=== PATIENT | male | born 1935 | race Caucasian/White ===

== ENCOUNTER → 2017-11-23 08:31 | Outpatient (CLI) | payer MEDICARE, SELFPAY ==
[2017-11-23 09:37] LABS: Add Manual Diff / Slide Review NO; Basophils Percent Auto 0.7 % (0-2); Eosinophils Percent Auto 4.6 % (2-4); Hematocrit 43.9 % (41-53); Hemoglobin 14.9 g/dL (13.5-17.5); Mean Corpuscular HGB Conc 33.9 % (30-36); Mean Corpuscular Hemoglobin 30.4 PG (26-34); Mean Corpuscular Volume 89.5 fL (80-100); Monocytes Percent Auto 10.2 % (3-14); Neutrophils Absolute Auto 4500 /uL (3000-5900); Neutrophils Percent Auto 66.5 % (50-75); Platelet Count 155 X10^3/uL (150-400); Red Blood Cell Count 4.91 X10^6/uL (4.5-5.9); White Blood Cell Count 6.7 X10^3/uL (4.5-11.0)
[2017-11-23 10:06] LABS: Alanine Aminotransferase 36 IU/L (21-72); Albumin 4.6 g/dL (3.5-5.0); Albumin Globulin Ratio 1.5 (1.0-2.8); Alkaline Phosphatase 76 U/L (38-126); Aspartate Aminotransferase 27 IU/L (17-59); BUN Creatinine Ratio 20.8 (6-22); Bilirubin Total 0.9 mg/dL (0.2-1.3); Blood Urea Nitrogen 27 mg/dL (9-20); Calcium 9.1 mg/dL (8.4-10.2); Carbon Dioxide 28 mmol/L (22-32); Chloride 104 mmol/L (98-107); Cholesterol 162 mg/dL (140-199); Estimated Glomerular Filt Rate 53.1 mL/min (>60); Globulin 3.1 g/dL (1.7-4.1); Glucose 102 mg/dL (80-110); HDL Cholesterol 53 mg/dL (40-60); HEMOLYSIS < 15 (0-50); LDL Cholesterol Calculated 84 mg/dL (<100); Potassium 4.1 mmol/L (3.4-5.1); Sodium 144 mmol/L (137-145); Total Protein 7.7 g/dL (6.3-8.2); Triglycerides 125 mg/dL (35-150)
[2017-11-23 10:47] LABS: Hemoglobin A1C% w Est Avg Glu 5.9 % (4.0-6.0)
== END ==
PROVIDERS: Visit Provider Internal Medicine
DX: I48.91 Unspecified atrial fibrillation (principal); E78.00 Pure hypercholesterolemia, unspecified; N18.9 Chronic kidney disease, unspecified; R73.01 Impaired fasting glucose
CPT/HCPCS: 36415; 80053; 80061; 83036; 83880; 85025

== ENCOUNTER → 2018-03-02 11:05 | Outpatient (CLI) | payer MEDICARE, SELFPAY ==
--- NOTE | 2018-03-02 | DI.CT.S_ITS ---
PROCEDURE: CT CHEST WO CON INDICATIONS: Chronic obstructive pulmonary disease, unspecified TECHNIQUE: Noncontrast 5 mm thick sections acquired from the pulmonary apices to the posterior costophrenic angles. 7 mm thick coronal and sagittal MIP reformats were then acquired. For radiation dose reduction, the following was used: automated exposure control, adjustment of mA and/or kV according to patient size. COMPARISON: [facility], CHEST 2 VIEW, 05/22/2016, 11:58. FINDINGS: Image quality: Excellent. Lungs and pleura: Linear scarring/atelectasis in anterior medial aspect of left upper lobe is seen. Scarring/atelectasis in the anteromedial aspect of right upper and middle lobes are also noted. Scarring/atelectasis in posterior medial aspect of bilateral lower lobes are seen. There is mild centrilobular emphysema. No pleural effusions or pneumothorax. Central and peripheral airways are patent and normal in caliber. Mediastinum: Heart size is enlarged. Trace amount of pericardial effusion is seen. No mediastinal adenopathy by size criteria. Thoracic aorta and central pulmonary arteries are normal in size. Atherosclerotic calcifications are noted throughout coronary vessels and thoracic aorta. Esophagus is normal in caliber. No hiatal hernia. Bones and chest wall: No suspicious bony lesions. No vertebral body compression fractures. No axillary or supraclavicular adenopathy by size criteria. Asymmetrically enlarged left thyroid lobe is seen containing a 3 x 2.9 cm hypodense nodule in mid to lower pole of left thyroid lobe. Abdomen: Visualized upper abdominal solid organs and bowel loops appear normal in the absence of contrast. 2.4 cm well-circumscribed hypodensity structure is seen in left hepatic dome and likely represent a small cyst. IMPRESSION: 1. Mild centrilobular emphysema. No focal infiltrate, pleural effusion or pneumothorax. Airways patent. 2. Scarring/atelectasis scattered in the periphery of bilateral lung parker. 3. No mediastinal or hilar adenopathy. Cardiomegaly and trace amount of pericardial effusion. 4. Suggestion of left hepatic cyst as above. Dictated by: Abimael Kelley M.D. on 03/02/2018 at 14:15 Approved by: Abimael Kelley M.D. on 03/02/2018 at 14:22
== END ==
PROVIDERS: Visit Provider Internal Medicine
DX: J43.2 Centrilobular emphysema (principal); J98.4 Other disorders of lung
CPT/HCPCS: 71250

== ENCOUNTER → 2018-08-09 11:20 | Outpatient (CLI) | payer MEDICARE, SELFPAY ==
[2018-08-09 12:12] LABS: Add Manual Diff / Slide Review NO; Basophils Absolute Auto 100 /uL (0-100); Basophils Percent Auto 0.7 % (0-2); Eosinophils Absolute Auto 100 /uL (0-450); Eosinophils Percent Auto 1.9 % (2-4); Hematocrit 42.8 % (41-53); Hemoglobin 14.4 g/dL (13.5-17.5); Lymphocytes Absolute Auto 1300 /uL (1100-4500); Lymphocytes Percent Auto 17.3 % (25-40); Mean Corpuscular HGB Conc 33.7 % (30-36); Mean Corpuscular Hemoglobin 31.2 PG (26-34); Mean Corpuscular Volume 92.5 fL (80-100); Monocytes Absolute Auto 600 /uL (0-900); Monocytes Percent Auto 8.9 % (3-14); Neutrophils Absolute Auto 5200 /uL (1500-7000); Neutrophils Percent Auto 71.2 % (50-75); Platelet Count 113 X10^3/uL (150-400); Red Blood Cell Count 4.63 X10^6/uL (4.5-5.9); Red Cell Distribution Width 14.3 % (11.6-14.8); White Blood Cell Count 7.3 X10^3/uL (4.5-11.0)
[2018-08-09 12:18] LABS: Hemoglobin A1C% w Est Avg Glu 5.8 % (4.0-6.0)
[2018-08-09 12:39] LABS: Alanine Aminotransferase 37 IU/L (21-72); Albumin Globulin Ratio 1.6 (1.0-2.8); Alkaline Phosphatase 74 U/L (38-126); Aspartate Aminotransferase 23 IU/L (17-59); BUN Creatinine Ratio 21.5 (6-22); Bilirubin Total 0.6 mg/dL (0.2-1.3); Blood Urea Nitrogen 28 mg/dL (9-20); Calcium 8.7 mg/dL (8.4-10.2); Carbon Dioxide 24 mmol/L (22-32); Chloride 104 mmol/L (98-107); Globulin 2.5 g/dL (1.7-4.1); Glucose 132 mg/dL (80-110); HEMOLYSIS < 15 (0-50); Potassium 3.7 mmol/L (3.4-5.1); Sodium 140 mmol/L (137-145); Total Protein 6.5 g/dL (6.3-8.2)
== END ==
PROVIDERS: PCP Internal Medicine; Visit Provider Internal Medicine
DX: I48.91 Unspecified atrial fibrillation (principal); N18.9 Chronic kidney disease, unspecified; R73.01 Impaired fasting glucose
CPT/HCPCS: 36415; 80053; 83036; 85025

== ENCOUNTER → 2018-12-07 13:15 | Outpatient (CLI) | payer MEDICARE, SELFPAY | PROVIDERS: PCP Internal Medicine; Visit Provider Physician Assistant | DX: R21 Rash and other nonspecific skin eruption (principal) | CPT/HCPCS: 87070; 87205; 87252 ==

== ENCOUNTER → 2019-03-11 11:42 | Outpatient (CLI) | payer MEDICARE, SELFPAY ==
[2019-03-11 13:18] LABS: Blood Urea Nitrogen 36 mg/dL (9-20); Calcium 9.3 mg/dL (8.4-10.2); Carbon Dioxide 30 mmol/L (22-32); Chloride 102 mmol/L (98-107); Estimated Glomerular Filt Rate 44.9 mL/min (>60); Glucose 131 mg/dL (80-110); HEMOLYSIS < 15 (0-50); Potassium 4.2 mmol/L (3.4-5.1); Sodium 143 mmol/L (137-145)
[2019-03-11 13:54] LABS: TSH w/ Reflex to FT4 1.01 uIU/mL (0.47-4.68)
== END ==
PROVIDERS: Family Provider Internal Medicine; PCP Internal Medicine; Visit Provider Physician Assistant
DX: I48.0 Paroxysmal atrial fibrillation (principal)
CPT/HCPCS: 36415; 80048; 84443

== ENCOUNTER → 2019-03-28 08:56 | Outpatient (CLI) | payer MEDICARE, SELFPAY ==
--- NOTE | 2019-03-28 | DI.ECHO.S_ITS ---
[place] [facility]---------+ [facility] +---------+ : : [address] : : : : [id number] : : : : Phone: [phone] Echocardiogram Report + + :Name: RYAN CANELA Study Date: 03/28/2019 Height: 71 in : :[facility] Weight: 238 lb : : Gender: Male BSA: 2.3 m2 : :: 1935 Age: 83 yrs BP: 142/76 mmHg: :Reason For Study: AFIB : : Performed By: [facility] Staff : :Referring: UNSPECIFIED : + + Interpretation Summary 1) Normal left ventricular size, wall motion, and systolic function (EF 60- 65%). 2) Mildly enlarged right ventricular size with mildly to moderately reduced function. 3) The left atrium is severely dilated. The right atrium is moderate to severely dilated. 4) There is moderate aortic stenosis (valve area 1.0cm2, mean gradient 21mmHG, severity ratio 0.32). 5) There is moderate tricuspid regurgitation. 6) Right ventricular systolic pressure is estimated to be 58 mmHg plus the clinically estimated CVP which cannot be estimated on this exam. 7) Compared to the Echo done , aortic stenosis has progressed from mild to moderate on this study and pulmonary hypertension is present on this study. Procedure: A two-dimensional transthoracic echocardiogram with color flow and Doppler was performed. The study quality was technically adequate. Prior echo performed on 01/24/16. The patient was in normal sinus rhythm during the exam. Left Ventricle: The left ventricle is normal in size. There is mild concentric left ventricular hypertrophy. Left ventricular systolic function is normal. The ejection fraction is estimated to be 60-65%. Left ventricular wall motion is normal. Right Ventricle: The right ventricle is mildly dilated. Right ventricular systolic function is mild to moderately reduced. Atria: The left atrium is severely dilated. The right atrium is moderate to severely dilated. The interatrial septum is intact with no evidence for an atrial septal defect. Mitral Valve: The mitral valve leaflets appear mildly thickened, but open well. There is mild mitral annular calcification. There is mild mitral regurgitation. Aortic Valve: The aortic valve is moderately calcified. There is moderate aortic stenosis. The aortic valve area is 1.9 centimeters squared by planimetry. The calculated aortic valve area is 1.0 cm2. The peak aortic velocity is 3.0 m/sec. The aortic valve mean gradient is 21 mmHg. No aortic regurgitation is present. Tricuspid Valve: The tricuspid valve leaflets are thin and pliable. There is moderate tricuspid regurgitation. Right ventricular systolic pressure is estimated to be 58 mmHg plus the clinically estimated CVP which cannot be estimated on this exam. Pulmonic Valve: The pulmonic valve is not well visualized. There is trace pulmonic regurgitation. Great Vessels: The aortic root is normal size. The dimensions of the ascending aorta are normal. The pulmonary artery is normal size. The inferior vena cava was not visualized. Pericardium/ Pleura There is no pericardial effusion. There is no pleural effusion. MMode/2D Measurements & Calculations LVIDd: 5.1 cm LVOT diam: 2.0 cm LVIDs: 3.4 cm Ao root diam: 3.5 cm FS: 33.2 % Aortic Jxn: 2.7 cm EPSS: 0.66 cm asc Aorta Diam: 3.5 cm IVSd: 1.3 cm LVPWd: 1.3 cm LV mallory. diameter/BSA (cm/m^2): 2.3 LV sys. diameter/BSA (cm/m^2): 1.5 LA A2 area: 37.0 cm2 RA long axis: 5.9 cm LA A4 area: 32.4 cm2 RA area: 25.3 cm2 LA length (vol): 7.0 cm RA vol: 92.3 ml LA vol: 145.3 ml RA : 40.6 ml/m2 LA vol index: 64.0 ml/m2 TAPSE: 1.6 cm BLANQUITA (plan): 1.9 cm2 Doppler Measurements & Calculations Ao V2 max: 300.6 cm/sec LVOT Max Laurent: 96.3 cm/sec Ao V2 mean: 211.2 cm/sec LV V1 max P.7 mmHg Ao max P.1 mmHg LV V1 VTI: 22.8 cm Ao mean P.9 mmHg BLANQUITA(I,D): 1.0 cm2 Ao V2 VTI: 70.8 cm BLANQUITA(V,D): 1.0 cm2 sev ratio: 0.32 BLANQUITA indexed to BSA (cm^2/m^2): 0.45 MV E max laurent: 82.4 cm/sec TR max laurent: 376.6 cm/sec Med Peak E' Laurent: 6.8 cm/sec TR max P.7 mmHg E/E' med: 12.1 PA V2 max: 84.4 cm/sec Lat Peak E' Laurent: 9.2 cm/sec PA V2 mean: 59.7 cm/sec E/E' lat: 9.0 PA mean P.6 mmHg E/e' average: 10.5 PA Accel Time: 0.08 sec SV(LVOT): 72.4 ml Reading Physician:10:57 AM
== END ==
PROVIDERS: Family Provider Internal Medicine; PCP Internal Medicine; Visit Provider Physician Assistant
DX: I08.3 Combined rheumatic disorders of mitral, aortic and tricuspid valves (principal); I48.0 Paroxysmal atrial fibrillation; I27.20 Pulmonary hypertension, unspecified
CPT/HCPCS: 93306

== ENCOUNTER → 2019-04-14 08:58 | Outpatient (CLI) | payer MEDICARE, SELFPAY ==
[2019-04-14 10:23] LABS: Add Manual Diff / Slide Review NO; Basophils Absolute Auto 0 /uL (0-100); Basophils Percent Auto 0.6 % (0-2); Eosinophils Absolute Auto 100 /uL (0-450); Eosinophils Percent Auto 1.7 % (2-4); Hematocrit 43.3 % (41-53); Hemoglobin 14.8 g/dL (13.5-17.5); Lymphocytes Absolute Auto 1200 /uL (1100-4500); Lymphocytes Percent Auto 17.2 % (25-40); Mean Corpuscular HGB Conc 34.2 % (30-36); Mean Corpuscular Hemoglobin 30.9 PG (26-34); Mean Corpuscular Volume 90.1 fL (80-100); Monocytes Absolute Auto 600 /uL (0-900); Monocytes Percent Auto 8.2 % (3-14); Neutrophils Absolute Auto 5000 /uL (1500-7000); Neutrophils Percent Auto 72.3 % (50-75); Platelet Count 111 X10^3/uL (150-400); Red Blood Cell Count 4.81 X10^6/uL (4.5-5.9); Red Cell Distribution Width 14.4 % (11.6-14.8); White Blood Cell Count 6.9 X10^3/uL (4.5-11.0)
[2019-04-14 10:58] LABS: Blood Urea Nitrogen 28 mg/dL (9-20); Calcium 8.6 mg/dL (8.4-10.2); Carbon Dioxide 27 mmol/L (22-32); Chloride 104 mmol/L (98-107); Estimated Glomerular Filt Rate 48.6 mL/min (>60); Glucose 133 mg/dL (80-110); Potassium 3.6 mmol/L (3.4-5.1); Sodium 141 mmol/L (137-145)
[2019-04-14 10:59] LABS: HEMOLYSIS 54 (0-50)
== END ==
PROVIDERS: PCP Internal Medicine; Visit Provider Internal Medicine
DX: N18.9 Chronic kidney disease, unspecified (principal); I10 Essential (primary) hypertension; J44.9 Chronic obstructive pulmonary disease, unspecified
CPT/HCPCS: 36415; 80048; 85025

== ENCOUNTER → 2019-07-15 09:04 | Outpatient (CLI) | payer MEDICARE, SELFPAY ==
[2019-07-15 10:19] LABS: Alanine Aminotransferase 30 IU/L (<50); Albumin Globulin Ratio 1.2 (1.0-2.8); Alkaline Phosphatase 100 U/L (38-126); Aspartate Aminotransferase 28 IU/L (17-59); BUN Creatinine Ratio 19.7 (6-22); Bilirubin Total 0.7 mg/dL (0.2-1.3); Blood Urea Nitrogen 25 mg/dL (9-20); Carbon Dioxide 25 mmol/L (22-32); Chloride 107 mmol/L (98-107); Cholesterol 118 mg/dL (140-199); Estimated Glomerular Filt Rate 54.3 mL/min (>60); Globulin 3.4 g/dL (1.7-4.1); Glucose 150 mg/dL (80-110); HDL Cholesterol 29 mg/dL (40-60); HEMOLYSIS < 15 (0-50); LDL Cholesterol Calculated 58 mg/dL (<100); Potassium 3.6 mmol/L (3.4-5.1); Sodium 141 mmol/L (137-145); Total Protein 7.4 g/dL (6.3-8.2); Triglycerides 156 mg/dL (35-150)
== END ==
PROVIDERS: PCP Internal Medicine; Referring Provider Internal Medicine Cardiovascular Disease; Visit Provider Internal Medicine Cardiovascular Disease
DX: E78.5 Hyperlipidemia, unspecified (principal)
CPT/HCPCS: 36415; 80053; 80061

== ENCOUNTER → 2019-10-20 09:33 | Outpatient (CLI) | payer MEDICARE, SELFPAY ==
[2019-10-20 10:36] LABS: Add Manual Diff / Slide Review NO; Basophils Absolute Auto 100 /uL (0-100); Basophils Percent Auto 0.8 % (0-2); Eosinophils Absolute Auto 100 /uL (0-450); Eosinophils Percent Auto 1.9 % (2-4); Hematocrit 40.4 % (41-53); Hemoglobin 14.1 g/dL (13.5-17.5); Lymphocytes Absolute Auto 1000 /uL (1100-4500); Lymphocytes Percent Auto 13.8 % (25-40); Mean Corpuscular Hemoglobin 31.9 PG (26-34); Monocytes Absolute Auto 700 /uL (0-900); Monocytes Percent Auto 9.1 % (3-14); Neutrophils Absolute Auto 5300 /uL (1500-7000); Neutrophils Percent Auto 74.4 % (50-75); Platelet Count 100 X10^3/uL (150-400); Red Blood Cell Count 4.44 X10^6/uL (4.5-5.9); Red Cell Distribution Width 14.9 % (11.6-14.8); White Blood Cell Count 7.2 X10^3/uL (4.5-11.0)
[2019-10-20 10:51] LABS: Alanine Aminotransferase 24 IU/L (<50); Albumin 4.1 g/dL (3.5-5.0); Albumin Globulin Ratio 1.4 (1.0-2.8); Alkaline Phosphatase 77 U/L (38-126); Aspartate Aminotransferase 24 IU/L (17-59); BUN Creatinine Ratio 23.7 (6-22); Blood Urea Nitrogen 33 mg/dL (9-20); Calcium 9.2 mg/dL (8.4-10.2); Carbon Dioxide 27 mmol/L (22-32); Chloride 104 mmol/L (98-107); Cholesterol 163 mg/dL (140-199); Estimated Glomerular Filt Rate 48.9 mL/min (>60); Glucose 150 mg/dL (80-110); HDL Cholesterol 41 mg/dL (40-60); HEMOLYSIS < 15 (0-50); LDL Cholesterol Calculated 77 mg/dL (<100); Sodium 139 mmol/L (137-145); Total Protein 7.1 g/dL (6.3-8.2); Triglycerides 224 mg/dL (35-150)
[2019-10-20 15:02] LABS: Hemoglobin A1C% w Est Avg Glu 6.4 % (4.0-6.0)
== END ==
PROVIDERS: PCP Internal Medicine; Referring Provider Internal Medicine; Visit Provider Internal Medicine
DX: D69.6 Thrombocytopenia, unspecified (principal); E78.00 Pure hypercholesterolemia, unspecified; R73.01 Impaired fasting glucose
CPT/HCPCS: 36415; 80053; 80061; 83036; 85025

== ENCOUNTER → 2019-12-05 09:44 | Outpatient (CLI) | payer MEDICARE, SELFPAY ==
[2019-12-05 10:46] LABS: BUN Creatinine Ratio 22.6 (6-22); Blood Urea Nitrogen 30 mg/dL (9-20); Calcium 8.9 mg/dL (8.4-10.2); Carbon Dioxide 26 mmol/L (22-32); Chloride 104 mmol/L (98-107); Estimated Glomerular Filt Rate 51.5 mL/min (>60); Glucose 134 mg/dL (80-110); HEMOLYSIS < 15 (0-50); Potassium 4.1 mmol/L (3.4-5.1); Sodium 138 mmol/L (137-145)
== END ==
PROVIDERS: PCP Internal Medicine; Referring Provider Physician Assistant; Visit Provider Physician Assistant
DX: I10 Essential (primary) hypertension (principal)
CPT/HCPCS: 36415; 80048

== ENCOUNTER → 2020-04-10 17:04 | Outpatient (ROUT) | payer MEDICARE, SELFPAY ==
[2020-04-10 17:12] LABS: Add Manual Diff / Slide Review NO; Basophils Absolute Auto 0 /uL (0-100); Basophils Percent Auto 0.6 % (0-2); Eosinophils Absolute Auto 200 /uL (0-450); Eosinophils Percent Auto 2.9 % (2-4); Hemoglobin 13.1 g/dL (13.5-17.5); Lymphocytes Absolute Auto 1000 /uL (1100-4500); Lymphocytes Percent Auto 13.5 % (25-40); Mean Corpuscular HGB Conc 33.6 % (30-36); Mean Corpuscular Hemoglobin 30.8 PG (26-34); Mean Corpuscular Volume 91.7 fL (80-100); Monocytes Absolute Auto 600 /uL (0-900); Monocytes Percent Auto 8.3 % (3-14); Neutrophils Absolute Auto 5300 /uL (1500-7000); Neutrophils Percent Auto 74.7 % (50-75); Platelet Count 118 X10^3/uL (150-400); Red Blood Cell Count 4.25 X10^6/uL (4.5-5.9); Red Cell Distribution Width 15.1 % (11.6-14.8); White Blood Cell Count 7.1 X10^3/uL (4.5-11.0)
[2020-04-10 17:16] LABS: BUN Creatinine Ratio 20.1 (6-22); Blood Urea Nitrogen 27 mg/dL (9-20); Calcium 8.9 mg/dL (8.4-10.2); Carbon Dioxide 27 mmol/L (22-32); Chloride 103 mmol/L (98-107); Glucose 151 mg/dL (80-110); HEMOLYSIS < 15 (0-50); Potassium 4.1 mmol/L (3.4-5.1); Sodium 138 mmol/L (137-145)
== END ==
PROVIDERS: PCP Internal Medicine; Visit Provider Internal Medicine
DX: E11.9 Type 2 diabetes mellitus without complications (principal); N18.9 Chronic kidney disease, unspecified; D69.6 Thrombocytopenia, unspecified
CPT/HCPCS: 80048; 85025

== ENCOUNTER 2022-02-25 07:47 | Emergency (ER) | payer MEDICARE, SELFPAY ==
[2022-02-25 07:53] VITALS: BP 180/83; PULSE 81; PULSE 88; RESP 20; TEMP 36.6; O2SAT 97
--- NOTE | 2022-02-25 08:01 | ED_ITS ---
HPI - Male Genitourinary General Chief complaint: Urogenital-Male Stated complaint: peeing blood Time Seen by Provider: 02/25/22 08:01 Source: patient Mode of arrival: Ambulatory Limitations: no limitations History of Present Illness HPI Narrative: This is an 86-year-old male with history of atrial fibrillation on warfarin, flecainide and COPD with history of prior kidney stones. Patient states this morning he started having dysuria, hematuria little bit of abdominal pain. Patient states feels similar to when he is had prior kidney stones. Patient denies fevers or chills. Patient denies any nausea or vomiting. No new chest pain or shortness of breath. No abdominal or flank pain currently but states he took a Percocet earlier. Patient denies constipation. Some diarrhea earlier this week but has since stopped. No black or bloody stools. Patient describes dysuria, no urgency frequency feels there may be sense of incomplete emptying but he does not feel like he is retaining or has a lot of urine in his bladder. Patient has had a prostatectomy for prostate cancer in the past, denies any prior cardiac surgeries. Denies any allergies to medications. Quit smoking in 2013. Drinks 1-2 alcoholic drinks daily but has not had any for the past week. Primary care is Dr. Nino. He is accompanied by his of 40 years today. Related Data Home Medications Medication Instructions Recorded Confirmed carvedilol phosphate 20 mg 20 mg PO DAILY 12/07/18 12/07/18 capsule,[id number] multiphase flecainide 50 mg tablet 50 mg PO Q12H 12/07/18 12/07/18 fluticasone propion-salmeterol inhalation 12/07/18 12/07/18 [Advair Diskus] furosemide 40 mg tablet 40 mg PO DAILY 12/07/18 12/07/18 losartan 50 mg tablet 50 mg PO DAILY 12/07/18 12/07/18 multivitamin-ferrous 1 tab PO DAILY 12/07/18 12/07/18 fumarate-folic acid 18 mg-400 mcg tablet (Centrum) simvastatin 20 mg tablet 20 mg PO BEDTIME 12/07/18 12/07/18 tiotropium bromide [Spiriva inhalation 12/07/18 12/07/18 Respimat] warfarin 2.5 mg tablet 2.5 mg PO DAILY 12/07/18 12/07/18 Previous Rx's Medication Instructions Recorded triamcinolone acetonide 0.1 % 1 applic topical TID #80 grams 03/14/20 topical cream nitrofurantoin 100 mg PO Q12H 7 days #14 caps 02/25/22 monohydrate/macrocrystals 100 mg capsule (Macrobid) nitrofurantoin 100 mg PO Q12H 7 days #14 caps 02/25/22 monohydrate/macrocrystals 100 mg capsule (Macrobid) Allergies Allergy/AdvReac Type Severity Reaction Status Date / Time No Known Drug Allergies Allergy Verified 12/07/18 13:05 Review of Systems Review of Systems ROS Unobtainable: All systems reviewed & are unremarkable except as noted in HPI and below Patient History Medical History Shingles Social History Smoking Status: Former smoker Smoking Status: Former smoker Exam Narrative Exam Narrative: GENERAL: Alert and oriented x three, male in mild distress HEENT: Head normocephalic, atraumatic, EOMI, pupils reactive, face symmetric, moist mucous membranes NECK: Supple, full range of motion CARDIOVASCULAR: Regular rate and rhythm without murmurs, rubs or gallops. RESPIRATORY: Breath sounds equal bilaterally, no wheezes rales or rhonchi. ABDOMEN: Soft, nontender. Normoactive bowel sounds all 4 quadrants. No guarding or rebound, rigidity, no mass : No CVA tenderness EXTREMITIES: Normal range of motion, no clubbing or edema. Neurovascularly intact NEUROLOGICAL: Cranial nerves II through XII grossly intact. Moving all extremities SKIN: Warm, dry, no petechiae, no rashes or lesions. Initial Vital Signs Initial Vital Signs: Vital Signs Temperature 97.9 F 02/25/22 07:53 Pulse Rate 88 02/25/22 07:53 Respiratory Rate 20 02/25/22 07:53 Blood Pressure 180/83 H 02/25/22 07:53 Pulse Oximetry 97 02/25/22 07:53 Oxygen Delivery Method 02/25/22 07:53 Course Orders Ordered: Discontinued Medications Ketorolac Tromethamine (Ketorolac 30 Mg/Ml Vial) 15 mg IV NOW ONE Stop: 02/25/22 08:02 Last Admin: 02/25/22 08:09 Dose: Not Given Documented By: RLS Vital Signs Vital signs: Vital Signs - 8 hr 02/25/22 07:53 02/25/22 07:53 02/25/22 07:53 Temperature 97.9 F Pulse Rate 88 81 Respiratory Rate 20 Blood Pressure 180/83 H 180/83 H Pulse Oximetry 97 97 Oxygen Delivery Method Room Air 02/25/22 08:21 02/25/22 08:23 02/25/22 08:23 Temperature Pulse Rate 73 81 Respiratory Rate Blood Pressure 166/88 H Pulse Oximetry 98 96 Oxygen Delivery Method 02/25/22 08:32 Temperature Pulse Rate 77 Respiratory Rate Blood Pressure Pulse Oximetry 100 Oxygen Delivery Method MDM - Male Genitourinary Lab Data Result diagrams: 02/25/22 08:15 02/25/22 08:15 Labs: Lab Results 02/25/22 02/25/22 02/25/22 Range/Units 08:15 08:15 08:15 WBC 10.2 (4.5-11.0) X10^3/uL RBC 4.40 L (4.5-5.9) X10^6/uL Hgb 12.8 L (13.5-17.5) g/dL Hct 37.8 L (41-53) % MCV 85.8 (80-100) fL MCH 29.0 (26-34) PG MCHC 33.8 (30-36) % RDW 14.9 H (11.6-14.8) % Plt Count 154 (150-400) X10^3/uL Neut % (Auto) 79.7 H (50-75) % Lymph % (Auto) 7.7 L (25-40) % [place] % (Auto) 7.9 (3-14) % Eos % (Auto) 3.6 (2-4) % Baso % (Auto) 1.1 (0-2) % Neut # (Auto) 8100 H (1436-1185) /uL Lymph # (Auto) 800 L (6749-9028) /uL [place] # (Auto) 800 (0-900) /uL Eos # (Auto) 400 (0-450) /uL Baso # (Auto) 100 (0-100) /uL PT 27.7 H (10.1-12.7) SECONDS INR 2.4 H (0.9-1.3) Sodium 141 (137-145) mmol/L Potassium 3.9 (3.4-5.1) mmol/L Chloride 102 (98-107) mmol/L Carbon Dioxide 25 (22-32) mmol/L BUN 32 H (9-20) mg/dL Creatinine 1.58 H (0.66-1.25) mg/dL Estimated GFR 43 L (>60) mL/min BUN/Creatinine Ratio 20.3 (6-22) Glucose 192 H (80-110) mg/dL Calcium 8.8 (8.4-10.2) mg/dL Total Bilirubin 1.0 (0.2-1.3) mg/dL AST 28 (17-59) IU/L ALT 43 (<50) IU/L Alkaline Phosphatase 114 (38-126) U/L Total Protein 7.6 (6.3-8.2) g/dL Albumin 4.0 (3.5-5.0) g/dL Globulin 3.6 (1.7-4.1) g/dL Albumin/Globulin Ratio 1.1 (1.0-2.8) Lipase 485 H (23-300) U/L Urine Color Urine Appearance Urine pH (4.5-8.0) Ur Specific [place] (1.000-1.035) Urine Protein (Negative) Urine Glucose (UA) (Negative) g/dL Urine Ketones (NEGATIVE) Urine Occult Blood (Negative) Urine Nitrate (Negative) Urine Bilirubin (NEGATIVE) Ur Bilirubin Confirm (Negative) Urine Urobilinogen (0.2) E.U./dL Ur Leukocyte Esterase (NEGATIVE) Urine RBC (0-5/HPF) Urine WBC (0-5/HPF) Ur Squamous Epith Cells (0-5/HPF) Urine Bacteria (None) Ur Culture Indicated? 02/25/22 Range/Units 08:30 WBC (4.5-11.0) X10^3/uL RBC (4.5-5.9) X10^6/uL Hgb (13.5-17.5) g/dL Hct (41-53) % MCV (80-100) fL MCH (26-34) PG MCHC (30-36) % RDW (11.6-14.8) % Plt Count (150-400) X10^3/uL Neut % (Auto) (50-75) % Lymph % (Auto) (25-40) % [place] % (Auto) (3-14) % Eos % (Auto) (2-4) % Baso % (Auto) (0-2) % Neut # (Auto) (6111-1500) /uL Lymph # (Auto) (0588-3440) /uL [place] # (Auto) (0-900) /uL Eos # (Auto) (0-450) /uL Baso # (Auto) (0-100) /uL PT (10.1-12.7) SECONDS INR (0.9-1.3) Sodium (137-145) mmol/L Potassium (3.4-5.1) mmol/L Chloride (98-107) mmol/L Carbon Dioxide (22-32) mmol/L BUN (9-20) mg/dL Creatinine (0.66-1.25) mg/dL Estimated GFR (>60) mL/min BUN/Creatinine Ratio (6-22) Glucose (80-110) mg/dL Calcium (8.4-10.2) mg/dL Total Bilirubin (0.2-1.3) mg/dL AST (17-59) IU/L ALT (<50) IU/L Alkaline Phosphatase (38-126) U/L Total Protein (6.3-8.2) g/dL Albumin (3.5-5.0) g/dL Globulin (1.7-4.1) g/dL Albumin/Globulin Ratio (1.0-2.8) Lipase (23-300) U/L Urine Color Brown Urine Appearance Turbid Urine pH 5.0 (4.5-8.0) Ur Specific [place] 1.010 (1.000-1.035) Urine Protein 3+ H (Negative) Urine Glucose (UA) Negative (Negative) g/dL Urine Ketones Trace H (NEGATIVE) Urine Occult Blood 3+ H (Negative) Urine Nitrate Negative (Negative) Urine Bilirubin 1+ H (NEGATIVE) Ur Bilirubin Confirm Negative (Negative) Urine Urobilinogen 0.2 (0.2) E.U./dL Ur Leukocyte Esterase 3+ H (NEGATIVE) Urine RBC >100/hpf H (0-5/HPF) Urine WBC >100/hpf H (0-5/HPF) Ur Squamous Epith Cells 1-5 /hpf (0-5/HPF) Urine Bacteria None seen (None) Ur Culture Indicated? Specimen cultured Imaging Data CT scan - abdomen/pelvis: Radiologist's Impression: Close Abdomen/Pelvis CT (Signed) Loulou Solo - 02/25/22 Launch?[address] [address] [address] Scan Report Signed Patient: Kodi Paredes MR#: [id number] : 1935 Acct:[id number] Age/Sex: 86 / M Date of Service: 02/25/22 Loc: ED Accession Number: [id number] ?? Procedure: CT kidney ureter bladder (KUB) Ordering Provider: Mercedes Chavez D.O. PROCEDURE:? CT KIDNEY URETER BLADDER (KUB) ? INDICATIONS:? hematuria, pain ? TECHNIQUE:? Axial sections were acquired from the lung bases to the pubic symphysis.? Coronal and sagittal reformats were performed.? For radiation dose reduction, the following was used: ?automated exposure control, adjustment of mA and/or kV according to patient size.? ? COMPARISON:? [facility], CT, KUB - CT (PNL), 04/05/2014, 8:41. ? FINDINGS:? Image quality:? Excellent.? ? Lung bases:? Mild basilar septal thickening.? Small rounded atelectatic change in the lingula. Heart:? Moderate cardiomegaly.? Dense coronary artery calcification and aortic valvular calcification.? Trace pericardial effusion or thickening. ? URINARY: Right Kidney:? Several cysts arise from the kidney, the largest measuring 5.9 cm.? 1.9 cm mildly hyperdense nodule arises from the lateral kidney.? Punctate nonobstructing intrarenal calculus in the lower pole.? No hydronephrosis.? Right Ureter:? No hydroureter or ureteral calcification.? ? Left Kidney:? Renal cortical thinning.? Numerous cortical cysts present.? Nonobstructing intrarenal calculi, largest measuring up to 8 mm.? Hounsfield units of 302. Chronic appearing severe lower pole hydronephrosis and dilatation of the renal pelvis.? Severe stricture without stone at the ureteropelvic junction..? Left Ureter:? No hydroureter or ureteral calcification. ? Bladder:? Urinary bladder is diffusely decompressed.? No stones. ? ABDOMEN: Liver:? Interval enlargement the left hepatic lobe cyst, now measuring about 4 cm. Gallbladder:? Absent gallbladder with a peripherally calcified stone measuring 1.1 cm in the residual cystic duct. Biliary ducts:? Nondilated. Pancreas:? Normal. Spleen:? Normal size. Adrenal Glands:? Low-density 2.4 cm mass arising from the body of the right adrenal gland.? New compared to the prior study.? No left adrenal mass. ? Stomach and Bowel:? Stomach, small bowel loops, and colon are unremarkable.? The appendix was not seen.? There are several surgical clips in the right lower quadrant, potentially from appendectomy. Peritoneum:? No abnormal intraperitoneal fluid.? No free air.? ? Ventral Wall: ? No hernia.? Abdominal Nodes:? No enlarged retroperitoneal or mesenteric lymph nodes.? Vessels:? Aorta and inferior vena cava are normal in size.? 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 Heavy abdominal aortic atherosclerotic calcification. ? PELVIS: Pelvic Organs:? The prostate gland is surgically absent and there are surgical clips in the prostate bed. Pelvic Nodes: Unremarkable. Miscellaneous: No inguinal hernias are seen. ? ? ? Bones:? Demineralization.? Disc height loss L5-S1.? No suspicious bone lesions. ? IMPRESSION: ? 1. Chronic nonobstructing intrarenal calculi in the left kidney. ? 2. 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 No significant change since 2014. ? 3. Slight interval enlargement in mildly complex or hyperdense cyst arising from the lateral right kidney, potentially proteinaceous.? Solid mass is not excluded without IV contrast. ? 4. Decompressed urinary bladder without stone. ? 5. Development 2.4 cm right adrenal adenoma.? Dictated by: Loulou Solo M.D. on 02/25/2022 at 8:11 ? ? Approved by: Loulou Solo M.D. on 02/25/2022 at 8:31? MDM Narrative Medical decision making narrative: This is an 86-year-old male with hematuria with complaint of dysuria labs show a slight bump in creatinine of 1.58 looks like his baseline is 1.3 range. No electrolyte abnormalities INR is 2.4, patient has anemia but appears stable. Patient's urine shows white cells, no nitrates would treat for UTI he has having some clinical symptoms. CT does show no acute calculi in the ureter but has left chronic UPJ stricture with chronic severe hydro unchanged since 2013 in a slight interval enlargement in the complex or hyperdense cyst in the right lateral kidney, patient was unaware of these does not think he is seen Urology but his and he would be happy to see Dr. Brunner at [facility]. Will give disc, would cover with antibiotics and have patient have his renal function rechecked in the next week and follow-up with urology for workup. Discharge Plan Departure Patient Disposition: Home Clinical Impression: Stricture of left ureter, Cyst of right kidney, Renal cell adenoma of right kidney, Acute UTI Instructions: DI for Urinary Tract Infection (UTI) Activity Restrictions/Additional Instructions: Follow-up with urology for recheck. You have a stricture of the left ureter blocking some of the flow of your urine, you also have a complex cyst on the right kidney which needs to be worked up and fully evaluated with urology There is also a new mass in your right adrenal gland. Your INR today is 2.4 and your creatinine is 1.5. Your creatinine is typically 1.3 and should be rechecked in the next week with your physician or Urology. Take antibiotics until completely gone Prescription sent to [facility] in [place] Please return for rapidly worsening pain, persistent vomiting, persisting bloody urination, large clots or inability to urinate, new back or flank pain, passing out or other new or concerning changes. Prescriptions: New nitrofurantoin monohyd/m-cryst [Macrobid] 100 mg capsule 100 mg PO Q12H 7 Days Qty: 14 0RF Rx Instructions: must administer with a meal/food nitrofurantoin monohyd/m-cryst [Macrobid] 100 mg capsule 100 mg PO Q12H 7 Days Qty: 14 0RF Rx Instructions: must administer with a meal/food No Action losartan 50 mg tablet 50 mg PO DAILY furosemide 40 mg tablet 40 mg PO DAILY warfarin 2.5 mg tablet 2.5 mg PO DAILY simvastatin 20 mg tablet 20 mg PO BEDTIME flecainide 50 mg tablet 50 mg PO Q12H carvedilol phosphate 20 mg capsule, ER multiphase 24 hr 20 mg PO DAILY Centrum 18-400 mg-mcg tablet 1 tab PO DAILY fluticasone propion-salmeterol INHALATION tiotropium bromide INHALATION triamcinolone acetonide 0.1 % cream 1 applic TOP TID Qty: 80 0RF Referrals: Hunter Nino MD [Primary Care Provider] - Kayce Brunner MD [Non-Staff] - Visit Report Forms: Patient Portal/API
[2022-02-25 08:21] VITALS: PULSE 73; O2SAT 98
[2022-02-25 08:23] VITALS: BP 166/88; PULSE 81; O2SAT 96
[2022-02-25 08:32] VITALS: PULSE 77; O2SAT 100
[2022-02-25 08:32] LABS: Add Manual Diff / Slide Review NO; Basophils Absolute Auto 100 /uL (0-100); Basophils Percent Auto 1.1 % (0-2); Eosinophils Absolute Auto 400 /uL (0-450); Eosinophils Percent Auto 3.6 % (2-4); Hematocrit 37.8 % (41-53); Hemoglobin 12.8 g/dL (13.5-17.5); Lymphocytes Absolute Auto 800 /uL (1100-4500); Lymphocytes Percent Auto 7.7 % (25-40); Mean Corpuscular HGB Conc 33.8 % (30-36); Mean Corpuscular Volume 85.8 fL (80-100); Monocytes Absolute Auto 800 /uL (0-900); Monocytes Percent Auto 7.9 % (3-14); Neutrophils Absolute Auto 8100 /uL (1500-7000); Neutrophils Percent Auto 79.7 % (50-75); Platelet Count 154 X10^3/uL (150-400); Red Cell Distribution Width 14.9 % (11.6-14.8); White Blood Cell Count 10.2 X10^3/uL (4.5-11.0)
[2022-02-25 08:35] LABS: Alanine Aminotransferase 43 IU/L (<50); Albumin Globulin Ratio 1.1 (1.0-2.8); Alkaline Phosphatase 114 U/L (38-126); Aspartate Aminotransferase 28 IU/L (17-59); BUN Creatinine Ratio 20.3 (6-22); Blood Urea Nitrogen 32 mg/dL (9-20); Calcium 8.8 mg/dL (8.4-10.2); Carbon Dioxide 25 mmol/L (22-32); Chloride 102 mmol/L (98-107); Estimated Glomerular Filt Rate 43 mL/min (>60); Globulin 3.6 g/dL (1.7-4.1); Glucose 192 mg/dL (80-110); HEMOLYSIS < 15 (0-50); Lipase 485 U/L (23-300); Potassium 3.9 mmol/L (3.4-5.1); Sodium 141 mmol/L (137-145); Total Protein 7.6 g/dL (6.3-8.2)
[2022-02-25 08:36] LABS: INR 2.4 (0.9-1.3); Prothrombin Time 27.7 SECONDS (10.1-12.7)
--- NOTE | 2022-02-25 08:39 | DI.CT.S_ITS ---
PROCEDURE: CT KIDNEY URETER BLADDER (KUB) INDICATIONS: hematuria, pain TECHNIQUE: Axial sections were acquired from the lung bases to the pubic symphysis. Coronal and sagittal reformats were performed. For radiation dose reduction, the following was used: automated exposure control, adjustment of mA and/or kV according to patient size. COMPARISON: [facility], CT, KUB - CT (PNL), 04/05/2014, 8:41. FINDINGS: Image quality: Excellent. Lung bases: Mild basilar septal thickening. Small rounded atelectatic change in the lingula. Heart: Moderate cardiomegaly. Dense coronary artery calcification and aortic valvular calcification. Trace pericardial effusion or thickening. URINARY: Right Kidney: Several cysts arise from the kidney, the largest measuring 5.9 cm. 1.9 cm mildly hyperdense nodule arises from the lateral kidney. Punctate nonobstructing intrarenal calculus in the lower pole. No hydronephrosis. Right Ureter: No hydroureter or ureteral calcification. Left Kidney: Renal cortical thinning. Numerous cortical cysts present. Nonobstructing intrarenal calculi, largest measuring up to 8 mm. Hounsfield units of 302. Chronic appearing severe lower pole hydronephrosis and dilatation of the renal pelvis. Severe stricture without stone at the ureteropelvic junction.. Left Ureter: No hydroureter or ureteral calcification. Bladder: Urinary bladder is diffusely decompressed. No stones. ABDOMEN: Liver: Interval enlargement the left hepatic lobe cyst, now measuring about 4 cm. Gallbladder: Absent gallbladder with a peripherally calcified stone measuring 1.1 cm in the residual cystic duct. Biliary ducts: Nondilated. Pancreas: Normal. Spleen: Normal size. Adrenal Glands: Low-density 2.4 cm mass arising from the body of the right adrenal gland. New compared to the prior study. No left adrenal mass. Stomach and Bowel: Stomach, small bowel loops, and colon are unremarkable. The appendix was not seen. There are several surgical clips in the right lower quadrant, potentially from appendectomy. Peritoneum: No abnormal intraperitoneal fluid. No free air. Ventral Wall: No hernia. Abdominal Nodes: No enlarged retroperitoneal or mesenteric lymph nodes. Vessels: Aorta and inferior vena cava are normal in size. 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 Heavy abdominal aortic atherosclerotic calcification. PELVIS: Pelvic Organs: The prostate gland is surgically absent and there are surgical clips in the prostate bed. Pelvic Nodes: Unremarkable. Miscellaneous: No inguinal hernias are seen. Bones: Demineralization. Disc height loss L5-S1. No suspicious bone lesions. IMPRESSION: 1. Chronic nonobstructing intrarenal calculi in the left kidney. 2. 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 No significant change since 2013. 3. Slight interval enlargement in mildly complex or hyperdense cyst arising from the lateral right kidney, potentially proteinaceous. Solid mass is not excluded without IV contrast. 4. Decompressed urinary bladder without stone. 5. Development 2.4 cm right adrenal adenoma. Dictated by: Loulou Solo M.D. on 02/25/2022 at 8:11 Approved by: Loulou Solo M.D. on 02/25/2022 at 8:31
[2022-02-25 08:53] LABS: Appearance Urine UA TURBID; Bilirubin Urine UA 1+ (NEGATIVE); Color Urine UA BROWN; Glucose Urine UA NEGATIVE (Negative); Ketones Urine UA TRACE (NEGATIVE); Leukocyte Esterase Urine UA 3+ (NEGATIVE); Nitrite Urine UA NEGATIVE (Negative); Occult Blood Urine UA 3+ (Negative); Protein Urine UA 3+ (Negative); Urobilinogen Urine UA 0.2 E.U./dL (0.2)
[2022-02-25 08:56] LABS: Ictotest Urine Negative (Negative)
[2022-02-25 08:57] LABS: RBC Urine >100/HPF (0-5/HPF); Squamous Epithelial Cell Urine 1-5 /HPF (0-5/HPF); WBC Urine >100/HPF (0-5/HPF)
[2022-02-25 08:58] LABS: Bacteria Urine None Seen; Culture Indicated Urine Specimen Cultured
[2022-02-25 10:41] VITALS: BP 178/68; RESP 20; O2SAT 97
== END 2022-02-25 10:41 | disposition home or self-care (01) ==
PROVIDERS: Emergency Provider Emergency Medicine; PCP Internal Medicine
DX: N13.5 Crossing vessel and stricture of ureter without hydronephrosis (principal); N28.1 Cyst of kidney, acquired; D30.01 Benign neoplasm of right kidney; N39.0 Urinary tract infection, site not specified
CPT/HCPCS: 36415; 74176; 80053; 81001; 83690; 85025; 85610; 87077; 87086; 87186; 99283; 99284

== ENCOUNTER → 2022-03-21 11:02 | Outpatient (CLI) | payer MEDICARE, SELFPAY ==
--- NOTE | 2022-03-21 | DI.RAD.S_ITS ---
PROCEDURE: XR ABDOMEN 1V INDICATIONS: urinary symptom or sign TECHNIQUE: One view of the abdomen acquired. COMPARISON: [facility], CT, CT KIDNEY URETER BLADDER (KUB), 02/25/2022, 8:59. FINDINGS: Surgical changes and devices: Right flank and lower pelvic surgical clips. Bowel: Nonspecific bowel gas pattern. There is mild gaseous distention of multiple bowel loops throughout the abdomen and short air-fluid level seen on the upright examination. No pneumatosis or bowel wall thickening. No new mature tinea. Soft tissues: No suspicious abdominal calcifications. Visualized solid organ contours appear normal in size. Bones: No suspicious bony lesions. IMPRESSION: Nonspecific bowel gas pattern. If patient's symptoms persist, recommend repeat imaging or CT. Dictated by: Jay BORRERO Interpreted: Tejal Govea MD on 03/21/2022 at 13:37 Approved by: Tejal Govea M.D. on 03/21/2022 at 15:38
== END ==
PROVIDERS: PCP Internal Medicine; Referring Provider Internal Medicine; Visit Provider Internal Medicine
DX: R39.9 Unspecified symptoms and signs involving the genitourinary system (principal)
CPT/HCPCS: 74018

== ENCOUNTER → 2022-03-24 10:29 | Outpatient (CLI) | payer MEDICARE, SELFPAY ==
--- NOTE | 2022-03-24 | DI.NM.S_ITS ---
PROCEDURE: NM RENAL FUNCTION W LASIX RADIOPHARMACEUTICAL: 10.2 mCi Tc-99m MAG3 IV and 40 mg furosemide IV. INDICATIONS: URINARY SYMPTOMS TECHNIQUE: The patient was hydrated orally before the examination was begun. After intravenous administration of Tc-99m MAG3, posterior abdominal radionuclide angiogram and sequential (1 minute each frame) renal images were obtained. A time-activity curve for each kidney was generated and analyzed. To evaluate for obstruction, the patient was given 40 mg furosemide via slow intravenous injection after the start of the examination. Sequential images were obtained for up to an additional 20 minutes. COMPARISON: [facility], CT, KUB - CT (PNL), 04/05/2014, 8:41. [facility], CT, CT KIDNEY URETER BLADDER (KUB), 02/25/2022, 8:59. FINDINGS: Perfusion: There is normal vascular flow to both kidneys. Morphology: Both kidneys are normal in size. There is decreased cortical uptake in the superior pole of the right kidney, correlating with a cyst seen on the comparison CT. No dilated collecting systems are seen. The ureters and bladder fill with tracer, and appear normal. Function: Both kidneys demonstrate borderline delayed cortical tracer uptake, with pxjx-[id number]-uwee activity at 5-6 minutes. The right kidney contributes 52.1% of total renal function. The left kidney contributes 47.9% of total renal function. Lasix stimulation: After diuretic administration, there is prompt clearance of tracer activity from the renal collecting systems in both kidneys. The half-time of emptying of tracer activity from the right pelvicaliceal system is 12 minutes. The half-time of emptying from the left pelvicaliceal system is 13 minutes. Normal emptying half-times are less than 10 minutes; borderline ranges are from 10 to 20 minutes. IMPRESSION: 1. Borderline decreased renal functions bilaterally with slightly delayed [id number]-[id number] activity. 2. Right kidney contributes 52.1% of total renal function. Left kidney contributes 47.9% of total renal function. 3. No evidence for high-grade urinary obstruction. 4. Reduced cortical activity in the superior pole of the right kidney correlates with a prominent cyst. Dictated by: Isis Miner M.D. on 03/25/2022 at 19:45 Approved by: Isis Miner M.D. on 03/26/2022 at 10:51
== END ==
PROVIDERS: PCP Internal Medicine; Referring Provider Internal Medicine; Visit Provider Internal Medicine
DX: R39.9 Unspecified symptoms and signs involving the genitourinary system (principal)
CPT/HCPCS: 78708; A9562

== ENCOUNTER 2022-05-29 09:57 | Emergency (ER) | payer MEDICARE, SELFPAY ==
[2022-05-29] VITALS (56 sets, daily range): BP systolic 176–239; BP diastolic 81–149; PULSE 62–119; RESP 13–29; TEMP 36; O2SAT 99; BMI 31.5
--- NOTE | 2022-05-29 10:13 | DI.RAD.S_ITS ---
PROCEDURE: XR CHEST 1V INDICATIONS: chest pain TECHNIQUE: One view of the chest was acquired. COMPARISON: [facility], , CHEST 2 VIEW, 05/22/2016, 11:58. FINDINGS: Surgical changes and devices: None. Lungs and pleura: Diffuse chronic interstitial prominence. Question minimal superimposed interstitial pulmonary edema. No pleural effusions or pneumothorax. Mediastinum: Mediastinal contours appear normal. Moderate to severe cardiomegaly, increased. Bones and chest wall: No suspicious bony lesions. Overlying soft tissues appear unremarkable. IMPRESSION: 1. Increased cardiomegaly, moderate to severe. 2. Chronic diffuse interstitial prominence. Question minimal superimposed interstitial pulmonary edema. Dictated by: Juanpablo George M.D. on 05/29/2022 at 10:41 Approved by: Juanpablo George M.D. on 05/29/2022 at 10:42
[2022-05-29 10:32] LABS: Add Manual Diff / Slide Review NO; Basophils Absolute Auto 100 /uL (0-100); Basophils Percent Auto 1.3 % (0-2); Eosinophils Absolute Auto 200 /uL (0-450); Hematocrit 42.4 % (41-53); Hemoglobin 13.9 g/dL (13.5-17.5); INR 2.1 (0.9-1.3); Lymphocytes Absolute Auto 1100 /uL (1100-4500); Lymphocytes Percent Auto 17.9 % (25-40); Mean Corpuscular HGB Conc 32.8 % (30-36); Mean Corpuscular Hemoglobin 29.4 PG (26-34); Mean Corpuscular Volume 89.7 fL (80-100); Monocytes Absolute Auto 500 /uL (0-900); Monocytes Percent Auto 8.4 % (3-14); Neutrophils Absolute Auto 4100 /uL (1500-7000); Neutrophils Percent Auto 69.4 % (50-75); Platelet Count 122 X10^3/uL (150-400); Prothrombin Time 24.6 SECONDS (10.1-12.7); Red Blood Cell Count 4.73 X10^6/uL (4.5-5.9); Red Cell Distribution Width 15.1 % (11.6-14.8); White Blood Cell Count 5.9 X10^3/uL (4.5-11.0)
[2022-05-29 10:35] LABS: PTT Partial Thromboplastin Tim 42 SECONDS (26-36)
[2022-05-29 10:39] LABS: Alanine Aminotransferase 36 IU/L (<50); Albumin 3.9 g/dL (3.5-5.0); Albumin Globulin Ratio 1.1 (1.0-2.8); Alkaline Phosphatase 89 U/L (38-126); Aspartate Aminotransferase 27 IU/L (17-59); BUN Creatinine Ratio 24.3 (6-22); Bilirubin Total 0.8 mg/dL (0.2-1.3); Blood Urea Nitrogen 36 mg/dL (9-20); Calcium 8.6 mg/dL (8.4-10.2); Carbon Dioxide 29 mmol/L (22-32); Chloride 104 mmol/L (98-107); Creatine Kinase 33 U/L (55-170); Estimated Glomerular Filt Rate 46 mL/min (>60); Globulin 3.4 g/dL (1.7-4.1); Glucose 105 mg/dL (80-110); HEMOLYSIS < 15 (0-50); Lipase 413 U/L (23-300); Potassium 3.9 mmol/L (3.4-5.1); Sodium 140 mmol/L (137-145); Total Protein 7.3 g/dL (6.3-8.2)
[2022-05-29 10:50] LABS: Troponin I 0.018 ng/mL (0.01-0.034)
--- NOTE | 2022-05-29 12:19 | ED.GENADULT ---
HPI - General Adult General Chief complaint: Hypertension Stated complaint: high BP 212 over something Time Seen by Provider: 05/29/22 12:13 Source: patient Mode of arrival: Ambulatory Limitations: no limitations History of Present Illness HPI narrative: This is an 86-year-old male with history of atrial fibrillation on flecainide, CHF, hypertension, dyslipidemia, asthma anticoagulated on warfarin. Patient presents today with elevated blood pressure. He states yesterday he was at the office for routine visit was found have a systolic in the 170 range he states his typical is about 130 systolic. Patient states that he rechecked his blood pressure today 1 was 200 range so he presents. States he does not have any current symptoms he denies headache, no vision changes, no numbness tingling or weakness, no speech changes, no chest pain or shortness of breath. No nausea or vomiting. He is had some mild constipation but stooling regularly. No black or bloody stools. No urinary symptoms. No abdominal back or flank pain. Not had any recent medication changes. He appears to be taking carvedilol, flecainide, fluticasone/Advair, losartan, simvastatin, allopurinol, Spiriva, torsemide 40 mg daily and warfarin. Patient states had no prior cardiac surgeries, no stents no pacemakers or interventions, cholecystectomy and appendectomy. Patient states he fells with Dr. Short the [facility] [place]. He does not currently follow with cardiology. Quit tobacco 2014, occasional alcohol, no illicit. He does note that he had to put his dog for 14 years down 2 days ago and is admittedly stressed about this. Related Data Home Medications Medication Instructions Recorded Confirmed flecainide 50 mg tablet 50 mg PO Q12H 12/07/18 04/16/22 fluticasone propion-salmeterol inhalation 12/07/18 04/16/22 [Advair Diskus] multivitamin-ferrous 1 tab PO DAILY 12/07/18 04/16/22 fumarate-folic acid 18 mg-400 mcg tablet (Centrum) simvastatin 20 mg tablet 20 mg PO BEDTIME 12/07/18 04/16/22 tiotropium bromide [Spiriva inhalation 12/07/18 04/16/22 Respimat] warfarin 2.5 mg tablet 2.5 mg PO DAILY 12/07/18 04/16/22 allopurinol 100 mg tablet 100 mg PO DAILY 04/16/22 04/16/22 carvedilol phosphate 20 mg 25 mg PO BID 04/16/22 04/16/22 capsule,[id number] multiphase losartan 50 mg tablet 50 mg PO BID 04/16/22 04/16/22 torsemide 40 mg tablet 40 mg PO DAILY 04/16/22 04/16/22 Previous Rx's Medication Instructions Recorded triamcinolone acetonide 0.1 % 1 applic topical TID #80 grams 03/14/20 topical cream carvedilol 12.5 mg tablet (Coreg) 12.5 mg PO BID #60 tabs 05/29/22 nifedipine 60 mg tablet,extended 60 mg PO DAILY #20 tabs 05/29/22 release 24 hr Allergies Allergy/AdvReac Type Severity Reaction Status Date / Time No Known Drug Allergies Allergy Verified 05/29/22 10:04 Review of Systems Review of Systems ROS Unobtainable: All systems reviewed & are unremarkable except as noted in HPI and below Patient History Medical History Hematuria History of high blood pressure History of kidney stones History of malignant neoplasm of prostate History of UTI Hx of congestive heart failure Hx of gout Hydronephrosis, left Left nephrolithiasis Shingles Urinary incontinence with continuous leakage Surgical History History of prostate surgery Hx of appendectomy Hx of cholecystectomy Social History marital status: number of children: 0 Smoking Status: Former smoker alcohol intake: current caffeine: Yes Smoking Status: Former smoker alcohol intake frequency: holidays/special occasions only Substance Use Type: does not use Exam Narrative Exam Narrative: GENERAL: Alert and oriented x three, male in mild distress. HEENT: Head normocephalic, atraumatic, EOMI, pupils reactive, face symmetric, moist mucous membranes NECK: Supple, full range of motion CARDIOVASCULAR: Regular rate and rhythm without murmurs, rubs or gallops. No JVD. RESPIRATORY: Breath sounds equal bilaterally, no wheezes rales or rhonchi. No tachypnea, no accessory muscle use. Patient is able to lay flat without issue. ABDOMEN: Soft, nontender. Normoactive bowel sounds all 4 quadrants. No guarding or rebound, rigidity, no mass, no pulsatile mass or abdominal bruit. : No CVA tenderness EXTREMITIES: Normal range of motion, no clubbing, bilateral pedal edema, 1+ pretibial edema bilaterally. Neurovascularly intact NEUROLOGICAL: Cranial nerves II through XII grossly intact. Moving all extremities SKIN: Warm, dry, no petechiae, no rashes or lesions. Initial Vital Signs Initial Vital Signs: Vital Signs Temperature 96.8 F L 05/29/22 10:04 Pulse Rate 62 05/29/22 10:04 Respiratory Rate 15 05/29/22 10:04 Blood Pressure 200/96 H 05/29/22 10:04 Pulse Oximetry 99 05/29/22 10:04 Oxygen Delivery Method 05/29/22 10:04 Course Orders Ordered: ED Orders 05/29/22 10:05 BNP [NT-proBNP (BNP-Adult 18+)] Stat 05/29/22 10:13 XR chest 1V Stat 05/29/22 10:15 Complete Blood Count AUTO DIFF Stat Comprehensive Metabolic Panel Stat Lipase Stat Magnesium Stat Partial Thromboplastin Time Stat Prothrombin Time INR Stat Troponin & CK Cardiac Panel Stat EKG-12 Lead Stat 05/29/22 13:45 Trop I [Troponin I] Stat Discontinued Medications Furosemide (Furosemide 40 Mg/4 Ml Vial) 40 mg IV NOW ONE Stop: 05/29/22 13:29 Last Admin: 05/29/22 13:55 Dose: 40 mg Documented By: RB Hydralazine HCl (Hydralazine 10 Mg Tablet) 10 mg PO NOW ONE Stop: 05/29/22 16:32 Last Admin: 05/29/22 17:00 Dose: 10 mg Documented By: RB Nifedipine (Nifedipine 30 Mg Tab Er) 60 mg PO DAILY ONE Stop: 05/29/22 15:25 Last Admin: 05/29/22 15:44 Dose: 60 mg Documented By: RB Vital Signs Vital signs: Vital Signs - 8 hr 05/29/22 12:55 05/29/22 12:56 05/29/22 12:56 Pulse Rate 66 66 Respiratory Rate 19 16 Blood Pressure 222/106 H 05/29/22 13:00 05/29/22 13:00 05/29/22 13:30 Pulse Rate 64 Respiratory Rate 13 Blood Pressure 201/98 H 204/149 H 05/29/22 13:30 05/29/22 14:00 05/29/22 14:01 Pulse Rate 63 65 Respiratory Rate 19 19 Blood Pressure 227/100 H 05/29/22 14:01 05/29/22 14:15 05/29/22 14:20 Pulse Rate 66 67 Respiratory Rate 17 23 Blood Pressure 216/101 H 05/29/22 14:20 05/29/22 14:30 05/29/22 14:30 Pulse Rate 66 68 Respiratory Rate 15 Blood Pressure 204/97 H 05/29/22 14:40 05/29/22 14:40 05/29/22 14:53 Pulse Rate 73 Respiratory Rate 23 21 Blood Pressure 222/130 H 05/29/22 14:54 05/29/22 14:54 05/29/22 15:00 Pulse Rate 75 Respiratory Rate 21 Blood Pressure 205/106 H 204/102 H 05/29/22 15:00 05/29/22 15:05 05/29/22 15:10 Pulse Rate 67 67 Respiratory Rate 16 23 Blood Pressure 227/98 H 05/29/22 15:10 05/29/22 15:15 05/29/22 15:20 Pulse Rate 68 69 70 Respiratory Rate 17 22 Blood Pressure 05/29/22 15:21 05/29/22 15:21 05/29/22 15:25 Pulse Rate 71 69 Respiratory Rate 23 18 Blood Pressure 227/97 H 05/29/22 15:30 05/29/22 15:30 05/29/22 15:35 Pulse Rate 69 Respiratory Rate 25 H 29 H Blood Pressure 225/96 H 05/29/22 15:40 05/29/22 15:40 05/29/22 15:45 Pulse Rate 72 69 Respiratory Rate 24 20 Blood Pressure 239/109 H 05/29/22 15:46 05/29/22 15:46 05/29/22 15:50 Pulse Rate 69 Respiratory Rate 17 Blood Pressure 221/95 H 209/98 H 05/29/22 15:50 05/29/22 15:54 05/29/22 15:55 Pulse Rate 67 69 Respiratory Rate 17 23 Blood Pressure 216/98 H 05/29/22 15:55 05/29/22 16:00 05/29/22 16:01 Pulse Rate 67 68 Respiratory Rate 18 15 Blood Pressure 206/95 H 05/29/22 16:01 05/29/22 16:05 05/29/22 16:06 Pulse Rate 69 77 Respiratory Rate 19 21 Blood Pressure 191/81 H 05/29/22 16:06 05/29/22 16:10 05/29/22 16:10 Pulse Rate 68 70 Respiratory Rate 19 18 Blood Pressure 191/81 H 05/29/22 16:15 05/29/22 16:15 05/29/22 16:20 Pulse Rate 69 Respiratory Rate 19 Blood Pressure 209/94 H 221/90 H 05/29/22 16:20 05/29/22 16:25 05/29/22 16:26 Pulse Rate 71 68 Respiratory Rate 16 18 Blood Pressure 224/98 H 05/29/22 16:26 05/29/22 16:30 05/29/22 16:31 Pulse Rate 70 63 67 Respiratory Rate 18 22 21 Blood Pressure 05/29/22 16:31 05/29/22 17:00 05/29/22 16:35 Pulse Rate 78 66 Respiratory Rate 20 Blood Pressure 213/96 H 198/87 H 05/29/22 16:36 05/29/22 16:36 05/29/22 16:40 Pulse Rate 69 68 Respiratory Rate 21 21 Blood Pressure 223/90 H 05/29/22 16:41 05/29/22 16:41 05/29/22 16:45 Pulse Rate 67 Respiratory Rate 20 Blood Pressure 208/91 H 191/83 H 05/29/22 16:45 05/29/22 16:50 05/29/22 16:50 Pulse Rate 68 69 Respiratory Rate 20 23 Blood Pressure 205/88 H 05/29/22 16:55 05/29/22 16:56 05/29/22 16:56 Pulse Rate 66 64 Respiratory Rate 21 20 Blood Pressure 197/87 H 05/29/22 17:01 05/29/22 17:01 05/29/22 17:05 Pulse Rate 72 67 Respiratory Rate 22 Blood Pressure 176/149 H 05/29/22 17:06 05/29/22 17:06 05/29/22 17:10 Pulse Rate 68 119 H Respiratory Rate 20 Blood Pressure 219/98 H 05/29/22 17:15 05/29/22 17:17 05/29/22 17:17 Pulse Rate 71 70 Respiratory Rate 22 23 Blood Pressure 208/108 H 05/29/22 17:20 05/29/22 17:20 05/29/22 17:25 Pulse Rate 66 Respiratory Rate 17 Blood Pressure 198/104 H 184/98 H 05/29/22 17:25 Pulse Rate 68 Respiratory Rate Blood Pressure Medical Decision Making Lab Data 05/29/22 10:15 05/29/22 10:15 Labs: Lab Results 05/29/22 05/29/22 05/29/22 Range/Units 10:05 10:15 10:15 WBC 5.9 (4.5-11.0) X10^3/uL RBC 4.73 (4.5-5.9) X10^6/uL Hgb 13.9 (13.5-17.5) g/dL Hct 42.4 (41-53) % MCV 89.7 (80-100) fL MCH 29.4 (26-34) PG MCHC 32.8 (30-36) % RDW 15.1 H (11.6-14.8) % Plt Count 122 L (150-400) X10^3/uL Neut % (Auto) 69.4 (50-75) % Lymph % (Auto) 17.9 L (25-40) % Tillman % (Auto) 8.4 (3-14) % Eos % (Auto) 3.0 (2-4) % Baso % (Auto) 1.3 (0-2) % Neut # (Auto) 4100 (1837-0707) /uL Lymph # (Auto) 1100 (8004-3338) /uL Tillman # (Auto) 500 (0-900) /uL Eos # (Auto) 200 (0-450) /uL Baso # (Auto) 100 (0-100) /uL PT 24.6 H (10.1-12.7) SECONDS INR 2.1 H (0.9-1.3) APTT 42 H (26-36) SECONDS Sodium (137-145) mmol/L Potassium (3.4-5.1) mmol/L Chloride (98-107) mmol/L Carbon Dioxide (22-32) mmol/L BUN (9-20) mg/dL Creatinine (0.66-1.25) mg/dL Estimated GFR (>60) mL/min BUN/Creatinine Ratio (6-22) Glucose (80-110) mg/dL Calcium (8.4-10.2) mg/dL Magnesium (1.6-2.3) mg/dL Total Bilirubin (0.2-1.3) mg/dL AST (17-59) IU/L ALT (<50) IU/L Alkaline Phosphatase (38-126) U/L Total Creatine Kinase (55-170) U/L CK-MB (CK-2) CK-MB (CK-2) Rel Index Troponin I (0.01-0.034) ng/mL NT-Pro-B Natriuret Pep 3160 H (<450) pg/mL Total Protein (6.3-8.2) g/dL Albumin (3.5-5.0) g/dL Globulin (1.7-4.1) g/dL Albumin/Globulin Ratio (1.0-2.8) Lipase (23-300) U/L 05/29/22 05/29/22 Range/Units 10:15 13:45 WBC (4.5-11.0) X10^3/uL RBC (4.5-5.9) X10^6/uL Hgb (13.5-17.5) g/dL Hct (41-53) % MCV (80-100) fL MCH (26-34) PG MCHC (30-36) % RDW (11.6-14.8) % Plt Count (150-400) X10^3/uL Neut % (Auto) (50-75) % Lymph % (Auto) (25-40) % Tillman % (Auto) (3-14) % Eos % (Auto) (2-4) % Baso % (Auto) (0-2) % Neut # (Auto) (3257-9349) /uL Lymph # (Auto) (4628-5049) /uL Tillman # (Auto) (0-900) /uL Eos # (Auto) (0-450) /uL Baso # (Auto) (0-100) /uL PT (10.1-12.7) SECONDS INR (0.9-1.3) APTT (26-36) SECONDS Sodium 140 (137-145) mmol/L Potassium 3.9 (3.4-5.1) mmol/L Chloride 104 (98-107) mmol/L Carbon Dioxide 29 (22-32) mmol/L BUN 36 H (9-20) mg/dL Creatinine 1.48 H (0.66-1.25) mg/dL Estimated GFR 46 L (>60) mL/min BUN/Creatinine Ratio 24.3 H (6-22) Glucose 105 (80-110) mg/dL Calcium 8.6 (8.4-10.2) mg/dL Magnesium 2.0 (1.6-2.3) mg/dL Total Bilirubin 0.8 (0.2-1.3) mg/dL AST 27 (17-59) IU/L ALT 36 (<50) IU/L Alkaline Phosphatase 89 (38-126) U/L Total Creatine Kinase 33 L (55-170) U/L CK-MB (CK-2) TNP CK-MB (CK-2) Rel Index TNP Troponin I 0.018 0.013 (0.01-0.034) ng/mL NT-Pro-B Natriuret Pep (<450) pg/mL Total Protein 7.3 (6.3-8.2) g/dL Albumin 3.9 (3.5-5.0) g/dL Globulin 3.4 (1.7-4.1) g/dL Albumin/Globulin Ratio 1.1 (1.0-2.8) Lipase 413 H (23-300) U/L Imaging Data Chest x-ray: Radiologist's Impression: Close Chest X-Ray (Signed) ArielLogan - 05/29/22 Renal Scan Nuclear Medicine (Signed) Isis Miner - 03/24/22 Abdomen X-Ray (Signed) Tejal Govea - 03/21/22 Abdomen/Pelvis CT (Signed) Loulou Solo - 02/25/22 Echocardiogram Ultrasound (Signed) Mike Barlow - 03/28/[address] (Signed) Abimael Kelley - 03/02/[address] [address] XRay Report Signed Patient: Kodi Paredes MR#: [id number] : 1935 Acct:[id number] Age/Sex: 86 / M Date of Service: 05/29/22 Loc: ED Accession Number: [id number] ?? Procedure: XR chest 1V Ordering Provider: Mercedes Chavez D.O. PROCEDURE:? XR CHEST 1V ? INDICATIONS:? chest pain ? TECHNIQUE:? One view of the chest was acquired.? ? COMPARISON:? [facility], , CHEST 2 VIEW, 05/22/2016, 11:58. ? FINDINGS:? ? Surgical changes and devices:? None.? ? Lungs and pleura:? Diffuse chronic interstitial prominence.? Question minimal superimposed interstitial pulmonary edema.? No pleural effusions or pneumothorax.? ? Mediastinum:? Mediastinal contours appear normal.? Moderate to severe cardiomegaly, increased. ? Bones and chest wall:? No suspicious bony lesions.? Overlying soft tissues appear unremarkable.? ? IMPRESSION:? ? 1. Increased cardiomegaly, moderate to severe. ? 2. Chronic diffuse interstitial prominence.? Question minimal superimposed interstitial pulmonary edema. ? ? Dictated by: Juanpablo George M.D. on 05/29/2022 at 10:41 ? ? Approved by: Juanpablo George M.D. on 05/29/2022 at 10:42?? ECG Data Attestation: I personally reviewed and interpreted this ECG as follows: Prior ECG tracings: not available for review Interpretation: AFib with slow response, rate of 54, QRS of 144 QTC of 440. No acute ST elevation patient has right bundle. No priors for comparison. [facility] Narrative Medical decision making narrative: This is an 86-year-old male with hypertension which is currently asymptomatic, patient does not have prior EKGs for comparison but appears to have right bundle-branch block T-wave abnormalities but no priors for comparison he is currently from the 200 range during his stay diastolic has been 96-106, patient appears to have been elevated to 170s 180s in February of 2022. Patient does have some stressors he recently put his dog down 48 hours ago, his renal function appears at baseline with a creatinine 1.4, platelets are 122 but otherwise normal CBC INR is 2.1 and he is on warfarin. Troponin was 0.018 lipase is 4.13 but asymptomatic chest x-ray shows [id number] cardiomegaly with little bit of pulmonary edema. Patient has known CHF and is not having increased symptoms, has not had any recent medication changes. Discussed with patient will give some Lasix, re-evaluate additional blood pressure medication. If patient continues to be asymptomatic will likely adjust his medications have him follow up for outpatient echo. Patient is noted to have renal nuclear med scan with borderline decreased renal functions bilaterally slightly delayed this was on 03/24/2022. Patient also had echo in March of 2019 which showed normal EF of 60-65% mildly enlarged right ventricular size with moderately reduced function left atrium was severely dilated and right atrium was moderate to severely dilated with moderate aortic stenosis, moderate tricuspid regurg and showed in comparison 2016 aortic stenosis had progressed from nzuv-sk-rhunlfaw with pulmonary hypertension present unsteady in 2019. Spoke with Dr. Plasencia, cardiology she recommends continuing his Coreg but decreasing the amount to 12.5 mg b.i.d. to allow his heart rate to improve, losartan 50 mg b.i.d. to be continued and adding nifedipine 60 mg once daily. She does agree that patient needs echo repeated. Patient is felt stable at this time for discharge home and outpatient follow-up but with return precautions. Patient had improvement with nifedipine, was given 1 additional dose of oral antihypertensive and is coming down to the 180 range. Discussed with patient to adjust his medications. Return precautions all questions answered. Patient expresses understanding, discussed return precautions. Discharge Plan Departure Patient Disposition: Home Clinical Impression: CHF (congestive heart failure), Hypertension Instructions: DI for High Blood Pressure Activity Restrictions/Additional Instructions: Please follow-up with Cardiology, referral is included below. You do need to follow-up for repeat echo, this can be ordered by your primary care physician to evaluate your aortic stenosis. It is recommended that you decrease your carvedilol to 12.5 mg twice daily so your heart rate is not as slow. Double check with your pharmacist to verify that you are currently taking 25 mg twice daily before you adjust her medication Continue your losartan at 50 mg twice daily. Start nifedipine 60 mg once daily. Prescription [facility]. Please return for severe headaches, new chest pain, shortness of breath, lightheadedness or passing out, new swelling of extremities, nausea vomiting or other new or concerning changes. Prescriptions: New nifedipine 60 mg tablet extended release 24hr 60 mg PO DAILY Qty: 20 0RF carvedilol [Coreg] 12.5 mg tablet 12.5 mg PO BID Qty: 60 0RF Rx Instructions: must administer with a meal/food No Action warfarin 2.5 mg tablet 2.5 mg PO DAILY simvastatin 20 mg tablet 20 mg PO BEDTIME flecainide 50 mg tablet 50 mg PO Q12H Centrum 18-400 mg-mcg tablet 1 tab PO DAILY fluticasone propion-salmeterol INHALATION tiotropium bromide INHALATION losartan 50 mg tablet 50 mg PO BID carvedilol phosphate 20 mg capsule, ER multiphase 24 hr 25 mg PO BID triamcinolone acetonide 0.1 % cream 1 applic TOP TID Qty: 80 0RF allopurinol 100 mg tablet 100 mg PO DAILY torsemide 40 mg tablet 40 mg PO DAILY Referrals: Hunter Nino MD [Primary Care Provider] - Jessica Pond DO [Physician] - Stand Alone Forms: Patient Portal/API
[2022-05-29 12:49] LABS: NT-proBNP (BNP-Adult 18+) 3160 pg/mL (<450)
[2022-05-29] MEDS: FUROSEMIDE 40 MG/4 ML VIAL IV (13:55)
[2022-05-29 14:25] LABS: Troponin I 0.013 ng/mL (0.01-0.034)
[2022-05-29] MEDS: NIFEdipine 30 MG TAB ER 60 MG PO (15:44)
[2022-05-29] MEDS: HYDRALAZINE 10 MG TABLET PO (17:00)
== END 2022-05-29 17:33 | disposition home or self-care (01) ==
PROVIDERS: Emergency Provider Emergency Medicine; PCP Internal Medicine
DX: I50.9 Heart failure, unspecified (principal); I10 Essential (primary) hypertension; R07.9 Chest pain, unspecified; Z79.01 Long term (current) use of anticoagulants
CPT/HCPCS: 36415; 71045; 80053; 82550; 83690; 83735; 83880; 84484; 85025; 85610; 85730; 93005; 96374; 99284; J1940

== ENCOUNTER → 2022-06-16 10:28 | Outpatient (CLI) | payer MEDICARE, SELFPAY | PROVIDERS: PCP Internal Medicine; Referring Provider Internal Medicine Cardiovascular Disease; Visit Provider Internal Medicine Cardiovascular Disease | DX: I10 Essential (primary) hypertension (principal); D35.01 Benign neoplasm of right adrenal gland | CPT/HCPCS: 36415; 82088; 84443 ==

== ENCOUNTER → 2022-07-14 10:21 | Outpatient (CLI) | payer MEDICARE, SELFPAY ==
--- NOTE | 2022-07-14 | DI.ECHO.S_ITS ---
[facility] +---------+ : : [address] : [place] [address] : : : : [id number] : : : : Phone: [phone]---------+ Echocardiogram Report + + :Name: RYAN CANELA Study Date: 07/14/2022 Height: 70 in : :[facility] ReadingLocation: Weight: 220 lb : : Gender: Male BSA: 2.2 m2 : :: 1935 Age: 87 yrs BP: 141/74 mmHg: :Reason For Study: AORTIC STENOSIS : :Ordering Physician: SIRISHA, : :HUE Performed By: SERGE BARAJAS : :Referring: HUE GRIMM : + + Interpretation Summary The patient was in atrial fibrillation with controlled ventricular rate during the exam. Previously sinus. The patient had a bundle branch block rhythm during the exam. The left ventricle is normal in size. There is mild concentric left ventricular hypertrophy. The ejection fraction is estimated to be 60-65%. The interventricular septum is flattened, consistent with a right ventricular pressure/volume condition. The right ventricle is mildly dilated. Right ventricular systolic function is moderately reduced. No significant change in RV function. The aortic valve is heavily calcified. The aortic valve is trileaflet. There is severely reduced leaflet mobility. The peak aortic velocity is 4 m/sec. The aortic valve mean gradient is 37 mmHg. The peak aortic velocity on the previous exam was 3 m/sec. The calculated aortic valve area is 0.70 cm2. There is severe aortic stenosis. Compared to the prior echo study, there has been an increase in the severity of aortic stenosis. There is moderate tricuspid regurgitation. The right ventricular systolic pressure is estimated to be at least 63 mmHg based on an estimated right atrial pressure of 8 mm Hg. Compared to the prior echo exam, there has been no change in TR severity. Compared to the prior echo exam, there has been no change in the severity of pulmonary hypertension. Procedure: A two-dimensional transthoracic echocardiogram with color flow and Doppler was performed. The study quality was technically adequate. Comparison is made with the echocardiogram of 03/28/2019. The heart rate ranged between 50-74 bpm during the study. The patient was in atrial fibrillation with controlled ventricular rate during the exam. The patient had a bundle branch block rhythm during the exam. Left Ventricle: The left ventricle is normal in size. Left ventricular wall thickness is mildly increased. There is mild concentric left ventricular hypertrophy. There is no thrombus. Left ventricular systolic function is normal. The ejection fraction is estimated to be 60-65%. The interventricular septum is flattened, consistent with a right ventricular pressure/volume condition. Diastolic function could not be accurately assessed due to atrial fibrillation. Right Ventricle: The right ventricle is mildly dilated. There has been no significant change since the previous study. Right ventricular systolic function is moderately reduced. There has been no significant change since the previous study. Atria: The left atrium is severely dilated. There has been no significant change since the previous study. The right atrium is severely dilated. There has been no significant change since the previous study. There is no Doppler evidence for an interatrial shunt. Mitral Valve: The mitral valve leaflets appear mildly thickened, but open well. There is mild mitral annular calcification. There is mild mitral regurgitation. Aortic Valve: The aortic valve is heavily calcified. The aortic valve is trileaflet. There is severely reduced leaflet mobility. There is severe aortic stenosis. The aortic valve area indexed to the BSA is 0.32 . The peak aortic velocity is 4 m/sec. The peak aortic velocity on the previous exam was 3 m/sec. The aortic valve mean gradient is 37 mmHg. Dimensionless index is 0.24. The calculated aortic valve area is 0.70 cm2. Compared to the prior echo study, there has been an increase in the severity of aortic stenosis. No aortic regurgitation is present. Tricuspid Valve: The tricuspid valve is normal. There is moderate tricuspid regurgitation. The right ventricular systolic pressure is estimated to be at least 63 mmHg based on an estimated right atrial pressure of 8 mm Hg. Compared to the prior echo exam, there has been no change in TR severity. Compared to the prior echo exam, there has been no change in the severity of pulmonary hypertension. Pulmonic Valve: The pulmonic valve is not well seen, but is grossly normal. There is mild pulmonic regurgitation. Great Vessels: The aortic root is normal size. The ascending aorta is normal in size. The IVC is dilated (diameter is greater than 2.1 cm) yet it collapses greater than 50% with a sniff. This suggests a right atrial pressure of 8 mm Hg. Pericardium/ Pleura There is no pericardial effusion. There is no pleural effusion. MMode/2D Measurements & Calculations LVIDd: 5.3 cm LVOT diam: 1.9 cm LVIDs: 2.9 cm Ao root diam: 3.0 cm FS: 45.3 % asc Aorta Diam: 3.6 cm IVSd: 1.3 cm LVPWd: 1.2 cm LV mallory. diameter/BSA (cm/m^2): 2.4 LV sys. diameter/BSA (cm/m^2): 1.3 LA A2 area: 30.5 cm2 RA long axis: 7.1 cm LA A4 area: 31.2 cm2 LA length (vol): 7.1 cm LA vol: 113.6 ml LA vol index: 52.3 ml/m2 LVLs ap4: 6.4 cm LVLd ap2: 7.8 cm LVLs ap2: 6.0 cm TAPSE_phl: 1.1 cm Doppler Measurements & Calculations Ao V2 max: 402.0 cm/sec LVOT Max Laurent: 104.0 cm/sec Ao V2 mean: 293.0 cm/sec LV V1 max P.3 mmHg Ao max P.6 mmHg LV V1 VTI: 25.5 cm Ao mean P.0 mmHg BLANQUITA(I,D): 0.70 cm2 Ao V2 VTI: 103.0 cm BLANQUITA(V,D): 0.73 cm2 sev ratio: 0.25 BLANQUITA indexed to BSA (cm^2/m^2): 0.32 MV E max laurent: 150.0 cm/sec TR max laurent: 370.0 cm/sec Med Peak E' Laurent: 6.4 cm/sec TR max P.8 mmHg E/E' med: 23.5 PA V2 max: 129.0 cm/sec Lat Peak E' Laurent: 13.1 cm/sec PA V2 mean: 75.8 cm/sec E/E' lat: 11.5 PA mean P.0 mmHg E/e' average: 17.5 PA pr(Accel): 42.5 mmHg MV dec time: 0.19 sec MV P1/2t: 51.1 msec MVA(VTI): 2.2 cm2 MV V2 mean: 63.6 cm/sec MV P1/2t max laurent: 139.0 cm/sec MV mean P.0 mmHg MVA(P1/2t): 4.3 cm2 MV V2 VTI: 33.5 cm SV(LVOT): 72.3 ml AV VR_phl: 0.26 BLANQUITA(VTI)/BSA_phl: 0.34 MV P1/2t-pr_phl: 70.0 msec Reading Physician:05:09 PM
== END ==
PROVIDERS: PCP Internal Medicine; Referring Provider Internal Medicine Cardiovascular Disease; Visit Provider Internal Medicine Cardiovascular Disease
DX: I08.3 Combined rheumatic disorders of mitral, aortic and tricuspid valves (principal); I27.81 Cor pulmonale (chronic)
CPT/HCPCS: 93306

== ENCOUNTER → 2022-10-13 11:12 | Outpatient (CLI) | payer MEDICARE, SELFPAY ==
[2022-10-13 13:03] LABS: Add Manual Diff / Slide Review NO; Basophils Absolute Auto 100 /uL (0-100); Basophils Percent Auto 1.1 % (0-2); Eosinophils Absolute Auto 200 /uL (0-450); Eosinophils Percent Auto 3.4 % (2-4); Hematocrit 36.4 % (41-53); Hemoglobin 12.2 g/dL (13.5-17.5); Lymphocytes Absolute Auto 900 /uL (1100-4500); Lymphocytes Percent Auto 13.8 % (25-40); Mean Corpuscular HGB Conc 33.5 % (30-36); Mean Corpuscular Hemoglobin 30.1 PG (26-34); Mean Corpuscular Volume 89.8 fL (80-100); Monocytes Absolute Auto 500 /uL (0-900); Monocytes Percent Auto 8.8 % (3-14); Neutrophils Absolute Auto 4500 /uL (1500-7000); Neutrophils Percent Auto 72.9 % (50-75); Platelet Count 103 X10^3/uL (150-400); Red Blood Cell Count 4.06 X10^6/uL (4.5-5.9); Red Cell Distribution Width 14.6 % (11.6-14.8); White Blood Cell Count 6.2 X10^3/uL (4.5-11.0)
[2022-10-13 13:15] LABS: INR 1.5 (0.9-1.3); Prothrombin Time 17.8 SECONDS (10.1-12.7)
[2022-10-13 13:25] LABS: Blood Urea Nitrogen 27 mg/dL (9-20); Calcium 8.3 mg/dL (8.4-10.2); Carbon Dioxide 24 mmol/L (22-32); Chloride 106 mmol/L (98-107); Estimated Glomerular Filt Rate 39 mL/min (>60); Glucose 145 mg/dL (80-110); HEMOLYSIS 41 (0-50); Potassium 4.1 mmol/L (3.4-5.1); Sodium 138 mmol/L (137-145)
== END ==
PROVIDERS: PCP Internal Medicine; Referring Provider Internal Medicine Interventional Cardiology; Visit Provider Internal Medicine Interventional Cardiology
DX: I35.0 Nonrheumatic aortic (valve) stenosis (principal)
CPT/HCPCS: 36415; 80048; 85025; 85610

== ENCOUNTER → 2022-11-13 06:16 | Outpatient (CLI) | payer MEDICARE, SELFPAY ==
--- NOTE | 2022-11-13 06:19 | DI.ECHO.S_ITS ---
[facility] +---------+ : : [address] : [place] : : : : [phone] : : : : Phone: [phone] +---------+ Echocardiogram Report + + :Name: RYAN CANELA Study Date: 11/13/2022 Height: 70 in : :[facility] ReadingLocation: Weight: 220 lb : : Gender: Male BSA: 2.2 m2 : :: 1935 Age: 87 yrs BP: 147/67 mmHg: :Reason For Study: Aortic Valve Replacement : :Ordering Physician: MARCUS, : :MICHAEL Performed By: Debbie Zuñiga : :Referring: MICHAEL VELAZQUEZ : + + Interpretation Summary The ejection fraction is estimated to be 50-55%. Septal motion is consistent with conduction abnormality. The right ventricle is mild to moderately dilated. There is a pacemaker lead in the right ventricle. 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 Possible trivial perivalvular leak There is mild to moderate mitral regurgitation. There is moderate tricuspid regurgitation. Procedure: A two-dimensional transthoracic echocardiogram with color flow and Doppler was performed. The study quality was technically adequate. Comparison is made with the echocardiogram of 07/14/2022. The patient has a paced rhythm. Left Ventricle: The left ventricle is normal in size. The ejection fraction is estimated to be 50-55%. Septal motion is consistent with conduction abnormality. Diastolic function could not be accurately assessed due to paced rhythm. Right Ventricle: The right ventricle is mild to moderately dilated. There is a pacemaker lead in the right ventricle. Right ventricular systolic function is moderate to severely reduced. Atria: The left atrium is severely dilated. The right atrium is severely dilated. There is no Doppler evidence for an interatrial shunt. Mitral Valve: The mitral valve leaflets are mildly calcified. There is mild mitral annular calcification. There is no mitral valve stenosis. There is mild to moderate mitral regurgitation. 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 The peak aortic velocity is 1.79 m/sec. The aortic valve mean gradient is 7 mmHg. Possible trivial perivalvular leak. Tricuspid Valve: The tricuspid valve is normal. There is no tricuspid stenosis. There is moderate tricuspid regurgitation. Pulmonic Valve: The pulmonic valve leaflets are thin and pliable; valve motion is normal. There is no pulmonic valvular stenosis. There is trace pulmonic regurgitation. Great Vessels: The ascending aorta is normal in size. The pulmonary artery is normal size. The IVC is of normal diameter and collapses greater than 50% with a sniff. This suggests a low right atrial pressure of 3 mm Hg. Pericardium/ Pleura There is a small pericardial effusion noted. There is a small left-sided pleural effusion. MMode/2D Measurements & Calculations LVIDd: 5.5 cm LVOT diam: 2.0 cm LVIDs: 3.2 cm asc Aorta Diam: 3.5 cm FS: 41.8 % EPSS: 1.6 cm IVSd: 1.5 cm LVPWd: 2.1 cm LV mallory. diameter/BSA (cm/m^2): 2.5 LV sys. diameter/BSA (cm/m^2): 1.5 LA A2 area: 28.0 cm2 RA long axis: 7.7 cm LA A4 area: 29.6 cm2 RA area: 33.3 cm2 LA length (vol): 6.7 cm RA vol: 122.2 ml LA vol: 105.8 ml RA : 56.2 ml/m2 LA vol index: 48.7 ml/m2 RVD1 (basal): 4.9 cm LVLs ap4: 6.0 cm LVLd ap2: 7.5 cm TAPSE_phl: 0.97 cm LVLs ap2: 6.3 cm Doppler Measurements & Calculations Ao V2 max: 179.0 cm/sec LVOT Max Laurent: 78.3 cm/sec Ao V2 mean: 123.0 cm/sec LV V1 max P.5 mmHg Ao max P.0 mmHg LV V1 VTI: 18.1 cm Ao mean P.0 mmHg BLANQUITA(I,D): 1.4 cm2 Ao V2 VTI: 42.2 cm BLANQUITA(V,D): 1.4 cm2 sev ratio: 0.43 BLANQUITA indexed to BSA (cm^2/m^2): 0.65 MV E max laurent: 138.0 cm/sec TR max laurent: 431.5 cm/sec MV A max laurent: 41.6 cm/sec TR max P.5 mmHg MV E/A: 3.3 PA V2 max: 107.0 cm/sec Lat Peak E' Laurent: 10.6 cm/sec PA V2 mean: 66.3 cm/sec E/E' lat: 13.0 PA mean P.0 mmHg MV dec time: 0.16 sec PA pr(Accel): 36.3 mmHg MVA(VTI): 1.6 cm2 MV V2 mean: 64.6 cm/sec SV(LVOT): 59.7 ml MV mean P.2 mmHg MV V2 VTI: 37.2 cm AV VR_phl: 0.44 MV P1/2t-pr_phl: 45.5 msec BLANQUITA(VTI)/BSA_phl: 0.68 Reading Physician:11:59 AM
== END ==
PROVIDERS: PCP Internal Medicine; Referring Provider Internal Medicine; Visit Provider Internal Medicine
DX: J90 Pleural effusion, not elsewhere classified (principal); I08.1 Rheumatic disorders of both mitral and tricuspid valves; I31.39 Other pericardial effusion (noninflammatory); Z95.0 Presence of cardiac pacemaker; Z95.2 Presence of prosthetic heart valve
CPT/HCPCS: 93306

== ENCOUNTER → 2022-11-17 10:42 | Outpatient (CLI) | payer MEDICARE, SELFPAY ==
[2022-11-17 11:39] LABS: Add Manual Diff / Slide Review NO; Basophils Absolute Auto 100 /uL (0-100); Basophils Percent Auto 0.8 % (0-2); Eosinophils Absolute Auto 200 /uL (0-450); Eosinophils Percent Auto 3.5 % (2-4); Hematocrit 33.5 % (41-53); Hemoglobin 11.3 g/dL (13.5-17.5); Lymphocytes Absolute Auto 800 /uL (1100-4500); Lymphocytes Percent Auto 12.4 % (25-40); Mean Corpuscular HGB Conc 33.7 % (30-36); Mean Corpuscular Volume 89.2 fL (80-100); Monocytes Absolute Auto 500 /uL (0-900); Monocytes Percent Auto 7.2 % (3-14); Neutrophils Absolute Auto 5000 /uL (1500-7000); Neutrophils Percent Auto 76.1 % (50-75); Platelet Count 115 X10^3/uL (150-400); Red Blood Cell Count 3.75 X10^6/uL (4.5-5.9); Red Cell Distribution Width 14.2 % (11.6-14.8); White Blood Cell Count 6.6 X10^3/uL (4.5-11.0)
[2022-11-17 11:57] LABS: BUN Creatinine Ratio 20.8 (6-22); Blood Urea Nitrogen 36 mg/dL (9-20); Calcium 8.6 mg/dL (8.4-10.2); Carbon Dioxide 22 mmol/L (22-32); Chloride 106 mmol/L (98-107); Estimated Glomerular Filt Rate 38 mL/min (>60); Glucose 181 mg/dL (80-110); HEMOLYSIS < 15 (0-50); Potassium 4.2 mmol/L (3.4-5.1); Sodium 140 mmol/L (137-145)
== END ==
PROVIDERS: PCP Physician Assistant; Referring Provider Internal Medicine; Visit Provider Internal Medicine
DX: I35.0 Nonrheumatic aortic (valve) stenosis (principal)
CPT/HCPCS: 36415; 80048; 85025

== ENCOUNTER → 2022-11-27 13:23 | Outpatient (CLI) | payer MEDICARE, SELFPAY ==
[2022-11-27 15:46] LABS: Add Manual Diff / Slide Review NO; Basophils Absolute Auto 100 /uL (0-100); Basophils Percent Auto 0.7 % (0-2); Eosinophils Absolute Auto 200 /uL (0-450); Eosinophils Percent Auto 2.2 % (2-4); Hematocrit 34.4 % (41-53); Hemoglobin 11.5 g/dL (13.5-17.5); Lymphocytes Absolute Auto 1000 /uL (1100-4500); Lymphocytes Percent Auto 12.1 % (25-40); Mean Corpuscular HGB Conc 33.5 % (30-36); Mean Corpuscular Hemoglobin 29.8 PG (26-34); Mean Corpuscular Volume 88.9 fL (80-100); Monocytes Absolute Auto 600 /uL (0-900); Monocytes Percent Auto 7.9 % (3-14); Neutrophils Absolute Auto 6100 /uL (1500-7000); Neutrophils Percent Auto 77.1 % (50-75); Platelet Count 143 X10^3/uL (150-400); Red Blood Cell Count 3.87 X10^6/uL (4.5-5.9); Red Cell Distribution Width 14.5 % (11.6-14.8)
== END ==
PROVIDERS: PCP Physician Assistant; Referring Provider Internal Medicine Cardiovascular Disease; Visit Provider Internal Medicine Cardiovascular Disease
DX: Z95.2 Presence of prosthetic heart valve (principal); I27.81 Cor pulmonale (chronic); I48.20 Chronic atrial fibrillation, unspecified; I25.10 Atherosclerotic heart disease of native coronary artery without angina pectoris
CPT/HCPCS: 36415; 85025

== ENCOUNTER → 2023-03-03 14:22 | Outpatient (CLI) | payer MEDICARE, SELFPAY | PROVIDERS: PCP Physician Assistant; Referring Provider Internal Medicine Critical Care Medicine; Visit Provider Internal Medicine Critical Care Medicine | DX: J44.9 Chronic obstructive pulmonary disease, unspecified (principal); Z87.891 Personal history of nicotine dependence | CPT/HCPCS: 94060; 94726; 94729 ==

== ENCOUNTER 2023-07-15 14:54 | Emergency (ER) | payer MEDICARE, SELFPAY ==
[2023-07-15] VITALS (9 sets, daily range): BP systolic 133–159; BP diastolic 61–101; PULSE 68–79; RESP 18–28; TEMP 36.5; O2SAT 92–94
--- NOTE | 2023-07-15 15:10 | DI.CT.S_ITS ---
PROCEDURE: CT HEAD/BRAIN WO CON INDICATIONS: weakness, INR 8 TECHNIQUE: Noncontrast 4.5 mm thick angled axial sections acquired from the foramen magnum to the vertex, with coronal and sagittal reformats. For radiation dose reduction, the following was used: automated exposure control, adjustment of mA and/or kV according to patient size. COMPARISON: None. FINDINGS: Image quality: Diagnostic. CSF spaces: Basal cisterns are patent. No extra-axial fluid collections. The ventricles are symmetric in size and shape. Brain: No intracranial bleeds or masses. There is cerebral volume loss for age, with resultant ventricular and sulcal prominence. There are periventricular and deep white matter chronic small vessel ischemic changes. There is intracranial internal carotid artery atherosclerosis. Skull and face: Calvarium and visualized facial bones appear intact, without suspicious lesions. Sinuses: Visualized sinuses and mastoids are clear. IMPRESSION: No acute intracranial pathology. Dictated by: Robb Andre M.D. on 07/15/2023 at 16:45 Approved by: Robb Andre M.D. on 07/15/2023 at 16:46
--- NOTE | 2023-07-15 15:10 | DI.RAD.S_ITS ---
PROCEDURE: XR CHEST 1V INDICATIONS: elevated inr, weakness TECHNIQUE: One view of the chest was acquired. COMPARISON: [facility], , XR CHEST 1V, 05/29/2022, 10:15. [facility], , CHEST 2 VIEW, 05/22/2016, 11:58. FINDINGS: Surgical changes and devices: Left chest wall generator with cardiac leads. Prosthetic valve. Lungs and pleura: Lungs are clear. No pleural effusions or pneumothorax. Mediastinum: Mediastinal contours appear normal. Heart size is enlarged. Bones and chest wall: No suspicious bony lesions. Overlying soft tissues appear unremarkable. IMPRESSION: No acute cardiopulmonary abnormality is seen. Dictated by: Robb Andre M.D. on 07/15/2023 at 16:44 Approved by: Robb Andre M.D. on 07/15/2023 at 16:45
--- NOTE | 2023-07-15 15:13 | ED_ITS ---
HPI - Recheck/Abnormal Lab/Rx General Chief Complaint: Recheck/Abnormal Lab/Rx Stated Complaint: weakness t-2 weeks Time Seen by Provider: 07/15/23 15:03 Source: patient and EMS Mode of arrival: EMS Limitations: no limitations History of Present Illness HPI narrative: This is an 88-year-old male with history of atrial fibrillation on flecainide, CHF, hypertension, dyslipidemia, asthma with pacemaker and mechanical valve replacement 6 months ago on warfarin. Patient presents today with elevated INR and complaint of weakness. He was at the office and was found to have an INR of 8. Patient states he is felt generally weak although he has been able to take his to her ophthalmology appointment this morning. Patient states no headaches, no recent trauma, denies any chest pain or new shortness of breath. Denies any nausea or vomiting. No diaphoresis. No abdominal back or flank pain. States he has been stooling regularly. No black or bloody stools. No urinary symptoms. Patient states he has not had any atypical bruising or inappropriate bleeding. Patient states does have chronic swelling in his legs but not significantly worse than typical. He follows at the [facility], also follows with cardiology Dr. Macdonald. Quit tobacco in 2013, for alcohol, no recreational drugs. Related Data Home Medications Medication Instructions Recorded Confirmed multivitamin-ferrous 1 tab PO DAILY 12/07/18 04/02/23 fumarate-folic acid 18 mg-400 mcg tablet (Centrum) simvastatin 20 mg tablet 20 mg PO BEDTIME 12/07/18 04/02/23 tiotropium bromide [Spiriva inhalation 12/07/18 04/02/23 Respimat] warfarin 2.5 mg tablet 2.5 mg PO DAILY 12/07/18 04/02/23 allopurinol 100 mg tablet 100 mg PO DAILY 04/16/22 04/02/23 losartan 50 mg tablet 50 mg PO BID 04/16/22 04/02/23 torsemide 40 mg tablet 40 mg PO DAILY 04/16/22 04/02/23 atorvastatin 40 mg tablet 40 mg PO DAILY 02/19/23 04/02/23 colchicine 0.6 mg capsule 1.2 mg PO DAILY PRN 02/19/23 04/02/23 fluticasone propion-salmeterol 1 puff inhalation BID 02/19/23 04/02/23 [Advair Diskus] Previous Rx's Medication Instructions Recorded triamcinolone acetonide 0.1 % 1 applic topical TID #80 grams 03/14/20 topical cream carvedilol 12.5 mg tablet (Coreg) 12.5 mg PO BID #60 tabs 05/29/22 nifedipine 60 mg tablet,extended 60 mg PO DAILY #20 tabs 05/29/22 release 24 hr albuterol sulfate 90 mcg/actuation 2 inh PO Q6H PRN for wheezing #8.5 04/10/23 aerosol inhaler grams Allergies Allergy/AdvReac Type Severity Reaction Status Date / Time No Known Drug Allergies Allergy Verified 04/02/23 13:28 Review of Systems Review of Systems ROS Unobtainable: All systems reviewed & are unremarkable except as noted in HPI and below Patient History Medical History Urinary incontinence with continuous leakage Hematuria History of UTI History of malignant neoplasm of prostate Hydronephrosis, left Left nephrolithiasis History of kidney stones History of high blood pressure Hx of gout Hx of congestive heart failure Shingles Surgical History History of prostate surgery Hx of cholecystectomy Hx of appendectomy Social History marital status: number of children: 0 Smoking Status: Former smoker alcohol intake: current caffeine: Yes Smoking Status: Former smoker alcohol intake frequency: holidays/special occasions only Substance Use Type: does not use Exam Narrative Exam Narrative: GEN: well nourished, well appearing elderly male, alert and oriented x 3, patient appears to be in mild distress. HEENT: Atraumatic, pupils are equal round reactive to light, extraocular movements are intact, nares are clear. Throat is clear without any exudates, erythema, tonsillar enlargement or uvular deviation HEART: Regular rate and rhythm without murmur, clicks, rubs. No carotid bruits, pulses are equal in upper and lower extremities LUNGS:Lungs clear to auscultation, no wheezes, rales, crackles, chest moves symmetrically ABD:bowel sounds normal, soft, non-tender, no guarding, rebound, rigidity, no masses noted, no hepatosplenomegaly :No CVA tenderness MSCL: Non-tender, no muscle atrophy, muscles strength 5/5 upper and lower extremities, full range of motion, normal gait NEURO:CN 2-12 intact, sensation normal. SKIN: Initial Vital Signs Initial Vital Signs: Vital Signs Temperature 97.7 F 07/15/23 14:54 Pulse Rate 68 07/15/23 14:54 Respiratory Rate 20 07/15/23 14:54 Blood Pressure 133/61 07/15/23 14:54 Pulse Oximetry 94 07/15/23 14:54 Oxygen Delivery Method Room Air 07/15/23 14:54 Course Orders Ordered: ED Orders 07/15/23 14:50 Complete Blood Count AUTO DIFF Stat Comprehensive Metabolic Panel Stat Lipase Stat NT-proBNP (BNP-Adult 18+) Stat PTT Partial Thromboplastin Vic Stat Prothrombin Time INR Stat Troponin & CK Cardiac Panel Stat 07/15/23 15:10 CT head/brain wo con Stat XR chest 1V Stat EKG-12 Lead Stat Discontinued Medications Phytonadione 10 mg/ Sodium (Chloride) 101 mls @ 202 mls/hr IV NOW ONE Stop: 07/15/23 15:38 Last Infusion: 07/15/23 16:55 Dose: Infused Documented By: Admin: 07/15/23 16:21 Dose: 202 mls/hr Documented By: ZIA Vital Signs Vital signs: Vital Signs - 8 hr 07/15/23 14:54 07/15/23 14:58 07/15/23 14:58 Temperature 97.7 F Pulse Rate 68 68 Respiratory Rate 20 18 Blood Pressure 133/61 138/63 Pulse Oximetry 94 93 Oxygen Delivery Method Room Air Room Air 07/15/23 15:30 07/15/23 15:30 07/15/23 15:48 Temperature Pulse Rate 70 Respiratory Rate 18 Blood Pressure 142/63 H 136/101 H Pulse Oximetry 93 Oxygen Delivery Method 07/15/23 15:48 07/15/23 16:00 07/15/23 16:01 Temperature Pulse Rate 79 76 Respiratory Rate 28 H 25 H Blood Pressure 142/65 H Pulse Oximetry 94 94 Oxygen Delivery Method 07/15/23 16:01 07/15/23 16:30 07/15/23 16:30 Temperature Pulse Rate 78 73 Respiratory Rate 22 26 H Blood Pressure 156/67 H Pulse Oximetry 94 94 Oxygen Delivery Method Room Air 07/15/23 17:00 07/15/23 17:00 07/15/23 17:30 Temperature Pulse Rate 69 Respiratory Rate 28 H Blood Pressure 145/67 H 159/72 H Pulse Oximetry 92 Oxygen Delivery Method 07/15/23 17:30 Temperature Pulse Rate 75 Respiratory Rate 20 Blood Pressure Pulse Oximetry 92 Oxygen Delivery Method Room Air MDM - Recheck/Abnormal Lab/Rx Lab Data 07/15/23 14:50 07/15/23 14:50 Labs: Lab Results 07/15/23 Range/Units 14:50 WBC 10.5 (4.5-11.0) X10^3/uL RBC 3.48 L (4.5-5.9) X10^6/uL Hgb 9.5 L (13.5-17.5) g/dL Hct 28.4 L (41-53) % MCV 81.5 (80-100) fL MCH 27.1 (26-34) PG MCHC 33.3 (30-36) % RDW 17.0 H (11.6-14.8) % Plt Count 237 (150-400) X10^3/uL Neut % (Auto) 77.1 H (50-75) % Lymph % (Auto) 6.6 L (25-40) % [place] % (Auto) 9.6 (3-14) % Eos % (Auto) 5.5 H (2-4) % Baso % (Auto) 1.2 (0-2) % Neut # (Auto) 8100 H (9873-9718) /uL Lymph # (Auto) 700 L (8218-0745) /uL [place] # (Auto) 1000 H (0-900) /uL Eos # (Auto) 600 H (0-450) /uL Baso # (Auto) 100 (0-100) /uL PT 78.1 H (9.4-12.5) SECONDS INR 6.7 H* (0.9-1.3) APTT 72 H (25.1-36.5) SECONDS Sodium 140 (137-145) mmol/L Potassium 3.5 (3.4-5.1) mmol/L Chloride 108 H (98-107) mmol/L Carbon Dioxide 28 (22-32) mmol/L BUN 46 H (9-20) mg/dL Creatinine 1.90 H (0.66-1.25) mg/dL Estimated GFR 34 L (>60) mL/min BUN/Creatinine Ratio 24.2 H (6-22) Glucose 156 H (80-110) mg/dL Calcium 9.0 (8.4-10.2) mg/dL Total Bilirubin 0.9 (0.2-1.3) mg/dL AST 27 (17-59) IU/L ALT 31 (<50) IU/L Alkaline Phosphatase 114 (38-126) U/L Total Creatine Kinase 26 L (55-170) U/L Troponin I < 0.012 (0.01-0.034) ng/mL NT-Pro-B Natriuret Pep 7970 H (<450) pg/mL Total Protein 7.3 (6.3-8.2) g/dL Albumin 3.5 (3.5-5.0) g/dL Globulin 3.8 (1.7-4.1) g/dL Albumin/Globulin Ratio 0.9 L (1.0-2.8) Lipase 452 H (23-300) U/L Imaging Data CT scan - head: Radiologist's Impression: Close Head CT (Signed) Robb Andre - 07/15/23 Chest X-Ray (Signed) Robb Andre - 07/15/23 PFT Result 03/03/23 Echocardiogram Ultrasound (Signed) Maxx Trevino - 11/13/22 Echocardiogram Ultrasound (Signed) Marti Macdonald - 07/14/22 Chest X-Ray (Signed) Juanpablo George - 05/29/22 Renal Scan Nuclear Medicine (Signed) Isis Miner - 03/24/22 Abdomen X-Ray (Signed) Tejal Govea - 03/21/22 Abdomen/Pelvis CT (Signed) Loulou Solo - 02/25/22 Echocardiogram Ultrasound (Signed) Mike Barlow - 03/28/[address] (Signed) Abimael Kelley - 03/02/[address] [address] [address] Scan Report Signed Patient: Kodi Paredes MR#: [id number] : 1935 Acct:[id number] Age/Sex: 88 / M Date of Service: 07/15/23 Loc: ED Accession Number: [id number] Procedure: CT head/brain wo con Ordering Provider: Mercedes Chavez D.O. PROCEDURE: CT HEAD/BRAIN WO CON INDICATIONS: weakness, INR 8 TECHNIQUE: Noncontrast 4.5 mm thick angled axial sections acquired from the foramen magnum to the vertex, with coronal and sagittal reformats. For radiation dose reduction, the following was used: automated exposure control, adjustment of mA and/or kV according to patient size. COMPARISON: None. FINDINGS: Image quality: Diagnostic. CSF spaces: Basal cisterns are patent. No extra-axial fluid collections. The ventricles are symmetric in size and shape. Brain: No intracranial bleeds or masses. There is cerebral volume loss for age, with resultant ventricular and sulcal prominence. There are periventricular and deep white matter chronic small vessel ischemic changes. There is intracranial internal carotid artery atherosclerosis. Skull and face: Calvarium and visualized facial bones appear intact, without suspicious lesions. Sinuses: Visualized sinuses and mastoids are clear. IMPRESSION: No acute intracranial pathology. Dictated by: Robb Andre M.D. on 07/15/2023 at 16:45 Approved by: Robb Andre M.D. on 07/15/2023 at 16:46 Chest x-ray: Radiologist's Impression: Kodi Paredes??88??M??1935 ? Allergy/Adv: No Known Drug Allergies Close Head CT (Signed) Robb Andre - 07/15/23 Chest X-Ray (Signed) Robb Andre - 07/15/23 PFT Result 03/03/23 Echocardiogram Ultrasound (Signed) Maxx Trevino - 11/13/22 Echocardiogram Ultrasound (Signed) Marti Macdonald - 07/14/22 Chest X-Ray (Signed) Juanpablo George - 05/29/22 Renal Scan Nuclear Medicine (Signed) Isis Miner - 03/24/22 Abdomen X-Ray (Signed) Tejal Govea - 03/21/22 Abdomen/Pelvis CT (Signed) Loulou Solo - 02/25/22 Echocardiogram Ultrasound (Signed) Mike Barlow - 03/28/[address] (Signed) Abimael Kelley - 03/02/18 [address] [address] XRay Report Signed Patient: Kodi Paredes MR#: [id number] : 1935 Acct:[id number] Age/Sex: 88 / M Date of Service: 07/15/23 Loc: ED Accession Number: [id number] Procedure: XR chest 1V Ordering Provider: Mercedes Chavez D.O. PROCEDURE: XR CHEST 1V INDICATIONS: elevated inr, weakness TECHNIQUE: One view of the chest was acquired. COMPARISON: [facility], CR, XR CHEST 1V, 05/29/2022, 10:15. [facility], CR, CHEST 2 VIEW, 05/22/2016, 11:58. FINDINGS: Surgical changes and devices: Left chest wall generator with cardiac leads. Prosthetic valve. Lungs and pleura: Lungs are clear. No pleural effusions or pneumothorax. Mediastinum: Mediastinal contours appear normal. Heart size is enlarged. Bones and chest wall: No suspicious bony lesions. Overlying soft tissues appear unremarkable. IMPRESSION: No acute cardiopulmonary abnormality is seen. Dictated by: Robb Andre M.D. on 07/15/2023 at 16:44 Approved by: Robb Andre M.D. on 07/15/2023 at 16:45 ECG Data Attestation: I personally reviewed and interpreted this ECG as follows: Interpretation: AFib with a occasional ventricularly paced complexes. Rate of 65 QRS of 150 QTC 447. Left axis deviation. Right bundle-branch block. MDM Narrative Medical decision making narrative: This is a 88-year-old male sent to the emergency department for elevated INR was [address] [facility]. Patient was transported via EMS as he was reported to feel weak. Patient states he has not been having any other symptoms no inappropriate bleeding. Denies any headache, states his last check was several weeks ago he was supposed to have it checked 2 or 3 weeks ago but had to cancel it secondary to medical issues with his . He has not had it checked since. He states no medication changes, no dosage changes. He states he has had some changes to his diet. Patient's had head CT based on a reported INR of 8 in his 6.7 on repeat, this is negative. Labs show hemoglobin of 9.5, was 11 5 back in November of 2022, white count of 10.5 platelets of 237. INR today is 6.7. Electrolytes sodium is 140, potassium 3 5 chloride of 108 CO2 of 28 with a BUN 46 creatinine 1.9 slightly higher than his typical, glucose is 156, LFTs are negative. Troponins less than 0.012, BNP is 7970. Lipase is 452. EKG shows AFib with occasional pacing. Chest x-ray shows no acute change Patient had ambulation trial department did very well with no issues is felt appropriate for discharge home. Did discuss with patient need to return and return precautions. Discussed findings with patient, he would like to return home we will have him hold his warfarin and recheck on Thursday. Patient is to return if he hit his head or has any inappropriate bleeding or new changes. BNP is noted to be elevated from his priors, patient states he has not had increasing shortness of breath has not had increasing swelling, he has not hypoxic does not have any changes on chest x-ray we will not adjust his medications at this time but asked patient to follow-up. Discharge Plan Departure Patient Disposition: Home Clinical Impression: Supratherapeutic INR Activity Restrictions/Additional Instructions: Follow up with the office for recheck of your INR. Your INR is 6.7 here at [facility]. Do not take anymore warfarin for the next 2 days and have your INR rechecked on Thursday. You may continue your other home medications as prescribed. Please return if you have any headaches, falls or injuries, new chest pain, shortness of breath, increasing swelling of extremities, any signs of inappropriate bleeding or other new or concerning changes. Prescriptions: No Action warfarin 2.5 mg tablet 2.5 mg PO DAILY simvastatin 20 mg tablet 20 mg PO BEDTIME Centrum 18-400 mg-mcg tablet 1 tab PO DAILY tiotropium bromide INHALATION losartan 50 mg tablet 50 mg PO BID fluticasone propion-salmeterol 1 puff INHALATION BID triamcinolone acetonide 0.1 % cream 1 applic TOP TID Qty: 80 0RF albuterol sulfate 90 mcg/actuation HFA aerosol inhaler 2 inh PO Q6H PRN (Reason: for wheezing) Qty: 8.5 12RF nifedipine 60 mg tablet extended release 24hr 60 mg PO DAILY Qty: 20 0RF carvedilol [Coreg] 12.5 mg tablet 12.5 mg PO BID Qty: 60 0RF Rx Instructions: must administer with a meal/food atorvastatin 40 mg tablet 40 mg PO DAILY colchicine 0.6 mg capsule 1.2 mg PO DAILY PRN allopurinol 100 mg tablet 100 mg PO DAILY torsemide 40 mg tablet 40 mg PO DAILY Referrals: Salima Caputo PA-C [Primary Care Provider] - Stand Alone Forms: Patient Portal/API
[2023-07-15 15:21] LABS: Add Manual Diff / Slide Review NO; Basophils Absolute Auto 100 /uL (0-100); Basophils Percent Auto 1.2 % (0-2); Eosinophils Absolute Auto 600 /uL (0-450); Eosinophils Percent Auto 5.5 % (2-4); Hematocrit 28.4 % (41-53); Hemoglobin 9.5 g/dL (13.5-17.5); Lymphocytes Absolute Auto 700 /uL (1100-4500); Lymphocytes Percent Auto 6.6 % (25-40); Mean Corpuscular HGB Conc 33.3 % (30-36); Mean Corpuscular Hemoglobin 27.1 PG (26-34); Mean Corpuscular Volume 81.5 fL (80-100); Monocytes Absolute Auto 1000 /uL (0-900); Monocytes Percent Auto 9.6 % (3-14); Neutrophils Absolute Auto 8100 /uL (1500-7000); Neutrophils Percent Auto 77.1 % (50-75); Platelet Count 237 X10^3/uL (150-400); Red Blood Cell Count 3.48 X10^6/uL (4.5-5.9); White Blood Cell Count 10.5 X10^3/uL (4.5-11.0)
[2023-07-15 15:27] LABS: Alanine Aminotransferase 31 IU/L (<50); Albumin 3.5 g/dL (3.5-5.0); Albumin Globulin Ratio 0.9 (1.0-2.8); Alkaline Phosphatase 114 U/L (38-126); Aspartate Aminotransferase 27 IU/L (17-59); BUN Creatinine Ratio 24.2 (6-22); Bilirubin Total 0.9 mg/dL (0.2-1.3); Blood Urea Nitrogen 46 mg/dL (9-20); Carbon Dioxide 28 mmol/L (22-32); Chloride 108 mmol/L (98-107); Creatine Kinase 26 U/L (55-170); Estimated Glomerular Filt Rate 34 mL/min (>60); Globulin 3.8 g/dL (1.7-4.1); Glucose 156 mg/dL (80-110); HEMOLYSIS < 15 (0-50); Lipase 452 U/L (23-300); Potassium 3.5 mmol/L (3.4-5.1); Sodium 140 mmol/L (137-145); Total Protein 7.3 g/dL (6.3-8.2)
[2023-07-15 15:30] LABS: Prothrombin Time 78.1 SECONDS (9.4-12.5)
[2023-07-15 15:35] LABS: PTT Partial Thromboplastin Tim 72 SECONDS (25.1-36.5)
[2023-07-15 15:36] LABS: NT-proBNP (BNP-Adult 18+) 7970 pg/mL (<450)
[2023-07-15 15:37] LABS: INR 6.7 (0.9-1.3)
[2023-07-15 15:39] LABS: Troponin I < 0.012 ng/mL (0.01-0.034)
[2023-07-15] MEDS: PHYTONADIONE (VIT K1) 10 MG in SODIUM CHLORIDE 0.9% 100 ML 202 MG IV (16:21)
== END 2023-07-15 18:17 | disposition home or self-care (01) ==
PROVIDERS: Emergency Provider Emergency Medicine; PCP Physician Assistant
DX: R79.1 Abnormal coagulation profile (principal); R53.1 Weakness; Z79.01 Long term (current) use of anticoagulants
CPT/HCPCS: 36415; 70450; 71045; 80053; 82550; 83690; 83880; 84484; 85025; 85610; 85730; 93005; 93010; 96365; 99284; J3430

== ENCOUNTER 2023-09-05 16:10 | Inpatient (IN) | payer MEDICARE, SELFPAY ==
[2023-09-05] VITALS (16 sets, daily range): BP systolic 118–191; BP diastolic 48–83; PULSE 67–144; RESP 16–41; TEMP 36.4–39.2; O2SAT 91–97; BMI 31.7; BMI 30.8
--- NOTE | 2023-09-05 16:18 | DI.RAD.S_ITS ---
PROCEDURE: XR CHEST 1V INDICATIONS: suspected sepsis TECHNIQUE: One view of the chest was acquired. COMPARISON: [facility], CR, XR CHEST 1V, 05/29/2022, 10:15. [facility], CR, XR CHEST 1V, 07/15/2023, 15:13. FINDINGS: Surgical changes and devices: A pacer device is seen. A percutaneously placed aortic valve replacement can be seen. Lungs and pleura: On this semiupright portable chest examination, no large pneumothorax or large pleural effusions are seen. No focal infiltrates are seen. Generalized interstitial prominence can be seen. Mediastinum: There is moderate cardiomegaly. Atherosclerotic calcification of the aortic arch is noted. Bones and chest wall: No suspicious bony lesions. Age-appropriate bony degenerative changes are seen. Overlying soft tissues appear unremarkable. IMPRESSION: Cardiomegaly with interstitial prominence. CHF is suspected. Postoperative and degenerative changes are seen. Dictated by: Marciano Charles M.D. on 09/05/2023 at 15:50 Approved by: Marciano Charles M.D. on 09/05/2023 at 15:51
[2023-09-05] MEDS: ACETAMINOPHEN IV 1,000 MG/100 ML VIAL 400 MG IV (16:30)
[2023-09-05 16:44] LABS: Add Manual Diff / Slide Review NO; Basophils Absolute Auto 100 /uL (0-100); Basophils Percent Auto 0.7 % (0-2); Eosinophils Absolute Auto 200 /uL (0-450); Eosinophils Percent Auto 1.2 % (2-4); Hemoglobin 12.9 g/dL (13.5-17.5); INR 1.5 (0.9-1.3); Lymphocytes Absolute Auto 400 /uL (1100-4500); Lymphocytes Percent Auto 2.2 % (25-40); Mean Corpuscular Hemoglobin 28.1 PG (26-34); Monocytes Absolute Auto 1000 /uL (0-900); Neutrophils Absolute Auto 14700 /uL (1500-7000); Neutrophils Percent Auto 89.9 % (50-75); Platelet Count 161 X10^3/uL (150-400); Prothrombin Time 16.9 SECONDS (9.4-12.5); Red Blood Cell Count 4.59 X10^6/uL (4.5-5.9); Red Cell Distribution Width 17.1 % (11.6-14.8); White Blood Cell Count 16.3 X10^3/uL (4.5-11.0)
[2023-09-05 16:47] LABS: PTT Partial Thromboplastin Tim 36 SECONDS (25.1-36.5)
[2023-09-05 16:48] LABS: Alanine Aminotransferase 28 IU/L (<50); Albumin 4.9 g/dL (3.5-5.0); Albumin Globulin Ratio 1.4 (1.0-2.8); Alkaline Phosphatase 105 U/L (38-126); Aspartate Aminotransferase 28 IU/L (17-59); BUN Creatinine Ratio 22.4 (6-22); Blood Urea Nitrogen 37 mg/dL (9-20); Calcium 9.7 mg/dL (8.4-10.2); Carbon Dioxide 24 mmol/L (22-32); Chloride 107 mmol/L (98-107); Creatine Kinase 40 U/L (55-170); Estimated Glomerular Filt Rate 40 mL/min (>60); Globulin 3.6 g/dL (1.7-4.1); Glucose 99 mg/dL (80-110); HEMOLYSIS 29 (0-50); Lipase 377 U/L (23-300); Potassium 4.4 mmol/L (3.4-5.1); Sodium 140 mmol/L (137-145); Total Protein 8.5 g/dL (6.3-8.2)
[2023-09-05 16:49] LABS: Lactate (Lactic Acid) 2.2 mmol/L (0.7-2.1)
[2023-09-05] MEDS: SODIUM CHLORIDE 0.9% 1,000 ML 250 ML IV (16:50)
[2023-09-05 17:01] LABS: NT-proBNP (BNP-Adult 18+) 5360 pg/mL (<450); Troponin I 0.014 ng/mL (0.01-0.034)
[2023-09-05 17:05] LABS: Procalcitonin 0.08 ng/mL (<0.5)
[2023-09-05 17:22] LABS: Adenovirus Not Detected (Not Detect); B. parapertussis Not Detected (Not Detecte); Bordetella pertussis Not Detected (Not Detect); Chlamydophila pneumoniae Not Detected (Not Detect); Coronavirus 229E Not Detected (Not Detect); Coronavirus HKU1 Not Detected (Not Detect); Coronavirus NL 63 Not Detected (Not Detect); Coronavirus OC43 Not Detected (Not Detect); Human Metapneumovirus Not Detected (Not Detect); Human Rhinovirus/Enterovirus Not Detected (Not Detect); Influenza A Not Detected (Not Detect); Influenza B Not Detected (Not Detect); Mycoplasma pneumoniae Not Detected (Not Detect); Parainfluenza Virus 1 Not Detected (Not Detect); Parainfluenza Virus 2 Not Detected (Not Detect); Parainfluenza Virus 3 Not Detected (Not Detect); Parainfluenza Virus 4 Not Detected (Not Detect); Respiratory Syncytial Virus Not Detected (Not Detect); SARS- CoV-2 Not Detected (Not Detecte)
[2023-09-05 18:06] LABS: Reflexed Lactate in 2 Hours Y
[2023-09-05] MEDS: PIPERACILLIN/TAZO 4.5 GM in SODIUM CHLORIDE 0.9% 100 ML IV (18:06)
--- NOTE | 2023-09-05 18:21 | ED_ITS ---
HPI - General Adult General Chief complaint: Fever Stated complaint: Fever Time Seen by Provider: 09/05/23 17:26 Source: patient and EMS Mode of arrival: EMS History of Present Illness HPI narrative: 88-year-old male. Has a history of atrial fibrillation. Is on warfarin. History of high blood pressure. Is here for evaluation because he states that this morning after waking up he had a sudden onset of shaking chills. Since that time he has not felt well. Has had shaking throughout the day. Denies chest pain, shortness of breath, cough, sinus congestion, sore throat, urinary symptoms, change in bowel habits, headaches, neck pain, abdominal pain or skin rashes. Related Data Home Medications Medication Instructions Recorded Confirmed multivitamin-ferrous 1 tab PO DAILY 12/07/18 09/05/23 fumarate-folic acid 18 mg-400 mcg tablet (Centrum) simvastatin 20 mg tablet 20 mg PO BEDTIME 12/07/18 09/05/23 tiotropium bromide [Spiriva 1 puff inhalation DAILY 12/07/18 09/05/23 Respimat] warfarin 2.5 mg tablet 2.5 mg PO DAILY 12/07/18 09/05/23 allopurinol 100 mg tablet 100 mg PO DAILY 04/16/22 09/05/23 losartan 50 mg tablet 50 mg PO BID 04/16/22 09/05/23 torsemide 40 mg tablet 40 mg PO DAILY 04/16/22 09/05/23 atorvastatin 40 mg tablet 40 mg PO DAILY 02/19/23 09/05/23 fluticasone propion-salmeterol 1 puff inhalation BID 02/19/23 09/05/23 [Advair Diskus] Previous Rx's Medication Instructions Recorded triamcinolone acetonide 0.1 % 1 applic topical TID #80 grams 03/14/20 topical cream carvedilol 12.5 mg tablet (Coreg) 12.5 mg PO BID #60 tabs 05/29/22 nifedipine 60 mg tablet,extended 60 mg PO DAILY #20 tabs 05/29/22 release 24 hr albuterol sulfate 90 mcg/actuation 2 inh PO Q6H PRN for wheezing #8.5 04/10/23 aerosol inhaler grams Allergies Allergy/AdvReac Type Severity Reaction Status Date / Time No Known Drug Allergies Allergy Verified 08/11/23 11:23 Review of Systems Review of Systems ROS Unobtainable: All systems reviewed & are unremarkable except as noted in HPI and below Patient History Medical History Urinary incontinence with continuous leakage Hematuria History of UTI History of malignant neoplasm of prostate Hydronephrosis, left Left nephrolithiasis History of kidney stones History of high blood pressure Hx of gout Hx of congestive heart failure Shingles Surgical History History of prostate surgery Hx of cholecystectomy Hx of appendectomy Social History marital status: number of children: 0 household members: spouse Smoking Status: Former smoker alcohol intake: current caffeine: Yes Smoking Status: Former smoker alcohol intake frequency: holidays/special occasions only Substance Use Type: does not use Exam Initial Vital Signs Initial Vital Signs: Vital Signs Temperature 102.5 F H 09/05/23 16:14 Pulse Rate 95 H 09/05/23 16:14 Respiratory Rate 22 09/05/23 16:14 Blood Pressure 191/83 H 09/05/23 16:14 Pulse Oximetry 96 09/05/23 16:14 Oxygen Delivery Method Nasal Cannula 09/05/23 16:14 Oxygen Flow Rate 2 09/05/23 16:14 Const General: cooperative, comfortable and No ill appearing HENMT Head: normal to inspection and normocephalic Resp Effort & Inspection: normal respiratory effort Auscultation: clear to auscultation bilaterally Cardio Rate: regular rate Rhythm: abnormal rhythm GI Inspection: normal to inspection and non-distended Skin General: no rashes or lesions noted Neuro General: patient alert, patient oriented x3 and moves all extremities Extrem General: normal to inspection and capillary refill normal Course Orders Ordered: ED Orders 09/05/23 16:18 XR chest 1V Stat EKG-12 Lead Stat RT Consult Eval and Treat NOW 09/05/23 16:24 Complete Blood Count AUTO DIFF Stat Comprehensive Metabolic Panel Stat Lactate (Lactic Acid) Stat Lipase Stat NT-proBNP (BNP-Adult 18+) Stat PTT Partial Thromboplastin Vic Stat Procalcitonin Stat Prothrombin Time INR Stat Respiratory Panel (Film Array) Stat Troponin & CK Cardiac Panel Stat 09/05/23 17:36 Blood Culture Stat 09/05/23 18:02 Urinalysis and Microscopic Stat Urine Culture Stat 09/05/23 19:58 Education, smoking cessation ONGOING 09/06/23 05:00 Complete Blood Count AUTO DIFF DAILY Comprehensive Metabolic Panel DAILY Lipase DAILY Prothrombin Time INR DAILY Acetaminophen (Acetaminophen 325 Mg Tablet) 650 mg PO Q6H PRN PRN Reason: Fever/Mild Pain (1-3) Albuterol (Albuterol 2.5 Mg/3 Ml Neb (Adult)) 2.5 mg INH Q4HRWA [facility] Last Admin: 09/05/23 22:08 Dose: 2.5 mg Documented By: ROBERT Albuterol (Albuterol 2.5 Mg/3 Ml Neb (Adult)) 2.5 mg INH Q2HR PRN PRN Reason: Shortness Of Breath Allopurinol (Allopurinol 100 Mg Tablet) 100 mg PO DAILY [facility] Atorvastatin Calcium (Atorvastatin 20 Mg Tablet) 40 mg PO DAILY [facility] Budesonide (Budesonide 0.5 Mg/2 Ml Neb) 0.5 mg INH RTBID [facility] Carvedilol (Carvedilol 12.5 Mg Tablet) 12.5 mg PO BID [facility] Last Admin: 09/05/23 21:45 Dose: 12.5 mg Documented By: MIRTHA Piperacillin Sod/Tazobactam (Sod 3.375 gm/ Sodium Chloride) 100 mls @ 25 mls/hr IV Q8H [facility] Last Admin: 09/05/23 23:16 Dose: 25 mls/hr Documented By: MIRTHA Losartan Potassium (Losartan 50 Mg Tablet) 50 mg PO BID [facility] Last Admin: 09/05/23 21:45 Dose: 50 mg Documented By: MIRTHA Morphine Sulfate (Morphine 4 Mg/Ml Inj) 3 mg IV Q2HR PRN PRN Reason: Pain, Severe (7-10) Naloxone HCl (Naloxone 0.4 Mg/Ml Vial) 0.2 mg IV Q2MIN PRN PRN Reason: Opiate Reversal Nifedipine (Nifedipine 30 Mg Tab Er) 60 mg PO DAILY [facility] Ondansetron HCl (Ondansetron 4 Mg/2 Ml Inj) 4 mg IV NOW PRN PRN Reason: Nausea And Vomiting Ondansetron HCl (Ondansetron 4 Mg/2 Ml Inj) 4 mg IV Q8HR PRN PRN Reason: Nausea And Vomiting Ondansetron HCl (Ondansetron 4 Mg Odt) 4 mg PO Q8HR PRN PRN Reason: Nausea And Vomiting Warfarin Sodium (Warfarin 2.5 Mg Tablet) 2.5 mg PO 1700 JULIETTE Discontinued Medications Albuterol (Albuterol Hfa Mdi 60 Puff/8 Gm Inhaler) 2 puff INH Q6H PRN PRN Reason: for wheezing Albuterol (Albuterol 2.5 Mg/3 Ml Neb (Adult)) 2.5 mg INH Q6H PRN PRN Reason: Wheezing Acetaminophen (Ofirmev) 1,000 mg in 100 mls @ 400 mls/hr IV NOW ONE Stop: 09/05/23 16:36 Last Infusion: 09/05/23 17:55 Dose: Infused Documented By: Admin: 09/05/23 16:30 Dose: 400 mls/hr Documented By: TAI Sodium Chloride (Normal Saline 0.9%) 1,000 mls @ 250 mls/hr IV BOLUS ONE Stop: 09/05/23 20:26 Last Admin: 09/05/23 16:50 Dose: 250 mls/hr Documented By: TAI Piperacillin Sod/Tazobactam (Sod 4.5 gm/ Sodium Chloride) 100 mls @ 200 mls/hr IV NOW ONE Stop: 09/05/23 17:27 Last Infusion: 09/05/23 19:10 Dose: Infused Documented By: Admin: 09/05/23 18:06 Dose: 200 mls/hr Documented By: TAI Azithromycin 500 mg/ Dextrose 250 mls @ 250 mls/hr IV NOW ONE Stop: 09/05/23 19:53 Last Infusion: 09/05/23 21:21 Dose: Infused Documented By: Admin: 09/05/23 20:08 Dose: 250 mls/hr Documented By: PING Piperacillin Sod/Tazobactam (Sod 4.5 gm/ Sodium Chloride) 100 mls @ 200 mls/hr IV Q6HR JULIETTE Morphine Sulfate (Morphine 4 Mg/Ml Inj) 3 mg IV Q2HR [facility] Non-Formulary Medication (Fluticasone Propion-Salmeterol) 1 puff INHALATION BID [facility] Vital Signs Vital signs: Vital Signs - 8 hr 09/05/23 17:00 09/05/23 17:01 09/05/23 17:01 Temperature Pulse Rate 79 82 Respiratory Rate 28 H 26 H Blood Pressure 164/71 H Pulse Oximetry 91 92 09/05/23 17:30 09/05/23 17:30 09/05/23 18:00 Temperature 100.5 F H Pulse Rate 97 H Respiratory Rate 31 H Blood Pressure 163/72 H 145/63 H Pulse Oximetry 92 09/05/23 18:00 09/05/23 18:30 09/05/23 18:30 Temperature Pulse Rate 90 77 Respiratory Rate 41 H 33 H Blood Pressure 139/65 Pulse Oximetry 93 93 09/05/23 19:00 09/05/23 19:00 09/05/23 19:30 Temperature Pulse Rate 75 Respiratory Rate 30 H Blood Pressure 139/62 134/63 Pulse Oximetry 92 09/05/23 19:30 09/05/23 20:00 09/05/23 20:00 Temperature Pulse Rate 77 82 Respiratory Rate 24 24 Blood Pressure 136/63 Pulse Oximetry 94 96 Medical Decision Making Medical Records Medical records reviewed: Yes I reviewed the patient's medical records. Lab Data Lab results reviewed: Yes I reviewed the patient's lab results. 09/05/23 16:24 09/05/23 16:24 Labs: Lab Results 09/05/23 09/05/23 09/05/23 Range/Units 16:24 18:02 18:48 WBC 16.3 H (4.5-11.0) X10^3/uL RBC 4.59 (4.5-5.9) X10^6/uL Hgb 12.9 L (13.5-17.5) g/dL Hct 39.0 L (41-53) % MCV 85.0 (80-100) fL MCH 28.1 (26-34) PG MCHC 33.0 (30-36) % RDW 17.1 H (11.6-14.8) % Plt Count 161 (150-400) X10^3/uL Neut % (Auto) 89.9 H (50-75) % Lymph % (Auto) 2.2 L (25-40) % [place] % (Auto) 6.0 (3-14) % Eos % (Auto) 1.2 L (2-4) % Baso % (Auto) 0.7 (0-2) % Neut # (Auto) 76338 H (3929-7062) /uL Lymph # (Auto) 400 L (2145-0247) /uL [place] # (Auto) 1000 H (0-900) /uL Eos # (Auto) 200 (0-450) /uL Baso # (Auto) 100 (0-100) /uL PT 16.9 H (9.4-12.5) SECONDS INR 1.5 H (0.9-1.3) APTT 36 (25.1-36.5) SECONDS Sodium 140 (137-145) mmol/L Potassium 4.4 (3.4-5.1) mmol/L Chloride 107 (98-107) mmol/L Carbon Dioxide 24 (22-32) mmol/L BUN 37 H (9-20) mg/dL Creatinine 1.65 H (0.66-1.25) mg/dL Estimated GFR 40 L (>60) mL/min BUN/Creatinine Ratio 22.4 H (6-22) Glucose 99 (80-110) mg/dL Lactate 2.2 H 1.1 (0.7-2.1) mmol/L Calcium 9.7 (8.4-10.2) mg/dL Total Bilirubin 1.0 (0.2-1.3) mg/dL AST 28 (17-59) IU/L ALT 28 (<50) IU/L Alkaline Phosphatase 105 (38-126) U/L Total Creatine Kinase 40 L (55-170) U/L Troponin I 0.014 (0.01-0.034) ng/mL NT-Pro-B Natriuret Pep 5360 H (<450) pg/mL Total Protein 8.5 H (6.3-8.2) g/dL Albumin 4.9 (3.5-5.0) g/dL Globulin 3.6 (1.7-4.1) g/dL Albumin/Globulin Ratio 1.4 (1.0-2.8) Lipase 377 H (23-300) U/L Procalcitonin 0.08 (<0.5) ng/mL Urine Color Yellow Urine Appearance Clear Urine pH 5.0 (4.5-8.0) Ur Specific [place] 1.015 (1.000-1.035) Urine Protein 2+ H (Negative) Urine Glucose (UA) Negative (Negative) g/dL Urine Ketones Negative (NEGATIVE) Urine Occult Blood 1+ H (Negative) Urine Nitrate Negative (Negative) Urine Bilirubin Negative (NEGATIVE) Urine Urobilinogen 0.2 (0.2) E.U./dL Ur Leukocyte Esterase Negative (NEGATIVE) Urine RBC 1-5/hpf D (0-5/HPF) Urine WBC 0-1/hpf (0-5/HPF) Ur Squamous Epith Cells None seen (0-5/HPF) Amorphous Sediment 1+ Urine Bacteria None seen (None) Vol Urine Centrifuged 10ml (spun) Chlamy pneumoniae PCR Not detected (Not Detect) Adenovirus (PCR) Not detected (Not Detect) B.parapertussis DNA PCR Not detected (Not Detecte) Coronavirus OC43 (PCR) Not detected (Not Detect) Coronavirus HKU1 (PCR) Not detected (Not Detect) Coronavirus 229E (PCR) Not detected (Not Detect) SARS-CoV-2 (PCR) Not detected (Not Detecte) Coronavirus NL63 (PCR) Not detected (Not Detect) Human Metapneumovir PCR Not detected (Not Detect) Influenza Type A (PCR) Not detected (Not Detect) Influenza Type B (PCR) Not detected (Not Detect) M. pneumoniae (PCR) Not detected (Not Detect) Parainfluenza 1 (PCR) Not detected (Not Detect) Parainfluenza 2 (PCR) Not detected (Not Detect) Parainfluenza 3 (PCR) Not detected (Not Detect) Parainfluenza 4 (PCR) Not detected (Not Detect) RSV (PCR) Not detected (Not Detect) Entero/Rhino (PCR) Not detected (Not Detect) Imaging Data Chest x-ray: Radiologist's Impression: PROCEDURE: XR CHEST 1V INDICATIONS: suspected sepsis TECHNIQUE: One view of the chest was acquired. COMPARISON: [facility], , XR CHEST 1V, 05/29/2022, 10:15. [facility], , XR CHEST 1V, 07/15/2023, 15:13. FINDINGS: Surgical changes and devices: A pacer device is seen. A percutaneously placed aortic valve replacement can be seen. Lungs and pleura: On this semiupright portable chest examination, no large pneumothorax or large pleural effusions are seen. No focal infiltrates are seen. Generalized interstitial prominence can be seen. Mediastinum: There is moderate cardiomegaly. Atherosclerotic calcification of the aortic arch is noted. Bones and chest wall: No suspicious bony lesions. Age-appropriate bony degenerative changes are seen. Overlying soft tissues appear unremarkable. IMPRESSION: Cardiomegaly with interstitial prominence. CHF is suspected. Postoperative and degenerative changes are seen. ECG Data Attestation: I personally reviewed and interpreted this ECG as follows: Interpretation: Atrial fibrillation Ventricular rate 84 My bundle-branch block No ST T wave changes MDM Narrative Medical decision making narrative: His sudden onset of shaking earlier today is consistent with rigors. He does have leukocytosis. Unsure the exact cause of his symptoms as does not have a specific source of infection. Chest x-ray does not look like pneumonia, he has no abdominal pain, no bowel changes, urinalysis not consistent with the infection, he has no skin changes concerning for cellulitis. He has no URI symptoms, respiratory panel was negative. He was requiring oxygen to keep his saturations above 90% which is new for him. He was respiratory panel was negative. Cultures were obtained. Patient has not been hypoxic. Antibiotics administered. Discussed the case with Dr. Ansari hospitalist on-call who will admit for further evaluation and treatment and antibiotics. Discussed the need for admission with the patient who expressed understanding and agreement as well. Discharge Plan Departure Patient Disposition: Admitted As Inpatient Clinical Impression: Hypoxia, Leukocytosis, Fever Admit Date/Time: 09/05/23 20:36 Admit Provider: Mikie Kimball
[2023-09-05 18:30] LABS: Appearance Urine UA CLEAR; Bilirubin Urine UA NEGATIVE (NEGATIVE); Color Urine UA YELLOW; Glucose Urine UA NEGATIVE (Negative); Ketones Urine UA NEGATIVE (NEGATIVE); Leukocyte Esterase Urine UA NEGATIVE (NEGATIVE); Nitrite Urine UA NEGATIVE (Negative); Occult Blood Urine UA 1+ (Negative); Protein Urine UA 2+ (Negative); Specific Gravity Urine UA 1.015 (1.000-1.035); Urobilinogen Urine UA 0.2 E.U./dL (0.2)
[2023-09-05 18:48] LABS: Amorphous Sediment Urine 1+; Bacteria Urine None Seen; RBC Urine 1-5/HPF (0-5/HPF); Squamous Epithelial Cell Urine None Seen (0-5/HPF); Urine Volume 10mL (spun); WBC Urine 0-1/HPF (0-5/HPF)
[2023-09-05 19:08] LABS: Lactate 2HR (Lactic Acid Rflx) 1.1 mmol/L (0.7-2.1)
[2023-09-05] MEDS: AZITHROMYCIN 500 MG in DEXTROSE 5% IN WATER 250 ML 250 MG IV (20:08)
[2023-09-05] MEDS: LOSARTAN 50 MG TABLET PO (21:45)
[2023-09-05] MEDS: carvediloL 12.5 MG TABLET PO (21:45)
[2023-09-05] MEDS: ALBUTEROL 2.5 MG/3 ML NEB (ADULT) INH (22:08)
[2023-09-05] MEDS: PIPERACILLIN/TAZO 3.375 GM in SODIUM CHLORIDE 0.9% 100 ML IV (23:16)
[2023-09-06] VITALS (14 sets, daily range): BP systolic 126–159; BP diastolic 46–60; PULSE 60–74; RESP 16–20; TEMP 36.2–36.7; O2SAT 89–97
--- NOTE | 2023-09-06 03:55 | PM.HP.1 ---
History of Present Illness History of Present Illness Date Patient Seen: 09/05/23 Time Patient Seen: 21:30 Chief complaint: Fever Narrative: The pt is a 88 yo with a hx of a-fib on Warfarin and hx of pacemaker who presents to the ER tonight with c/o rigors that have been present for most of the day, tachycaria, heart palpations and dyspnea. In the ER he was noted to have a fever of 100.5, HR 90, and SaO2-86% on RA requiring 2 lpm of oxygen. He denies sputum production, hemoptysis, but reports some abd pain, mild nausea, with loose stools. [facility] Medical History Urinary incontinence with continuous leakage Hematuria History of UTI History of malignant neoplasm of prostate Hydronephrosis, left Left nephrolithiasis History of kidney stones History of high blood pressure Hx of gout Hx of congestive heart failure Shingles Surgical History History of prostate surgery Hx of cholecystectomy Hx of appendectomy Social History marital status: number of children: 0 household members: spouse Smoking Status: Former smoker alcohol intake: current caffeine: Yes Meds Home Medications and Allergies Home Medications Medication Instructions Recorded Confirmed Type multivitamin-ferrous 1 tab PO DAILY 12/07/18 09/05/23 History fumarate-folic acid 18 mg-400 mcg tablet (Centrum) simvastatin 20 mg tablet 20 mg PO BEDTIME 12/07/18 09/05/23 History tiotropium bromide [Spiriva 1 puff inhalation DAILY 12/07/18 09/05/23 History Respimat] warfarin 2.5 mg tablet 2.5 mg PO DAILY 12/07/18 09/05/23 History triamcinolone acetonide 0.1 % 1 applic topical TID #80 grams 03/14/20 09/05/23 Rx topical cream allopurinol 100 mg tablet 100 mg PO DAILY 04/16/22 09/05/23 History losartan 50 mg tablet 50 mg PO BID 04/16/22 09/05/23 History torsemide 40 mg tablet 40 mg PO DAILY 04/16/22 09/05/23 History carvedilol 12.5 mg tablet (Coreg) 12.5 mg PO BID #60 tabs 05/29/22 09/05/23 Rx nifedipine 60 mg tablet,extended 60 mg PO DAILY #20 tabs 05/29/22 09/05/23 Rx release 24 hr atorvastatin 40 mg tablet 40 mg PO DAILY 02/19/23 09/05/23 History fluticasone propion-salmeterol 1 puff inhalation BID 02/19/23 09/05/23 History [Advair Diskus] albuterol sulfate 90 mcg/actuation 2 inh PO Q6H PRN for wheezing #8.5 04/10/23 09/05/23 Rx aerosol inhaler grams Allergies Allergy/AdvReac Type Severity Reaction Status Date / Time No Known Drug Allergies Allergy Verified 08/11/23 11:23 Exam Vital Signs (past 8 hours): - 09/05/23 20:00 09/05/23 20:00 09/05/23 20:40 Temperature 97.5 F L Pulse Rate 82 75 Respiratory Rate 24 16 Blood Pressure 136/63 118/48 L Pulse Oximetry 96 97 Oxygen Delivery Method Oxygen Flow Rate 2 Fraction of Inspired Oxygen 09/05/23 20:45 09/05/23 21:05 09/05/23 21:27 Temperature Pulse Rate 67 Respiratory Rate 18 Blood Pressure Pulse Oximetry 95 97 Oxygen Delivery Method Nasal Cannula Nasal Cannula Nasal Cannula Oxygen Flow Rate 2 2 Fraction of Inspired Oxygen 28 09/05/23 21:45 09/06/23 00:00 Temperature 97.5 F L Pulse Rate 67 60 Respiratory Rate 19 Blood Pressure 118/48 L 126/52 L Pulse Oximetry 97 Oxygen Delivery Method Oxygen Flow Rate 0 Fraction of Inspired Oxygen Fraction of Inspired Oxygen 28 SaO2/FiO2 Ratio 346 Oxygen Delivery Method Nasal Cannula Oxygen Flow Rate 0 Narrative Exam Narrative: The pt was not available during my shift but the exam was performed by nursing staff and the pt had clear breath sounds, no distress with heart without murmur, abdominal exam was beign with BS present, non-tender or distended with no neurological deficits. Objective Labs 09/05/23 16:24 09/05/23 16:24 Labs: Laboratory Results - last 24 hr 09/05/23 09/05/23 09/05/23 16:24 18:02 18:48 WBC 16.3 H RBC 4.59 Hgb 12.9 L Hct 39.0 L MCV 85.0 MCH 28.1 MCHC 33.0 RDW 17.1 H Plt Count 161 Neut % (Auto) 89.9 H Lymph % (Auto) 2.2 L [place] % (Auto) 6.0 Eos % (Auto) 1.2 L Baso % (Auto) 0.7 Neut # (Auto) 73708 H Lymph # (Auto) 400 L [place] # (Auto) 1000 H Eos # (Auto) 200 Baso # (Auto) 100 PT 16.9 H INR 1.5 H APTT 36 Sodium 140 Potassium 4.4 Chloride 107 Carbon Dioxide 24 BUN 37 H Creatinine 1.65 H Estimated GFR 40 L BUN/Creatinine Ratio 22.4 H Glucose 99 Lactate 2.2 H 1.1 Calcium 9.7 Total Bilirubin 1.0 AST 28 ALT 28 Alkaline Phosphatase 105 Total Creatine Kinase 40 L Troponin I 0.014 NT-Pro-B Natriuret Pep 5360 H Total Protein 8.5 H Albumin 4.9 Globulin 3.6 Albumin/Globulin Ratio 1.4 Lipase 377 H Procalcitonin 0.08 Urine Color Yellow Urine Appearance Clear Urine pH 5.0 Ur Specific [place] 1.015 Urine Protein 2+ H Urine Glucose (UA) Negative Urine Ketones Negative Urine Occult Blood 1+ H Urine Nitrate Negative Urine Bilirubin Negative Urine Urobilinogen 0.2 Ur Leukocyte Esterase Negative Urine RBC 1-5/hpf D Urine WBC 0-1/hpf Ur Squamous Epith Cells None seen Amorphous Sediment 1+ Urine Bacteria None seen Vol Urine Centrifuged 10ml (spun) Chlamy pneumoniae PCR Not detected Adenovirus (PCR) Not detected B.parapertussis DNA PCR Not detected Coronavirus OC43 (PCR) Not detected Coronavirus HKU1 (PCR) Not detected Coronavirus 229E (PCR) Not detected SARS-CoV-2 (PCR) Not detected Coronavirus NL63 (PCR) Not detected Human Metapneumovir PCR Not detected Influenza Type A (PCR) Not detected Influenza Type B (PCR) Not detected M. pneumoniae (PCR) Not detected Parainfluenza 1 (PCR) Not detected Parainfluenza 2 (PCR) Not detected Parainfluenza 3 (PCR) Not detected Parainfluenza 4 (PCR) Not detected RSV (PCR) Not detected Entero/Rhino (PCR) Not detected Assessment & Plan Assessment and plan (1) Leukocytosis: Status: Acute (2) COPD (chronic obstructive pulmonary disease): Qualifiers: COPD type: unspecified COPD Qualified Code(s): J44.9 - Chronic obstructive pulmonary disease, unspecified Status: Acute (3) CKD stage 3a, GFR 45-59 ml/min: Status: Acute (4) Pancreatitis: Status: Acute Plan I discussed the pts symptoms and labs with the ER provider and had shared decision making with them, agree with the decision for admission. I have reviewed the labs personally, mac[place]a WBC is 16, Cr of 1.6 ( better than previous) BNP was 5300 (previously higher on previous exam of 8000), and a Lipase of 377. The CXR was reviewed by myself, showing no acute infiltrates, respiratory panel neg. I have discussed the home meds with the pt and have restarted most of them, checking INR, lipase and comp in the morning. Empiric Zosyn has been started since this will cover possible respiratory pathogens and intestinal pathogens given the elevated lipase. Quality VTE Deep Vein Thrombosis/Pulmonary Embolism Present on Admission: No
[2023-09-06 05:02] LABS: Acinetobacter calcoa-baumannii Not Detected (Not Detect); Bacteroides fragilis Not Detected (Not Detect); Candida albicans Not Detected (Not Detect); Candida auris Not Detected (Not Detect); Candida glabrata Not Detected (Not Detect); Candida krusei Not Detected (Not Detect); Candida parapsilosis Not Detected (Not Detect); Candida tropicalis Not Detected (Not Detect); Cryptococcus neoformans/gatti Not Detected (Not Detect); Enterobacter cloacae complex Not Detected (Not Detect); Enterobacterales Not Detected (Not Detect); Enterococcus faecalis Not Detected (Not Detect); Enterococcus faecium Not Detected (Not Detect); Haemophilus influenzae Not Detected (Not Detect); Klebsiella aerogenes Not Detected (Not Detect); Listeria monocytogenes Not Detected (Not Detect); Neisseria meningitidis Not Detected (Not Detect); Proteus species Not Detected (Not Detect); Pseudomonas aeruginosa Not Detected (Not Detect); Salmonella species Not Detected (Not Detect); Serratia marcescens Not Detected (Not Detect); Staphylococcus epidermidis Not Detected (Not Detect); Staphylococcus lugdunensis Not Detected (Not Detect); Staphylococcus species Not Detected (Not Detect); Stenotrophomonas maltophilia Not Detected (Not Detect); Streptococcus agalactiae (Gr B Not Detected (Not Detect); Streptococcus pneumonia Not Detected (Not Detect); Streptococcus pyogenes (Gr A) Not Detected (Not Detect); Streptococcus species Detected (Not Detect)
[2023-09-06 05:20] LABS: INR 1.7 (0.9-1.3); Prothrombin Time 19.8 SECONDS (9.4-12.5)
[2023-09-06 05:26] LABS: Add Manual Diff / Slide Review NO; Basophils Absolute Auto 100 /uL (0-100); Basophils Percent Auto 0.4 % (0-2); Eosinophils Absolute Auto 0 /uL (0-450); Eosinophils Percent Auto 0.2 % (2-4); Hemoglobin 10.8 g/dL (13.5-17.5); Lymphocytes Absolute Auto 500 /uL (1100-4500); Lymphocytes Percent Auto 3.9 % (25-40); Mean Corpuscular HGB Conc 32.5 % (30-36); Mean Corpuscular Hemoglobin 27.6 PG (26-34); Mean Corpuscular Volume 84.8 fL (80-100); Monocytes Absolute Auto 800 /uL (0-900); Monocytes Percent Auto 6.7 % (3-14); Neutrophils Absolute Auto 10500 /uL (1500-7000); Neutrophils Percent Auto 88.8 % (50-75); Platelet Count 109 X10^3/uL (150-400); Red Cell Distribution Width 17.1 % (11.6-14.8); White Blood Cell Count 11.8 X10^3/uL (4.5-11.0)
[2023-09-06 05:28] LABS: Alanine Aminotransferase 25 IU/L (<50); Albumin 3.5 g/dL (3.5-5.0); Albumin Globulin Ratio 1.2 (1.0-2.8); Alkaline Phosphatase 82 U/L (38-126); Aspartate Aminotransferase 25 IU/L (17-59); BUN Creatinine Ratio 20.1 (6-22); Bilirubin Total 1.2 mg/dL (0.2-1.3); Blood Urea Nitrogen 38 mg/dL (9-20); Calcium 8.5 mg/dL (8.4-10.2); Carbon Dioxide 22 mmol/L (22-32); Chloride 108 mmol/L (98-107); Estimated Glomerular Filt Rate 34 mL/min (>60); Glucose 98 mg/dL (80-110); HEMOLYSIS < 15 (0-50); Lipase 215 U/L (23-300); Potassium 4.5 mmol/L (3.4-5.1); Sodium 137 mmol/L (137-145); Total Protein 6.5 g/dL (6.3-8.2)
[2023-09-06] MEDS: PIPERACILLIN/TAZO 3.375 GM in SODIUM CHLORIDE 0.9% 100 ML IV (06:41)
--- NOTE | 2023-09-06 09:05 | DI.ECHO.S_ITS ---
[place] [facility]+ [facility] : : [address] : : [place] : : [id number] : : Phone: [phone] Echocardiogram Report + + :Name: RYAN CANELA Study Date: 09/06/2023 Height: 70 in : :Hospital ReadingLocation: Weight: 214 lb : : Gender: Male BSA: 2.1 m2 : :: 1935 Age: 88 yrs BP: 159/51 mmHg: :Reason For Study: 08/05 POSITIVE STREP BACTEREMIA, CHECK FOR : :ENDOCARDITIS : :Ordering Physician: CONCEPCIÓN, : :JUSTINO Chacko Performed By: Zeenat Jon : :Referring: JUSTINO BEEBE : + + Interpretation Summary There is mild concentric left ventricular hypertrophy. The ejection fraction is estimated to be 55-60%. There is a mild dyssynchronous contraction pattern due to the paced rhythm. The right ventricle is mild to moderately dilated. There is a pacemaker lead in the right ventricle. The right ventricular systolic function is normal. The right ventricular systolic pressure is estimated to be at least 69 mmHg based on an estimated right atrial pressure of 15 mm Hg. The left atrium is severely dilated. The right atrium is severely dilated. There is mild to moderate mitral regurgitation. 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 The peak aortic velocity is 2.3 m/sec. There is mild to moderate perivalvular regurgitation around the prosthetic aortic valve. There is moderate tricuspid regurgitation. No moderate to large vegetative masses noted on today's echocardiogram. The dimensions of the ascending aorta are normal. Procedure: A two-dimensional transthoracic echocardiogram with color flow and Doppler was performed. The study quality was technically adequate. Comparison is made with the echocardiogram of 11/13/2022. The heart rate ranged between 62-71 bpm during the study. Left Ventricle: The left ventricle is normal in size. There is mild concentric left ventricular hypertrophy. The ejection fraction is estimated to be 55-60%. There is a mild dyssynchronous contraction pattern due to the paced rhythm. Right Ventricle: The right ventricle is mild to moderately dilated. There is a pacemaker lead in the right ventricle. The right ventricular systolic function is normal. Atria: The left atrium is severely dilated. There is a catheter/pacemaker lead seen in the right atrium. The right atrium is severely dilated. There is no Doppler evidence for an interatrial shunt. Mitral Valve: The mitral valve leaflets are mildly calcified. There is mild mitral annular calcification. There is mild to moderate mitral regurgitation. 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 There is mild to moderate perivalvular regurgitation around the prosthetic aortic valve. The peak aortic velocity is 2.3 m/sec. The aortic valve mean gradient is 13 mmHg. The calculated aortic valve area is 1.3 cm2. Tricuspid Valve: The tricuspid valve is normal in structure and function. There is moderate tricuspid regurgitation. The right ventricular systolic pressure is estimated to be at least 69 mmHg based on an estimated right atrial pressure of 15 mm Hg. Pulmonic Valve: The pulmonic valve leaflets are thin and pliable; valve motion is normal. There is trace pulmonic regurgitation. Great Vessels: The dimensions of the ascending aorta are normal. The IVC is dilated (diameter is greater than 2.1 cm) and it collapses less than 50% with a sniff. This suggests a high right atrial pressure of 15 mm Hg. Pericardium/ Pleura There is a trace loculated pericardial effusion. There is no pleural effusion. MMode/2D Measurements & Calculations LVIDd: 5.4 cm LVOT diam: 2.0 cm LVIDs: 3.6 cm asc Aorta Diam: 3.3 cm FS: 33.6 % IVSd: 1.3 cm LVPWd: 1.1 cm LV mallory. diameter/BSA (cm/m^2): 2.5 LV sys. diameter/BSA (cm/m^2): 1.7 LA A2 area: 32.0 cm2 RA long axis: 7.9 cm LA A4 area: 32.6 cm2 RA area: 31.8 cm2 LA length (vol): 7.4 cm RA vol: 108.5 ml LA vol: 119.3 ml RA : 50.5 ml/m2 LA vol index: 55.5 ml/m2 IVC diam: 2.3 cm RVD1 (basal): 4.9 cm RVD2 (mid): 3.8 cm TAPSE: 1.8 cm Doppler Measurements & Calculations Ao V2 max: 233.9 cm/sec LVOT Max Laurent: 101.3 cm/sec Ao V2 mean: 169.6 cm/sec LV V1 max P.1 mmHg Ao max P.9 mmHg LV V1 VTI: 19.7 cm Ao mean P.0 mmHg BLANQUITA(I,D): 1.3 cm2 Ao V2 VTI: 46.1 cm BLANQUITA(V,D): 1.3 cm2 sev ratio: 0.43 BLANQUITA indexed to BSA (cm^2/m^2): 0.60 AI P1/2t: 584.6 msec AI dec slope: 191.7 cm/sec2 MV E max laurent: 114.7 cm/sec TR max laurent: 366.3 cm/sec MV A max laurent: 1.1 cm/sec TR max P.7 mmHg MV E/A: 106.6 PA V2 max: 107.7 cm/sec Med Peak E' Laurent: 6.1 cm/sec PA V2 mean: 68.5 cm/sec E/E' med: 18.9 PA mean P.2 mmHg Lat Peak E' Laurent: 7.7 cm/sec PA pr(Accel): 34.5 mmHg E/E' lat: 15.0 E/e' average: 17.0 MV dec time: 0.24 sec MVA(VTI): 1.9 cm2 MV V2 mean: 73.8 cm/sec SV(LVOT): 59.3 ml MV mean P.7 mmHg MV V2 VTI: 31.7 cm Reading Physician:06:42 AM
[2023-09-06] MEDS: ATORVASTATIN 20 MG TABLET 40 MG PO (09:35)
[2023-09-06] MEDS: allopurinoL 100 MG TABLET PO (09:35)
[2023-09-06] MEDS: carvediloL 12.5 MG TABLET PO ×2 (09:35→20:34)
[2023-09-06] MEDS: NIFEdipine 30 MG TAB ER 60 MG PO (09:36)
[2023-09-06] MEDS: LOSARTAN 50 MG TABLET PO ×2 (09:36→20:35)
--- NOTE | 2023-09-06 11:23 | PC.NURSE ---
Patient alert and oriented x4, asking appropriate question about care, vss afibrile, taking po well-echo in progress
--- NOTE | 2023-09-06 14:00 | CM.DANOTE ---
Patient is an 88 yo male who was admitted INPT status on 09/05/23 for Fever. Pt has MCR and [employer] for insurance and his PCP is Salima Caputo. EMR was reviewed. Per MD, pt with elevated trops and getting Echo and awaiting cultures to determine if hospital transfer needed for GARY vs remain here for medical tx. Per ID MD Consult, likely need for IV-Abx at discharge pending cultures. SW met bedside with pt and explained role and pt was able to answer appropriately but slow and unclear if any mild cognitive impairment. Pt confirms he lives in an RV at [facility] outside of [place] with his for the past couple years. Pt states he uses a cane for ambulation and still drives and denies any hx of HH or SNF. Pt states his spouse does not use DME but should be using a cane as well. Pt states his closest family lives in [facility] and [facility]. Pt concerned with what his medical condition and needs might be. Plan: SW to follow closely for Echo and culture results to determine possible hospital transfer for higher level of care needs vs remain here and could benefit from PT eval and recommendations and to determine if buttermaker continuous churn IV-Abx needed at d/c. BRANDON Hoffman Discharge Planning/Care Management CM Discharge Assessment Start: 09/06/23 13:59 Freq: Status: Active Protocol: Document 09/06/23 13:59 BF (Rec: 09/06/23 14:00 BF [id number]) Discharge Planning Assessment Assigned Chief Crna BRANDON Patricia DPOA/Assigned Designee Name spouse Flaquita Advance Directives? No Advance Directives on File No History Provided By Patient,Medical Record Has Patient been admitted in last 30 No days? Prior Living Arrangements RV Household Members spouse Type of transporation used prior to Drives own vehicle admit Independent with ADL's Yes: mostly Is patient alert and oriented? Yes: mostly Needs Assistance With Managing Medications,Home Chores / Shopping Caregiver for Another No DME Already Rented / Owned Cane Comment Pending Echo and possible PT eval Barriers to Discharge No Discharge Plan Home with Home Health Transportation Arrangement Pending medical POC Additional Comment Pending PT eval if pt isn't transferred for higher level of care needs Whiteboard Updated in Patient Room with Yes name and ext. # of Chief Crna Review Status In Process Please Provide Date Initial DC 09/06/23 Assessment Was Performed Next Review Type Continued Stay Review
[2023-09-06] MEDS: cefTRIAXone 2,000 MG in SODIUM CHLORIDE 0.9% 100 ML 200 MG IV (15:51)
--- NOTE | 2023-09-06 18:43 | P.PN_ITS ---
Subjective Subjective Interval history: Blood cultures positive 4/4 for strep species. Patient feeling better and denies further rigors or fevers. WBC downtrending. He notes no dental issues or wounds. Exam Vital Signs (past 8 hours): - 09/06/23 12:00 09/06/23 15:16 09/06/23 15:36 Temperature 97.2 F L 97.1 F L Pulse Rate 61 70 Respiratory Rate 16 16 Blood Pressure 129/52 L 136/46 L Pulse Oximetry 94 92 94 Oxygen Delivery Method Room Air Oxygen Flow Rate 0 0 Fraction of Inspired Oxygen 28 SaO2/FiO2 Ratio 328 Oxygen Delivery Method Room Air Oxygen Flow Rate 0 Narrative Exam Narrative: GEN: no acute distress HEENT: moist mucous membranes, PERRL NECK: trachea midline, no JVD CV: regular rate and rhythm, no murmurs PULM: clear bilaterally ABD: soft, nontender, nondistended, no organomegaly EXT: warm and well perfused with no edema NEURO: awake, alert, oriented, no focal deficits Objective Labs 09/06/23 04:54 09/06/23 04:54 Labs: Laboratory Results - last 24 hr 09/05/23 09/05/23 09/05/23 16:24 18:02 18:48 WBC RBC Hgb Hct MCV MCH MCHC RDW Plt Count Neut % (Auto) Lymph % (Auto) [place] % (Auto) Eos % (Auto) Baso % (Auto) Neut # (Auto) Lymph # (Auto) [place] # (Auto) Eos # (Auto) Baso # (Auto) PT INR Sodium Potassium Chloride Carbon Dioxide BUN Creatinine Estimated GFR BUN/Creatinine Ratio Glucose Lactate 1.1 Calcium Total Bilirubin AST ALT Alkaline Phosphatase Total Protein Albumin Globulin Albumin/Globulin Ratio Lipase Urine RBC 1-5/hpf D Urine WBC 0-1/hpf Ur Squamous Epith Cells None seen Amorphous Sediment 1+ Urine Bacteria None seen Vol Urine Centrifuged 10ml (spun) A.calcoaceticus-baumannii cmplx PCR Not detected Bacteroides fragilis Not detected Chantel albicans (PCR) Not detected Chantel auris (PCR) Not detected C. glabrata (PCR) Not detected C. krusei (PCR) Not detected C. parapsilosis (PCR) Not detected C. tropicalis (PCR) Not detected C. neoform/gattii (PCR) Not detected Enterobacterales (PCR) Not detected E. cloacae complex PCR Not detected Enterococc faecalis PCR Not detected Enterococc faecium PCR Not detected E. coli (PCR) Not detected H. influenzae (PCR) Not detected Klebsiella aerogenes (PCR) Not detected Klebsiella oxytoca PCR Not detected Klebsiella pneumoniae Not detected List. monocytogenes PCR Not detected N. meningitidis (PCR) Not detected Proteus species (PCR) Not detected Salmonella spp. (PCR) Not detected Serratia marcescens PCR Not detected Staphylococcus sp PCR Not detected Staph aureus (PCR) Not detected mecA/C & MREJ Resist Gene Not applicable mecA/C-Methicil Resis Gene Not applicable mcr-1 Colistin Res Gene PCR Not applicable Staph epidermidis (PCR) Not detected Staph lugdunensis PCR Not detected S. maltophilia (PCR) Not detected Streptococcus sp PCR Detected Group A Strep (PCR) Not detected Strep agalactiae (PCR) Not detected Strep pneumoniae (PCR) Not detected P. aeruginosa (PCR) Not detected Lorna/B-Vanco Res Genes Not applicable blaIMP Car res Gene PCR Not applicable KPC-Carbap Res Gene PCR Not applicable blaNDM Car Res Gene PCR Not applicable OXA-48 Carbapenem Resis Gene (PCR) Not applicable blaVIM Car Res Gene PCR Not applicable CTX-M Gene Resistance (PCR) Not applicable 09/06/23 04:54 WBC 11.8 H RBC 3.90 L Hgb 10.8 L Hct 33.0 L MCV 84.8 MCH 27.6 MCHC 32.5 RDW 17.1 H Plt Count 109 L Neut % (Auto) 88.8 H Lymph % (Auto) 3.9 L [place] % (Auto) 6.7 Eos % (Auto) 0.2 L Baso % (Auto) 0.4 Neut # (Auto) 52405 H Lymph # (Auto) 500 L [place] # (Auto) 800 Eos # (Auto) 0 Baso # (Auto) 100 PT 19.8 H INR 1.7 H Sodium 137 Potassium 4.5 Chloride 108 H Carbon Dioxide 22 BUN 38 H Creatinine 1.89 H Estimated GFR 34 L BUN/Creatinine Ratio 20.1 Glucose 98 Lactate Calcium 8.5 Total Bilirubin 1.2 AST 25 ALT 25 Alkaline Phosphatase 82 Total Protein 6.5 Albumin 3.5 Globulin 3.0 Albumin/Globulin Ratio 1.2 Lipase 215 Urine RBC Urine WBC Ur Squamous Epith Cells Amorphous Sediment Urine Bacteria Vol Urine Centrifuged A.calcoaceticus-baumannii cmplx PCR Bacteroides fragilis Chantel albicans (PCR) Chantel auris (PCR) C. glabrata (PCR) C. krusei (PCR) C. parapsilosis (PCR) C. tropicalis (PCR) C. neoform/gattii (PCR) Enterobacterales (PCR) E. cloacae complex PCR Enterococc faecalis PCR Enterococc faecium PCR E. coli (PCR) H. influenzae (PCR) Klebsiella aerogenes (PCR) Klebsiella oxytoca PCR Klebsiella pneumoniae List. monocytogenes PCR N. meningitidis (PCR) Proteus species (PCR) Salmonella spp. (PCR) Serratia marcescens PCR Staphylococcus sp PCR Staph aureus (PCR) mecA/C & MREJ Resist Gene mecA/C-Methicil Resis Gene mcr-1 Col[place]in Res Gene PCR Staph epidermidis (PCR) Staph lugdunensis PCR S. maltophilia (PCR) Streptococcus sp PCR Group A Strep (PCR) Strep agalactiae (PCR) Strep pneumoniae (PCR) P. aeruginosa (PCR) Lorna/B-Vanco Res Genes blaIMP Car res Gene PCR KPC-Carbap Res Gene PCR blaNDM Car Res Gene PCR OXA-48 Carbapenem Resis Gene (PCR) blaVIM Car Res Gene PCR CTX-M Gene Resistance (PCR) PFSH Medical History Urinary incontinence with continuous leakage Hematuria History of UTI History of malignant neoplasm of prostate Hydronephrosis, left Left nephrolithiasis History of kidney stones History of high blood pressure Hx of gout Hx of congestive heart failure Shingles Surgical History History of prostate surgery Hx of cholecystectomy Hx of appendectomy Social History marital status: number of children: 0 household members: spouse Smoking Status: Former smoker alcohol intake: current caffeine: Yes Assessment & Plan Assessment & Plan narrative: # strep bacteremia of unknown source -presented with rigors and fevers -blood cultures positive 4/4 for strep species -stop zosyn, start rocephin 2g daily -source unknown, patient has no lines, no wounds and no dental issues or recent dental work -repeat blood cultures in AM -TTE to look for endocarditis -spoke with ID and pt will likely need GARY given no clear source, has pacemaker which could be nidus of infection # COPD -not in exacerbation -inhaler PRN # paroxysmal A-fib -warfarin per pharmacy -continue coreg # CKD stage 3a -Cr at 1.89 which is around baseline # HTN -continue home BP meds # HLD -continue statin # gout -continue allopurinol Dispo: Pending clearing of blood cultures, determination of strep species and echo findings. Will likely need GARY. Quality VTE Deep Vein Thrombosis/Pulmonary Embolism Present on Admission: No
[2023-09-06] MEDS: BUDESONIDE 0.5 MG/2 ML NEB INH (20:41)
[2023-09-06] MEDS: ACETAMINOPHEN 325 MG TABLET 650 MG PO (21:40)
[2023-09-07] VITALS (13 sets, daily range): BP systolic 143–161; BP diastolic 57–65; PULSE 65–80; RESP 17–20; TEMP 36.1–36.5; O2SAT 91–97
[2023-09-07] MEDS: WARFARIN 2.5 MG TABLET PO ×2 (06:46→16:59)
--- NOTE | 2023-09-07 08:01 | PM.PN.1 ---
Subjective Subjective Interval history: He feels better today and would like to go home. He has 4/4 blood cultures positive for strep species, ID is pending. He presented with rigors and fatigue. He also had a leukocytosis. He denies cough, diarrhea, abdominal pain, urinary symptoms, dental issues, or skin issues. Will likely need to transfer for GARY (R/O endocarditis or pacer lead infection). Exam Vital Signs (past 8 hours): - 09/07/23 01:06 09/07/23 04:28 Temperature 96.9 F L Pulse Rate 65 Respiratory Rate 20 Blood Pressure 143/57 H Pulse Oximetry 91 96 Oxygen Delivery Method Room Air Oxygen Flow Rate 0 Fraction of Inspired Oxygen 28 SaO2/FiO2 Ratio 328 Oxygen Delivery Method Room Air Oxygen Flow Rate 0 Narrative Exam Narrative: NAD, alert and oriented. Fluent speech. Lungs are clear, normal rate and effort. Heart is regular, no murmur gallop or rub. Abdomen is soft, non distended. Extremities are free of edema. Objective Labs 09/06/23 04:54 09/06/23 04:54 [facility] Medical History Urinary incontinence with continuous leakage Hematuria History of UTI History of malignant neoplasm of prostate Hydronephrosis, left Left nephrolithiasis History of kidney stones History of high blood pressure Hx of gout Hx of congestive heart failure Shingles Surgical History History of prostate surgery Hx of cholecystectomy Hx of appendectomy Social History marital status: number of children: 0 household members: spouse Smoking Status: Former smoker alcohol intake: current caffeine: Yes Assessment & Plan Assessment & Plan narrative: # strep bacteremia (4/4, 2 sets) of unknown source, present on admission and active. -presented with rigors and fevers -blood cultures positive 4/4 for strep species -stopped Zosyn, started Rocephin 2g daily 5. -source unknown, patient has no lines, no wounds and no dental issues or recent dental work -repeat blood cultures in AM -TTE to look for endocarditis, negative, -spoke with ID (Casey) and pt will likely need GARY given no clear source, has pacemaker which could be nidus of infection # COPD, present on admission and stable. -not in exacerbation -inhaler PRN # paroxysmal A-fib, present on admission and stable. -warfarin per pharmacy -continue coreg # CKD stage 3a, present on admission and stable. -Cr at 1.89 which is around baseline # HTN, present on admission and stable. -continue home BP meds # HLD, present on admission and stable. -continue statin # gout, present on admission and stable. -continue allopurinol Dispo: Pending clearing of blood cultures, determination of strep species and echo findings. Will likely need GARY. Quality VTE Deep Vein Thrombosis/Pulmonary Embolism Present on Admission: No
[2023-09-07] MEDS: NIFEdipine 30 MG TAB ER 60 MG PO (09:23)
[2023-09-07] MEDS: allopurinoL 100 MG TABLET PO (09:23)
[2023-09-07] MEDS: carvediloL 12.5 MG TABLET PO ×2 (09:23→20:21)
[2023-09-07] MEDS: ATORVASTATIN 20 MG TABLET 40 MG PO (09:23)
[2023-09-07] MEDS: LOSARTAN 50 MG TABLET PO ×2 (09:23→20:20)
[2023-09-07] MEDS: BUDESONIDE 0.5 MG/2 ML NEB INH ×2 (09:54→21:51)
[2023-09-07 10:10] LABS: Add Manual Diff / Slide Review NO; Basophils Absolute Auto 0 /uL (0-100); Basophils Percent Auto 0.9 % (0-2); Eosinophils Absolute Auto 200 /uL (0-450); Eosinophils Percent Auto 3.8 % (2-4); Hematocrit 31.8 % (41-53); Hemoglobin 10.5 g/dL (13.5-17.5); Lymphocytes Absolute Auto 700 /uL (1100-4500); Lymphocytes Percent Auto 13.9 % (25-40); Mean Corpuscular Hemoglobin 27.9 PG (26-34); Mean Corpuscular Volume 84.5 fL (80-100); Monocytes Absolute Auto 600 /uL (0-900); Monocytes Percent Auto 12.3 % (3-14); Neutrophils Absolute Auto 3400 /uL (1500-7000); Neutrophils Percent Auto 69.1 % (50-75); Platelet Count 114 X10^3/uL (150-400); Red Blood Cell Count 3.77 X10^6/uL (4.5-5.9); Red Cell Distribution Width 17.2 % (11.6-14.8); White Blood Cell Count 4.9 X10^3/uL (4.5-11.0)
[2023-09-07 10:20] LABS: BUN Creatinine Ratio 20.2 (6-22); Blood Urea Nitrogen 40 mg/dL (9-20); Calcium 8.3 mg/dL (8.4-10.2); Carbon Dioxide 23 mmol/L (22-32); Chloride 107 mmol/L (98-107); Estimated Glomerular Filt Rate 32 mL/min (>60); Glucose 132 mg/dL (80-110); HEMOLYSIS 29 (0-50); Potassium 3.8 mmol/L (3.4-5.1); Sodium 137 mmol/L (137-145)
[2023-09-07] MEDS: cefTRIAXone 2,000 MG in SODIUM CHLORIDE 0.9% 100 ML 200 MG IV (15:04)
--- NOTE | 2023-09-07 15:06 | CM.DPC ---
DCP Cont: Per MD, after consultation with ID MD and recommendation of likely GARY to r/o endocarditis vs pacemaker lead infection and MD plans to attempt hospital transfer to [facility] today. Plan: SW to follow closely for attempts at hospital transfer for higher level of care needs. If pt remains, r/o any PT or terminal make up operator IV-Abx needs. BRANDON Hoffman
--- NOTE | 2023-09-07 18:22 | P.DS_ITS ---
History of Present Illness History of Present Illness Chief complaint: Fever Narrative: The pt is a 88 yo with a hx of a-fib on Warfarin and hx of pacemaker who presents to the ER tonight with c/o rigors that have been present for most of the day, tachycaria, heart palpations and dyspnea. In the ER he was noted to have a fever of 100.5, HR 90, and SaO2-86% on RA requiring 2 lpm of oxygen. He denies sputum production, hemoptysis, but reports some abd pain, mild nausea, with loose stools. Discharge Providers Provider Date of admission: 09/05/23 20:36 Discharge Date: 09/07/23 Primary care physician: Salima Caputo PA-C Consults: Tele discussion with [facility] Infectious diseases. Discharge provider: Hunter Bashir MD Summary Hospital Course Discharge Diagnosis: # strep bacteremia (/, 2 sets) of unknown source, present on admission and active. -presented with rigors and fevers -blood cultures positive 08/05 for strep species -stopped Zosyn, started Rocephin 2g daily 09/05. -source unknown, patient has no lines, no wounds and no dental issues or recent dental work -repeat blood cultures in AM -TTE to look for endocarditis, negative, -spoke with ID (Casey) and pt will likely need GARY given no clear source, has pacemaker which could be nidus of infection # COPD, present on admission and stable. -not in exacerbation -inhaler PRN # paroxysmal A-fib, present on admission and stable. -warfarin per pharmacy -continue coreg # CKD stage 3a, present on admission and stable. -Cr at 1.89 which is around baseline # HTN, present on admission and stable. -continue home BP meds # HLD, present on admission and stable. -continue statin # gout, present on admission and stable. -continue allopurinol Hospital Course: This patient was admitted with malaise and found to have bacteremia. Two sets of 2 were positive for presumed Streptococcus. The case was discussed with Dr. Peña of Infectious Disease at [facility]. A trans thoracic echo was negative for vegetations. She recommended transfer for transesophageal echo and further evaluation. The patient also has a history of a pacemaker. No other source was discovered for his bacteremia. He is improving on IV antibiotics. Status at Discharge Cognitive/behavioral status at discharge: oriented Functional status at discharge: independent ambulation Overall status at discharge: patient is back to baseline Time Spent with Patient Time spent: Greater than 30 minutes Exam Vital Signs (past 8 hours): - 09/07/23 12:00 Temperature 97.7 F Pulse Rate 69 Respiratory Rate 17 Blood Pressure 151/58 H Pulse Oximetry 95 Oxygen Flow Rate 0 Fraction of Inspired Oxygen 28 SaO2/FiO2 Ratio 328 Oxygen Delivery Method Room Air Oxygen Flow Rate 0 Narrative Exam Narrative: NAD, alert and oriented. Fluent speech. Lungs are clear, normal rate and effort. Heart is regular, no murmur gallop or rub. Abdomen is soft, non distended. Extremities are free of edema. Objective Labs 09/07/23 10:00 09/07/23 10:00 Labs: Laboratory Results - last 24 hr 09/07/23 10:00 WBC 4.9 D RBC 3.77 L Hgb 10.5 L Hct 31.8 L MCV 84.5 MCH 27.9 MCHC 33.0 RDW 17.2 H Plt Count 114 L Neut % (Auto) 69.1 Lymph % (Auto) 13.9 L [place] % (Auto) 12.3 Eos % (Auto) 3.8 Baso % (Auto) 0.9 Neut # (Auto) 3400 Lymph # (Auto) 700 L [place] # (Auto) 600 Eos # (Auto) 200 Baso # (Auto) 0 Sodium 137 Potassium 3.8 Chloride 107 Carbon Dioxide 23 BUN 40 H Creatinine 1.98 H Estimated GFR 32 L BUN/Creatinine Ratio 20.2 Glucose 132 H Calcium 8.3 L PFSH Medical History Urinary incontinence with continuous leakage Hematuria History of UTI History of malignant neoplasm of prostate Hydronephrosis, left Left nephrolithiasis History of kidney stones History of high blood pressure Hx of gout Hx of congestive heart failure Shingles Surgical History History of prostate surgery Hx of cholecystectomy Hx of appendectomy Social History marital status: number of children: 0 household members: spouse Smoking Status: Former smoker alcohol intake: current caffeine: Yes Discharge Assessment & Plan Assessment and Plan Assessment: # strep bacteremia (4/4, 2 sets) of unknown source, present on admission and active. -presented with rigors and fevers -blood cultures positive / for strep species -stopped Zosyn, started Rocephin 2g daily 09/05. -source unknown, patient has no lines, no wounds and no dental issues or recent dental work -repeat blood cultures in AM -TTE to look for endocarditis, negative, -spoke with ID (Casey) and pt will likely need GARY given no clear source, has pacemaker which could be nidus of infection # COPD, present on admission and stable. -not in exacerbation -inhaler PRN # paroxysmal A-fib, present on admission and stable. -warfarin per pharmacy -continue coreg # CKD stage 3a, present on admission and stable. -Cr at 1.89 which is around baseline # HTN, present on admission and stable. -continue home BP meds # HLD, present on admission and stable. -continue statin # gout, present on admission and stable. -continue allopurinol Plan of Treatment: Transferred to [facility] for further evaluation of bacteremia. Discharge Plan Discharge Plan Patient Disposition: [facility] Other facility: [facility] Under care of provider: Dr Zuniga Provider Discharge Comment: Stable for transfer to [facility] for further evaluation and bacteremia. Discharge orders & Medications Prescriptions: No Action warfarin 2.5 mg tablet 2.5 mg PO DAILY Rx Instructions: ALTERNATES 1.25MG AND 2.5MG DAILY simvastatin 20 mg tablet 20 mg PO BEDTIME Centrum 18-400 mg-mcg tablet 1 tab PO DAILY tiotropium bromide 1 puff INHALATION DAILY losartan 50 mg tablet 50 mg PO BID fluticasone propion-salmeterol 1 puff INHALATION BID triamcinolone acetonide 0.1 % cream 1 applic TOP TID Qty: 80 0RF albuterol sulfate 90 mcg/actuation HFA aerosol inhaler 2 inh PO Q6H PRN (Reason: for wheezing) Qty: 8.5 12RF carvedilol [Coreg] 12.5 mg tablet 12.5 mg PO BID Qty: 60 0RF Rx Instructions: must administer with a meal/food pantoprazole 40 mg tablet,delayed release (DR/EC) 40 mg PO DAILY nifedipine 30 mg tablet extended release 30 mg PO DAILY atorvastatin 40 mg tablet 40 mg PO DAILY allopurinol 100 mg tablet 100 mg PO DAILY torsemide 40 mg tablet 40 mg PO DAILY Medication counseling provided by Pharmacist: No Follow up/Referrals: Salima Caputo, PAAlli[facility] [Primary Care Provider] - Discharge Health Status Multidrug resistant organism: No MDRO Diet/Activity/Treatments Diet: Regular Liquid consistency: Normal/Thin Discharge Data Primary Care Provider: Salima Caputo Quality VTE Deep Vein Thrombosis/Pulmonary Embolism Present on Admission: No MIPS - DC The patient has a history of heart transplant or Left Ventricular Assist Device (LVAD). If yes, STOP here.: No A. The patient was prescribed or already taking an Angiotensin-Converting Enzyme (LYLE) Inhibitor, or Angiotensin Receptor Emily (ARB).: No
[2023-09-07 20:04] LABS: Influenza A - CEPHEID Flu A NEGATIVE (NEGATIVE); Influenza B - CEPHEID Flu B NEGATIVE (NEGATIVE); Respiratory Syncytial Virus Negative (Negative)
[2023-09-07 20:08] LABS: COVID-19 CEPHEID 4-PLEX PCR Negative (Negative)
--- NOTE | 2023-09-07 21:43 | PC.NURSE ---
[id number] Called to give report to [facility] & talked to Arlen PURI. Report given & awaiting for transport to pick up driver patient.
--- NOTE | 2023-09-07 22:16 | PC.NURSE ---
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 Leaving to [facility] @ this time.
== END 2023-09-07 22:17 | disposition short-term general hospital (02) | DRG 871 ==
LOC: ED 20:11 → AC 20:37
PROVIDERS: Emergency Medicine; Hospitalist; Admitting Provider Internal Medicine; Emergency Provider Emergency Medicine; PCP Physician Assistant; Referring Provider Emergency Medicine; Visit Provider Internal Medicine
DX: A40.8 Other streptococcal sepsis (principal); K85.90 Acute pancreatitis without necrosis or infection, unspecified; J44.9 Chronic obstructive pulmonary disease, unspecified; I48.0 Paroxysmal atrial fibrillation; I12.9 Hypertensive chronic kidney disease with stage 1 through stage 4 chronic kidney disease, or unspecified chronic kidney disease; N18.31 Chronic kidney disease, stage 3a; E78.5 Hyperlipidemia, unspecified; M10.9 Gout, unspecified; B95.4 Other streptococcus as the cause of diseases classified elsewhere; Z87.891 Personal history of nicotine dependence; Z95.0 Presence of cardiac pacemaker; Z79.01 Long term (current) use of anticoagulants
CPT/HCPCS: 0241U; 36415; 71045; 80048; 80053; 81001; 82550; 83605; 83690; 83880; 84145; 84484; 85025; 85610; 85730; 87040; 87077; 87086; 87154; 87186; 87633; 93005; 93306; 94640; 94760; 96365; 96367; 96375; 99284; 99285; A9270; J0136; J0696; J2543; J7613

== ENCOUNTER → 2023-09-18 20:21 | Outpatient (ROUT) | payer MEDICARE, SELFPAY ==
[2023-09-05 20:50] VITALS: BMI 30.8
[2023-09-18 20:28] LABS: Add Manual Diff / Slide Review NO; Basophils Absolute Auto 100 /uL (0-100); Basophils Percent Auto 1.1 % (0-2); Eosinophils Absolute Auto 300 /uL (0-450); Eosinophils Percent Auto 3.3 % (2-4); Hematocrit 31.5 % (41-53); Hemoglobin 10.4 g/dL (13.5-17.5); Lymphocytes Absolute Auto 900 /uL (1100-4500); Lymphocytes Percent Auto 9.9 % (25-40); Mean Corpuscular HGB Conc 33.1 % (30-36); Mean Corpuscular Hemoglobin 28.1 PG (26-34); Mean Corpuscular Volume 84.9 fL (80-100); Monocytes Absolute Auto 700 /uL (0-900); Monocytes Percent Auto 8.2 % (3-14); Neutrophils Absolute Auto 6700 /uL (1500-7000); Neutrophils Percent Auto 77.5 % (50-75); Platelet Count 175 X10^3/uL (150-400); Red Blood Cell Count 3.71 X10^6/uL (4.5-5.9); White Blood Cell Count 8.7 X10^3/uL (4.5-11.0)
[2023-09-18 20:39] LABS: Alanine Aminotransferase 24 IU/L (<50); Albumin 3.8 g/dL (3.5-5.0); Albumin Globulin Ratio 1.4 (1.0-2.8); Alkaline Phosphatase 83 U/L (38-126); Aspartate Aminotransferase 22 IU/L (17-59); BUN Creatinine Ratio 21.1 (6-22); Bilirubin Total 0.3 mg/dL (0.2-1.3); Blood Urea Nitrogen 36 mg/dL (9-20); Calcium 8.7 mg/dL (8.4-10.2); Carbon Dioxide 25 mmol/L (22-32); Chloride 109 mmol/L (98-107); Estimated Glomerular Filt Rate 39 mL/min (>60); Globulin 2.8 g/dL (1.7-4.1); Glucose 153 mg/dL (80-110); HEMOLYSIS < 15 (0-50); Potassium 3.9 mmol/L (3.4-5.1); Sodium 142 mmol/L (137-145); Total Protein 6.6 g/dL (6.3-8.2)
== END ==
PROVIDERS: PCP Physician Assistant; Visit Provider Internal Medicine Infectious Disease
DX: R78.81 Bacteremia (principal); B95.5 Unspecified streptococcus as the cause of diseases classified elsewhere
CPT/HCPCS: 80053; 85025

== ENCOUNTER → 2024-01-25 09:09 | Outpatient (CLI) | payer MEDICARE, SELFPAY ==
[2023-09-05 20:50] VITALS: BMI 30.8
[2024-01-25 10:29] LABS: BUN Creatinine Ratio 24.4 (6-22); Blood Urea Nitrogen 47 mg/dL (9-20); Calcium 8.8 mg/dL (8.4-10.2); Carbon Dioxide 25 mmol/L (22-32); Chloride 106 mmol/L (98-107); Cholesterol 107 mg/dL (140-199); Estimated Glomerular Filt Rate 33 mL/min (>60); Glucose 103 mg/dL (80-110); HDL Cholesterol 44 mg/dL (40-60); HEMOLYSIS < 15 (0-50); LDL Cholesterol Calculated 43 mg/dL (<100); Potassium 4.6 mmol/L (3.4-5.1); Sodium 140 mmol/L (137-145); Triglycerides 100 mg/dL (35-150)
[2024-01-25 10:37] LABS: NT-proBNP (BNP-Adult 18+) 12600 pg/mL (<450)
== END ==
PROVIDERS: PCP Physician Assistant; Referring Provider Nurse Practitioner Acute Care; Visit Provider Nurse Practitioner Acute Care
DX: I50.31 Acute diastolic (congestive) heart failure (principal); E78.5 Hyperlipidemia, unspecified
CPT/HCPCS: 36415; 80048; 80061; 83880

== ENCOUNTER → 2024-02-05 10:54 | Outpatient (CLI) | payer MEDICARE, SELFPAY ==
[2023-09-05 20:50] VITALS: BMI 30.8
[2024-02-05 13:03] LABS: BUN Creatinine Ratio 28.9 (6-22); Blood Urea Nitrogen 61 mg/dL (9-20); Calcium 8.9 mg/dL (8.4-10.2); Carbon Dioxide 26 mmol/L (22-32); Chloride 105 mmol/L (98-107); Estimated Glomerular Filt Rate 30 mL/min (>60); Glucose 181 mg/dL (80-110); HEMOLYSIS < 15 (0-50); Magnesium 2.1 mg/dL (1.6-2.3); Potassium 3.8 mmol/L (3.4-5.1); Sodium 140 mmol/L (137-145)
[2024-02-05 13:36] LABS: Thyroid Stimulating Hormone 2.18 uIU/mL (0.47-4.68)
== END ==
PROVIDERS: PCP Physician Assistant; Referring Provider Internal Medicine Cardiovascular Disease; Visit Provider Internal Medicine Cardiovascular Disease
DX: I50.32 Chronic diastolic (congestive) heart failure (principal); I27.81 Cor pulmonale (chronic)
CPT/HCPCS: 36415; 80048; 83735; 84443

== ENCOUNTER → 2024-03-15 10:57 | Outpatient (CLI) | payer MEDICARE, SELFPAY ==
[2023-09-05 20:50] VITALS: BMI 30.8
[2024-03-15 12:27] LABS: BUN Creatinine Ratio 26.8 (6-22); Blood Urea Nitrogen 59 mg/dL (9-20); Calcium 8.8 mg/dL (8.4-10.2); Carbon Dioxide 25 mmol/L (22-32); Chloride 106 mmol/L (98-107); Estimated Glomerular Filt Rate 28 mL/min (>60); Glucose 170 mg/dL (80-110); HEMOLYSIS < 15 (0-50); Potassium 3.9 mmol/L (3.4-5.1); Sodium 140 mmol/L (137-145)
== END ==
PROVIDERS: PCP Physician Assistant; Referring Provider Nurse Practitioner Acute Care; Visit Provider Nurse Practitioner Acute Care
DX: I50.32 Chronic diastolic (congestive) heart failure (principal)
CPT/HCPCS: 36415; 80048

== ENCOUNTER → 2024-04-01 07:34 | Outpatient (CLI) | payer MEDICARE, SELFPAY ==
[2023-09-05 20:50] VITALS: BMI 30.8
--- NOTE | 2024-04-01 | DI.ECHO.S_ITS ---
[facility]---------+ [facility] : : [id number] : [place] : : [id number] : : Phone: [phone] Echocardiogram Report + + :Name: RYAN CANELA Study Date: 04/01/2024 Height: 70 in : :Hospital ReadingLocation: Weight: 220 lb : : Gender: Male BSA: 2.2 m2 : :: 1935 Age: 88 yrs BP: 145/63 mmHg: :Reason For Study: DIASTOLIC HEART FAILURE, COR PULMONALE : :Ordering Physician: BOBBY, : :CANDE Performed By: Pramod Neff : :Referring: CANDE ROSALES : + + Interpretation Summary Left ventricular wall thickness is mildly increased. The ejection fraction is estimated to be 55-60%. The interventricular septum is flattened, consistent with a right ventricular pressure/volume condition. Diastolic function could not be accurately assessed due to paced rhythm. The right ventricle is moderately dilated. Right ventricular systolic function is mild to moderately reduced. There is severe biatrial enlargement. There is moderate mitral regurgitation. There is a well seated, normal functioning bioprosthetic aortic valve present with amild to moderate paravalvular leak. There is severe tricuspid regurgitation. The right ventricular systolic pressure is estimated to be at least 114 mmHg based on an estimated right atrial pressure of 15 mm Hg. The ascending aorta is mildly enlarged, 3.8 cm. There is a small pericardial effusion noted. There are no echocardiographic indications of cardiac tamponade. Compared to the prior study dated 09/06/2023, the right ventricular systolic function has decreased, the tricuspid regurgitation and PA systolic pressure have increased. Procedure: A two-dimensional transthoracic echocardiogram with color flow and Doppler was performed. The study quality was technically good. Comparison is made with the echocardiogram of 09/06/2023. Intermittent V pacing. Left Ventricle: The left ventricle is normal in size. Left ventricular wall thickness is mildly increased. There is no ventricular septal defect visualized. The ejection fraction is estimated to be 55-60%. There is a mild dyssynchronous contraction pattern due to the paced rhythm. The interventricular septum is flattened, consistent with a right ventricular pressure/volume condition. Diastolic function could not be accurately assessed due to paced rhythm. Right Ventricle: The right ventricle is moderately dilated. There is a pacemaker lead in the right ventricle. Right ventricular systolic function is mild to moderately reduced. Atria: There is severe biatrial enlargement. There is a catheter/pacemaker lead seen in the right atrium. Mitral Valve: The mitral valve leaflets are mildly calcified. There is mild mitral annular calcification. There is moderate mitral regurgitation. 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 The peak aortic velocity is 2.1 m/sec. The aortic valve mean gradient is 11 mmHg. Mild to moderate paravalvular leak. Tricuspid Valve: The tricuspid valve is normal. There is severe tricuspid regurgitation. The right ventricular systolic pressure is estimated to be at least 114 mmHg based on an estimated right atrial pressure of 15 mm Hg. Pulmonic Valve: The pulmonic valve is normal in structure and function. There is trace pulmonic regurgitation. Great Vessels: The aortic root is normal size. The ascending aorta is mildly enlarged. Moderate pulmonary artery dilation. The IVC is dilated (diameter is greater than 2.1 cm) and it collapses less than 50% with a sniff. This suggests a high right atrial pressure of 15 mm Hg. Pericardium/ Pleura There is a small pericardial effusion noted. There are no echocardiographic indications of cardiac tamponade. There is no pleural effusion. MMode/2D Measurements & Calculations LVIDd: 5.8 cm LVOT diam: 2.0 cm LVIDs: 3.7 cm asc Aorta Diam: 3.8 cm FS: 36.0 % EPSS: 1.7 cm IVSd: 1.3 cm LVPWd: 1.3 cm LV mallory. diameter/BSA (cm/m^2): 2.7 LV sys. diameter/BSA (cm/m^2): 1.7 LA A2 area: 33.6 cm2 RA long axis: 7.7 cm LA A4 area: 39.0 cm2 RA area: 33.7 cm2 LA length (vol): 8.0 cm RA vol: 125.5 ml LA vol: 138.5 ml RA : 57.7 ml/m2 LA vol index: 63.7 ml/m2 IVC diam: 2.6 cm RVD1 (basal): 4.5 cm RVD2 (mid): 4.3 cm TAPSE: 1.6 cm Doppler Measurements & Calculations Ao V2 max: 208.5 cm/sec LVOT Max Laurent: 98.3 cm/sec Ao V2 mean: 150.3 cm/sec LV V1 max P.9 mmHg Ao max P.4 mmHg LV V1 VTI: 21.6 cm Ao mean P.1 mmHg BLANQUITA(I,D): 1.3 cm2 Ao V2 VTI: 52.1 cm BLANQUITA(V,D): 1.5 cm2 sev ratio: 0.42 BLANQUITA indexed to BSA (cm^2/m^2): 0.60 AI P1/2t: 453.6 msec AI dec slope: 306.8 cm/sec2 MV E max laurent: 109.8 cm/sec TR max laurent: 498.4 cm/sec MV A max laurent: 31.4 cm/sec TR max P.4 mmHg MV E/A: 3.5 PA V2 max: 77.6 cm/sec Med Peak E' Laurent: 3.5 cm/sec PA V2 mean: 56.5 cm/sec E/E' med: 31.7 PA mean P.4 mmHg Lat Peak E' Laurent: 9.4 cm/sec PA pr(Accel): 48.2 mmHg E/E' lat: 11.6 E/e' average: 21.7 MV dec time: 0.16 sec MR ERO: 0.09 cm2 MR PISA: 1.6 cm2 SV(LVOT): 67.8 ml MR flow rate: 57.9 cm3/sec MR PISA radius: 0.51 cm Reading Physician:02:17 PM
== END ==
PROVIDERS: PCP Physician Assistant; Referring Provider Nurse Practitioner Acute Care; Visit Provider Nurse Practitioner Acute Care
DX: I08.1 Rheumatic disorders of both mitral and tricuspid valves (principal); T82.03XA Leakage of heart valve prosthesis, initial encounter; I77.89 Other specified disorders of arteries and arterioles; I31.39 Other pericardial effusion (noninflammatory); I27.81 Cor pulmonale (chronic); I50.32 Chronic diastolic (congestive) heart failure; Z95.2 Presence of prosthetic heart valve; Z95.0 Presence of cardiac pacemaker
CPT/HCPCS: 93306

== ENCOUNTER → 2024-05-26 11:11 | Outpatient (CLI) | payer MEDICARE, SELFPAY ==
[2023-09-05 20:50] VITALS: BMI 30.8
[2024-05-26 12:15] LABS: Hematocrit 36.6 % (41-53); Hemoglobin 11.9 g/dL (13.5-17.5)
[2024-05-26 12:45] LABS: HEMOLYSIS < 15 (0-50); Iron 67 ug/dL (49-181)
[2024-05-26 12:48] LABS: Albumin 3.6 g/dL (3.5-5.0); BUN Creatinine Ratio 30.1 (6-22); Blood Urea Nitrogen 58 mg/dL (9-20); Calcium 8.7 mg/dL (8.4-10.2); Carbon Dioxide 27 mmol/L (22-32); Chloride 107 mmol/L (98-107); Estimated Glomerular Filt Rate 33 mL/min (>60); Glucose 124 mg/dL (80-110); HEMOLYSIS < 15 (0-50); Magnesium 1.8 mg/dL (1.6-2.3); Phosphorous 3.5 mg/dL (2.3-3.7); Potassium 4.2 mmol/L (3.4-5.1); Sodium 141 mmol/L (137-145)
[2024-05-26 12:58] LABS: Percent Iron Saturation 26 % (20-50); Total Iron Binding Capacity 253 ug/dL (261-462); Transferrin 200 mg/dL (206-381)
[2024-05-26 13:25] LABS: Ferritin 45 ng/mL (18-464)
[2024-05-26 14:02] LABS: Creatinine Urine Random 131.05 mg/dL; Protein (Total) Urine Random 164 mg/dL (0-12); Protein Creatinine Ratio Urine 1.25 GRAM/24H
[2024-05-26 14:21] LABS: Vitamin D 25 Hydroxy (D3) 65.5 ng/mL (30.0-100.0)
[2024-05-27 07:39] LABS: Parathyroid Hormone Int 130 pg/mL (15-65)
== END ==
PROVIDERS: PCP Physician Assistant; Referring Provider Internal Medicine Nephrology; Visit Provider Internal Medicine Nephrology
DX: I48.0 Paroxysmal atrial fibrillation (principal); I45.10 Unspecified right bundle-branch block; N18.32 Chronic kidney disease, stage 3b; J44.9 Chronic obstructive pulmonary disease, unspecified; I35.0 Nonrheumatic aortic (valve) stenosis; I27.21 Secondary pulmonary arterial hypertension; I51.89 Other ill-defined heart diseases; I27.81 Cor pulmonale (chronic); I12.9 Hypertensive chronic kidney disease with stage 1 through stage 4 chronic kidney disease, or unspecified chronic kidney disease
CPT/HCPCS: 36415; 80069; 82306; 82570; 82728; 83540; 83550; 83735; 83970; 84156; 85014; 85018

== ENCOUNTER → 2024-06-07 16:27 | Outpatient (CLI) | payer MEDICARE, SELFPAY ==
[2023-09-05 20:50] VITALS: BMI 30.8
[2024-06-07 17:26] LABS: COVID-19 CEPHEID 4-PLEX PCR Negative (Negative); Influenza A - CEPHEID Flu A NEGATIVE (NEGATIVE); Influenza B - CEPHEID Flu B NEGATIVE (NEGATIVE); Respiratory Syncytial Virus POSITIVE (Negative)
== END ==
PROVIDERS: PCP Physician Assistant; Visit Provider Nurse Practitioner Family
DX: R05.1 Acute cough (principal)
CPT/HCPCS: 0241U

== ENCOUNTER 2024-06-07 16:43 | Inpatient (IN) | payer MEDICARE, SELFPAY ==
[2023-09-05 20:50] VITALS: BMI 30.8
[2024-06-07] VITALS (20 sets, daily range): BP systolic 158–186; BP diastolic 58–91; PULSE 62–76; RESP 19–35; TEMP 35.7–36.5; O2SAT 88–96; BMI 32.0
--- NOTE | 2024-06-07 17:08 | EKG_ITS ---
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
[2024-06-07 17:33] LABS: INR 3.8 (0.9-1.3); Prothrombin Time 41.8 SECONDS (9.4-12.5)
[2024-06-07 17:35] LABS: Add Manual Diff / Slide Review NO; Basophils Absolute Auto 0 /uL (0-100); Basophils Percent Auto 0.5 % (0-2); Eosinophils Absolute Auto 0 /uL (0-450); Eosinophils Percent Auto 0.6 % (2-4); Hematocrit 38.7 % (41-53); Hemoglobin 12.4 g/dL (13.5-17.5); Lymphocytes Absolute Auto 700 /uL (1100-4500); Lymphocytes Percent Auto 9.8 % (25-40); Mean Corpuscular HGB Conc 32.2 % (30-36); Mean Corpuscular Hemoglobin 26.8 PG (26-34); Mean Corpuscular Volume 83.4 fL (80-100); Monocytes Absolute Auto 700 /uL (0-900); Monocytes Percent Auto 9.6 % (3-14); Neutrophils Absolute Auto 5500 /uL (1500-7000); Neutrophils Percent Auto 79.5 % (50-75); Platelet Count 134 X10^3/uL (150-400); Red Blood Cell Count 4.64 X10^6/uL (4.5-5.9); White Blood Cell Count 6.9 X10^3/uL (4.5-11.0)
[2024-06-07 17:39] LABS: Alanine Aminotransferase 24 IU/L (<50); Albumin 3.6 g/dL (3.5-5.0); Albumin Globulin Ratio 1.2 (1.0-2.8); Alkaline Phosphatase 72 U/L (38-126); Aspartate Aminotransferase 31 IU/L (17-59); BUN Creatinine Ratio 37.4 (6-22); Bilirubin Total 0.7 mg/dL (0.2-1.3); Blood Urea Nitrogen 82 mg/dL (9-20); Calcium 8.2 mg/dL (8.4-10.2); Carbon Dioxide 25 mmol/L (22-32); Chloride 108 mmol/L (98-107); Estimated Glomerular Filt Rate 29 mL/min (>60); Glucose 105 mg/dL (80-110); HEMOLYSIS 39 (0-50); Lactate (Lactic Acid) 1.2 mmol/L (0.7-2.1); Potassium 3.5 mmol/L (3.4-5.1); Sodium 141 mmol/L (137-145); Total Protein 6.6 g/dL (6.3-8.2)
--- NOTE | 2024-06-07 17:49 | ED.SOB ---
HPI - SOB/Dyspnea <Vivek Fuentes MD - Last Filed: 06/10/24 20:48> General Chief Complaint: Shortness of Breath/Dyspnea Stated Complaint: CHF concerns from [facility] Time Seen by Provider: 06/07/24 17:15 Source: patient Mode of arrival: Ambulatory Limitations: no limitations History of Present Illness HPI Narrative: Patient is sent here by walk-in clinic for shortness of breath wet cough and decreasing stamina. Patient is not on home oxygen. Has history of CHF. He states he does not feel that this is CHF. Has chronic leg swelling which is not new. He tested positive for RSV. His was admitted here for pneumonia 1 month ago while he visited her. Patient denies any chest pain. Related Data Home Medications Medication Instructions Recorded Confirmed multivitamin-ferrous 1 tab PO DAILY 12/07/18 06/07/24 fumarate-folic acid 18 mg-400 mcg tablet (Centrum) warfarin 2.5 mg tablet 2.5 mg PO DAILY 12/07/18 06/07/24 allopurinol 100 mg tablet 50 mg PO DAILY 04/16/22 06/07/24 atorvastatin 40 mg tablet 40 mg PO DAILY 02/19/23 06/07/24 carvedilol 25 mg tablet 25 mg PO BID 06/07/24 06/07/24 empagliflozin 10 mg tablet 10 mg PO DAILY 06/07/24 06/07/24 (Jardiance) potassium chloride 20 mEq 20 meq PO DAILY 06/07/24 06/07/24 tablet,extended release torsemide 20 mg tablet 40 mg PO DAILY 06/07/24 06/08/24 Previous Rx's Medication Instructions Recorded albuterol sulfate 90 mcg/actuation 2 inh PO Q6H PRN for wheezing #8.5 04/10/23 aerosol inhaler grams doxycycline hyclate 100 mg tablet 100 mg PO BID #10 tabs 06/10/24 Allergies Allergy/AdvReac Type Severity Reaction Status Date / Time No Known Drug Allergies Allergy Verified 06/07/24 16:26 Review of Systems <Vivek Fuentes MD - Last Filed: 06/10/24 20:48> Review of Systems Narrative: GENERAL: Negative chills, positive fatigue, malaise, negative fever, sweats. HEENT: Negative sinus pain, ear pain, sore throat RESPIRATORY: Positive dyspnea, cough CARDIOVASCULAR: Negative chest pain, palpitations GASTROINTESTINAL: Negative nausea, vomiting, abdominal pain : Negative dysuria, frequency, hematuria MUSCULOSKELETAL: Negative muscle or bony pain SKIN: Negative rash, skin lesions NEUROLOGIC: Negative weakness, numbness ROS Unobtainable: All systems reviewed & are unremarkable except as noted in HPI and below Patient History <Vivek Fuentes MD - Last Filed: 06/10/24 20:48> Medical History Urinary incontinence with continuous leakage Hematuria History of UTI History of malignant neoplasm of prostate Hydronephrosis, left Left nephrolithiasis History of kidney stones History of high blood pressure Hx of gout Hx of congestive heart failure Shingles Surgical History History of prostate surgery Hx of cholecystectomy Hx of appendectomy Social History marital status: number of children: 0 household members: spouse Smoking Status: Former smoker alcohol intake: current caffeine: Yes Smoking Status: Former smoker alcohol intake frequency: holidays/special occasions only Exam <Vivek Fuentes MD - Last Filed: 06/10/24 20:48> Narrative Exam Narrative: GENERAL: in no distress, not toxic not dyspneic HEAD: Normocephalic. EYES: Pupils equal round ENT: Mucous membranes moist. NECK: Trachea midline. CARDIOVASCULAR: Regular rate and rhythm RESPIRATORY: Patient is speaking full sentences however very coarse bilateral lung sounds. No wheezing. Has a very wet cough GASTROINTESTINAL: Abdomen soft, non-tender EXTREMITIES: No gross deformities., chronic 3+ edema on the ankles. Patient states this is not new. Calves are nontender BACK: No flank tenderness. NEURO: AOx4. Clear speech SKIN: Warm and dry PSYCH: Not anxious, is cooperative Initial Vital Signs Initial Vital Signs: Vital Signs Temperature 97.7 F 06/07/24 16:56 Pulse Rate 72 06/07/24 16:56 Respiratory Rate 20 06/07/24 16:56 Blood Pressure 160/69 H 06/07/24 16:56 Pulse Oximetry 95 06/07/24 16:56 Oxygen Delivery Method Room Air 06/07/24 16:56 <Citlali Veras DO - Last Filed: 06/07/24 23:46> Initial Vital Signs Initial Vital Signs: Vital Signs Temperature 97.7 F 06/07/24 16:56 Pulse Rate 72 06/07/24 16:56 Respiratory Rate 20 06/07/24 16:56 Blood Pressure 160/69 H 06/07/24 16:56 Pulse Oximetry 95 06/07/24 16:56 Oxygen Delivery Method Room Air 06/07/24 16:56 Course <Vivek Fuentes MD - Last Filed: 06/10/24 20:48> Orders Ordered: Discontinued Medications Acetaminophen (Acetaminophen 325 Mg Tablet) 650 mg PO Q6H PRN PRN Reason: Fever/Mild Pain (1-3) Albuterol (Albuterol 2.5 Mg/3 Ml Neb (Adult)) 2.5 mg INH Q6H PRN PRN Reason: for wheezing Albuterol (Albuterol 2.5 Mg/3 Ml Neb (Adult)) 2.5 mg INH [id number] PRN PRN Reason: Dyspnea Atorvastatin Calcium (Atorvastatin 20 Mg Tablet) 40 mg PO DAILY [facility] Last Admin: 06/10/24 09:21 Dose: 40 mg Documented By: Admin: 06/09/24 08:46 Dose: 40 mg Documented By: Admin: 06/08/24 08:52 Dose: 40 mg Documented By: ABBI Benzonatate (Benzonatate 100 Mg Capsule) 100 mg PO TID PRN PRN Reason: Cough Last Admin: 06/08/24 11:01 Dose: 100 mg Documented By: ABBI Bisacodyl (Bisacodyl 10 Mg Supp) 10 mg FL DAILY PRN PRN Reason: Constipation Calcium Carbonate (Calcium Carbonate 500 Mg Tab) 1,000 mg PO Q4HR PRN PRN Reason: Dyspepsia Carvedilol (Carvedilol 12.5 Mg Tablet) 25 mg PO BID [facility] Last Admin: 06/10/24 09:19 Dose: 25 mg Documented By: Admin: 06/09/24 21:49 Dose: 25 mg Documented By: Admin: 06/09/24 08:46 Dose: 25 mg Documented By: Admin: 06/08/24 21:58 Dose: 25 mg Documented By: Admin: 06/08/24 08:49 Dose: 25 mg Documented By: Admin: 06/08/24 01:46 Dose: 25 mg Documented By: NATHANAEL Doxycycline Hyclate (Doxycycline Hyclate 100 Mg Tablet) 100 mg PO BID [facility] Last Admin: 06/10/24 09:20 Dose: 100 mg Documented By: Admin: 06/09/24 21:48 Dose: 100 mg Documented By: Admin: 06/09/24 11:59 Dose: 100 mg Documented By: HW Furosemide (Furosemide 40 Mg/4 Ml Vial) 40 mg IV NOW ONE Stop: 06/07/24 19:30 Last Admin: 06/07/24 19:44 Dose: 40 mg Documented By: JOVITA Furosemide (Furosemide 40 Mg/4 Ml Vial) 40 mg IV Q12HR [facility] Last Admin: 06/09/24 11:59 Dose: 40 mg Documented By: Admin: 06/09/24 00:21 Dose: 40 mg Documented By: Admin: 06/08/24 11:01 Dose: 40 mg Documented By: Admin: 06/08/24 01:00 Dose: 40 mg Documented By: CT Furosemide (Furosemide 40 Mg/4 Ml Vial) 40 mg IV Q12H [facility] Last Admin: 06/10/24 06:58 Dose: 40 mg Documented By: CT Hydralazine HCl (Hydralazine 20 Mg/Ml Vial) 10 mg IV Q6HR PRN PRN Reason: SBP>= 160 or DBP >=110 Ceftriaxone Sodium 1,000 mg/ (Sodium Chloride) 100 mls @ 200 mls/hr IV Q24H [facility] Last Admin: 06/10/24 12:08 Dose: 200 mls/hr Documented By: Infusion: 06/09/24 12:45 Dose: Infused Documented By: Admin: 06/09/24 11:59 Dose: 200 mls/hr Documented By: JUDY Ipratropium Trinity (Ipratropium 0.5 Mg/2.5 Ml Neb) 0.5 mg [facility] Ipratropium Trinity (Ipratropium 0.5 Mg/2.5 Ml Neb) 0.5 mg INH Q2H PRN PRN Reason: SHORTNESS OF BREATH Losartan Potassium (Losartan 50 Mg Tablet) 50 mg PO BID [facility] Last Admin: 06/10/24 09:20 Dose: 50 mg Documented By: Admin: 06/09/24 21:48 Dose: 50 mg Documented By: Admin: 06/09/24 08:46 Dose: 50 mg Documented By: Admin: 06/08/24 21:57 Dose: 50 mg Documented By: Admin: 06/08/24 08:52 Dose: 50 mg Documented By: Admin: 06/08/24 01:46 Dose: 50 mg Documented By: NATHANAEL Melatonin (Melatonin 3 Mg Tablet) 9 mg PO BEDTIME PRN PRN Reason: insomnia Multivitamins (Multivitamin 1 Tablet) 1 tab PO DAILY [facility] Last Admin: 06/10/24 09:20 Dose: 1 tab Documented By: Admin: 06/09/24 08:46 Dose: 1 tab Documented By: Admin: 06/08/24 08:52 Dose: 1 tab Documented By: ABBI Naloxone HCl (Naloxone 0.4 Mg/Ml Vial) 0.2 mg IV Q2MIN PRN PRN Reason: Opiate Reversal Nifedipine (Nifedipine 30 Mg Tab Er) 30 mg PO DAILY [facility] Last Admin: 06/10/24 09:20 Dose: 30 mg Documented By: Admin: 06/09/24 08:50 Dose: 30 mg Documented By: Admin: 06/08/24 08:52 Dose: 30 mg Documented By: ABBI Empagliflozin [ Jardiance] 10 Mg Tablet 10 mg PO DAILY [facility] Last Admin: 06/10/24 09:21 Dose: 10 mg Documented By: Admin: 06/09/24 08:47 Dose: 10 mg Documented By: Admin: 06/08/24 08:52 Dose: Not Given Documented By: ABBI Sacubitril-Valsartan [Entresto] 49-51 Mg Tablet 49 tab PO AC [facility] Last Admin: 06/08/24 11:02 Dose: Not Given Documented By: Admin: 06/08/24 08:49 Dose: Not Given Documented By: ABBI Sacubitril-Valsartan [Entresto] 49-51 Mg Tablet 49 tab PO BID [facility] Last Admin: 06/10/24 09:21 Dose: 49 tab Documented By: Admin: 06/09/24 21:47 Dose: 49 tab Documented By: Admin: 06/09/24 08:47 Dose: 49 tab Documented By: Admin: 06/08/24 22:00 Dose: 49 tab Documented By: NATHANAEL Sacubitril-Valsartan [Entresto] 49-51 Mg Tablet 1 tab PO BID [facility] Ondansetron HCl (Ondansetron 4 Mg/2 Ml Inj) 4 mg IV Q8HR PRN PRN Reason: Nausea And Vomiting Pantoprazole Sodium (Pantoprazole Dr 40 Mg Tablet) 40 mg PO DAILY [facility] Last Admin: 06/10/24 09:20 Dose: 40 mg Documented By: Admin: 06/09/24 08:46 Dose: 40 mg Documented By: Admin: 06/08/24 08:52 Dose: 40 mg Documented By: ABBI Potassium Chloride (Potassium Chloride 20 Meq Tab) 20 meq PO DAILY [facility] Last Admin: 06/10/24 09:20 Dose: 20 meq Documented By: Admin: 06/09/24 08:46 Dose: 20 meq Documented By: Admin: 06/08/24 08:49 Dose: 20 meq Documented By: ABBI Potassium Chloride (Potassium Chloride 20 Meq Tab) 40 meq PO Q6H [facility] Stop: 06/08/24 15:46 Last Admin: 06/08/24 16:30 Dose: 40 meq Documented By: Admin: 06/08/24 10:44 Dose: 40 meq Documented By: ABBI Potassium Chloride (Potassium Chloride 20 Meq Tab) 40 meq PO NOW ONE Stop: 06/09/24 17:45 Last Admin: 06/09/24 18:59 Dose: 40 meq Documented By: JUDY Warfarin Protocol (Warfarin Per Pharmacy (Inr 2-3)) 1 [place] [facility] [place] [facility] Last Admin: 06/09/24 17:29 Dose: Not Given Documented By: ZIA Vital Signs Vital signs: Vital Signs - 8 hr 06/07/24 16:56 06/07/24 16:58 06/07/24 17:00 Temperature 97.7 F Pulse Rate 72 62 71 Respiratory Rate 20 29 H Blood Pressure 160/69 H Pulse Oximetry 95 94 93 Oxygen Delivery Method Room Air 06/07/24 17:00 06/07/24 17:30 06/07/24 17:30 Temperature Pulse Rate 66 Respiratory Rate 23 Blood Pressure 161/72 H 179/74 H Pulse Oximetry 94 Oxygen Delivery Method 06/07/24 18:08 06/07/24 18:11 06/07/24 18:11 Temperature Pulse Rate 69 63 Respiratory Rate 27 H Blood Pressure 186/91 H Pulse Oximetry 94 Oxygen Delivery Method 06/07/24 18:14 06/07/24 18:30 06/07/24 18:31 Temperature Pulse Rate 76 72 65 Respiratory Rate 28 H 26 H 23 Blood Pressure Pulse Oximetry 88 L 93 94 Oxygen Delivery Method 06/07/24 18:31 06/07/24 19:00 06/07/24 19:00 Temperature Pulse Rate 67 Respiratory Rate 24 Blood Pressure 181/77 H 177/74 H Pulse Oximetry 93 Oxygen Delivery Method Room Air 06/07/24 19:30 06/07/24 19:31 06/07/24 19:31 Temperature Pulse Rate 74 66 Respiratory Rate 35 H 24 Blood Pressure 176/76 H Pulse Oximetry 94 95 Oxygen Delivery Method 06/07/24 20:00 06/07/24 20:00 06/07/24 20:30 Temperature Pulse Rate 67 66 Respiratory Rate 25 H 25 H Blood Pressure 165/74 H Pulse Oximetry 93 94 Oxygen Delivery Method 06/07/24 20:31 06/07/24 20:31 06/07/24 21:00 Temperature Pulse Rate 67 67 Respiratory Rate Blood Pressure 166/74 H Pulse Oximetry 94 94 Oxygen Delivery Method 06/07/24 21:02 06/07/24 21:02 Temperature Pulse Rate 64 Respiratory Rate Blood Pressure 168/73 H Pulse Oximetry 96 Oxygen Delivery Method Room Air <Citlali Veras, DO - Last Filed: 06/07/24 23:46> Orders Ordered: Discontinued Medications Acetaminophen (Acetaminophen 325 Mg Tablet) 650 mg PO Q6H PRN PRN Reason: Fever/Mild Pain (1-3) Albuterol (Albuterol 2.5 Mg/3 Ml Neb (Adult)) 2.5 mg INH Q6H PRN PRN Reason: for wheezing Albuterol (Albuterol 2.5 Mg/3 Ml Neb (Adult)) 2.5 mg INH [id number] PRN PRN Reason: Dyspnea Atorvastatin Calcium (Atorvastatin 20 Mg Tablet) 40 mg PO DAILY [facility] Last Admin: 06/10/24 09:21 Dose: 40 mg Documented By: Admin: 06/09/24 08:46 Dose: 40 mg Documented By: Admin: 06/08/24 08:52 Dose: 40 mg Documented By: ABBI Benzonatate (Benzonatate 100 Mg Capsule) 100 mg PO TID PRN PRN Reason: Cough Last Admin: 06/08/24 11:01 Dose: 100 mg Documented By: ABBI Bisacodyl (Bisacodyl 10 Mg Supp) 10 mg FL DAILY PRN PRN Reason: Constipation Calcium Carbonate (Calcium Carbonate 500 Mg Tab) 1,000 mg PO Q4HR PRN PRN Reason: Dyspepsia Carvedilol (Carvedilol 12.5 Mg Tablet) 25 mg PO BID [facility] Last Admin: 06/10/24 09:19 Dose: 25 mg Documented By: Admin: 06/09/24 21:49 Dose: 25 mg Documented By: Admin: 06/09/24 08:46 Dose: 25 mg Documented By: Admin: 06/08/24 21:58 Dose: 25 mg Documented By: Admin: 06/08/24 08:49 Dose: 25 mg Documented By: Admin: 06/08/24 01:46 Dose: 25 mg Documented By: CT Doxycycline Hyclate (Doxycycline Hyclate 100 Mg Tablet) 100 mg PO BID [facility] Last Admin: 06/10/24 09:20 Dose: 100 mg Documented By: Admin: 06/09/24 21:48 Dose: 100 mg Documented By: Admin: 06/09/24 11:59 Dose: 100 mg Documented By: JUDY Furosemide (Furosemide 40 Mg/4 Ml Vial) 40 mg IV NOW ONE Stop: 06/07/24 19:30 Last Admin: 06/07/24 19:44 Dose: 40 mg Documented By: JOVITA Furosemide (Furosemide 40 Mg/4 Ml Vial) 40 mg IV Q12HR [facility] Last Admin: 06/09/24 11:59 Dose: 40 mg Documented By: Admin: 06/09/24 00:21 Dose: 40 mg Documented By: Admin: 06/08/24 11:01 Dose: 40 mg Documented By: Admin: 06/08/24 01:00 Dose: 40 mg Documented By: CT Furosemide (Furosemide 40 Mg/4 Ml Vial) 40 mg IV Q12H [facility] Last Admin: 06/10/24 06:58 Dose: 40 mg Documented By: CT Hydralazine HCl (Hydralazine 20 Mg/Ml Vial) 10 mg IV Q6HR PRN PRN Reason: SBP>= 160 or DBP >=110 Ceftriaxone Sodium 1,000 mg/ (Sodium Chloride) 100 mls @ 200 mls/hr IV Q24H [facility] Last Admin: 06/10/24 12:08 Dose: 200 mls/hr Documented By: Infusion: 06/09/24 12:45 Dose: Infused Documented By: Admin: 06/09/24 11:59 Dose: 200 mls/hr Documented By: JUDY Ipratropium Trinity (Ipratropium 0.5 Mg/2.5 Ml Neb) 0.5 mg INH Q4HRWA [facility] Ipratropium Trinity (Ipratropium 0.5 Mg/2.5 Ml Neb) 0.5 mg INH Q2H PRN PRN Reason: SHORTNESS OF BREATH Losartan Potassium (Losartan 50 Mg Tablet) 50 mg PO BID [facility] Last Admin: 06/10/24 09:20 Dose: 50 mg Documented By: Admin: 06/09/24 21:48 Dose: 50 mg Documented By: Admin: 06/09/24 08:46 Dose: 50 mg Documented By: Admin: 06/08/24 21:57 Dose: 50 mg Documented By: Admin: 06/08/24 08:52 Dose: 50 mg Documented By: Admin: 06/08/24 01:46 Dose: 50 mg Documented By: NATHANAEL Melatonin (Melatonin 3 Mg Tablet) 9 mg PO BEDTIME PRN PRN Reason: insomnia Multivitamins (Multivitamin 1 Tablet) 1 tab PO DAILY [facility] Last Admin: 06/10/24 09:20 Dose: 1 tab Documented By: Admin: 06/09/24 08:46 Dose: 1 tab Documented By: Admin: 06/08/24 08:52 Dose: 1 tab Documented By: ABBI Naloxone HCl (Naloxone 0.4 Mg/Ml Vial) 0.2 mg IV Q2MIN PRN PRN Reason: Opiate Reversal Nifedipine (Nifedipine 30 Mg Tab Er) 30 mg PO DAILY [facility] Last Admin: 06/10/24 09:20 Dose: 30 mg Documented By: Admin: 06/09/24 08:50 Dose: 30 mg Documented By: Admin: 06/08/24 08:52 Dose: 30 mg Documented By: ABBI Empagliflozin [ Jardiance] 10 Mg Tablet 10 mg PO DAILY [facility] Last Admin: 06/10/24 09:21 Dose: 10 mg Documented By: Admin: 06/09/24 08:47 Dose: 10 mg Documented By: Admin: 06/08/24 08:52 Dose: Not Given Documented By: ABBI Sacubitril-Valsartan [Entresto] 49-51 Mg Tablet 49 tab PO AC [facility] Last Admin: 06/08/24 11:02 Dose: Not Given Documented By: Admin: 06/08/24 08:49 Dose: Not Given Documented By: ABBI Sacubitril-Valsartan [Entresto] 49-51 Mg Tablet 49 tab PO BID [facility] Last Admin: 06/10/24 09:21 Dose: 49 tab Documented By: Admin: 06/09/24 21:47 Dose: 49 tab Documented By: Admin: 06/09/24 08:47 Dose: 49 tab Documented By: Admin: 06/08/24 22:00 Dose: 49 tab Documented By: CT Sacubitril-Valsartan [Entresto] 49-51 Mg Tablet 1 tab PO BID [facility] Ondansetron HCl (Ondansetron 4 Mg/2 Ml Inj) 4 mg IV Q8HR PRN PRN Reason: Nausea And Vomiting Pantoprazole Sodium (Pantoprazole Dr 40 Mg Tablet) 40 mg PO DAILY [facility] Last Admin: 06/10/24 09:20 Dose: 40 mg Documented By: Admin: 06/09/24 08:46 Dose: 40 mg Documented By: Admin: 06/08/24 08:52 Dose: 40 mg Documented By: ABBI Potassium Chloride (Potassium Chloride 20 Meq Tab) 20 meq PO DAILY [facility] Last Admin: 06/10/24 09:20 Dose: 20 meq Documented By: Admin: 06/09/24 08:46 Dose: 20 meq Documented By: Admin: 06/08/24 08:49 Dose: 20 meq Documented By: ABBI Potassium Chloride (Potassium Chloride 20 Meq Tab) 40 meq PO Q6H [facility] Stop: 06/08/24 15:46 Last Admin: 06/08/24 16:30 Dose: 40 meq Documented By: Admin: 06/08/24 10:44 Dose: 40 meq Documented By: ABBI Potassium Chloride (Potassium Chloride 20 Meq Tab) 40 meq PO NOW ONE Stop: 06/09/24 17:45 Last Admin: 06/09/24 18:59 Dose: 40 meq Documented By: JUDY Warfarin Protocol (Warfarin Per Pharmacy (Inr 2-3)) 1 request [facility]00 [facility] Last Admin: 06/09/24 17:29 Dose: Not Given Documented By: SB Vital Signs Vital signs: Vital Signs - 8 hr 06/07/24 16:56 06/07/24 16:58 06/07/24 17:00 Temperature 97.7 F Pulse Rate 72 62 71 Respiratory Rate 20 29 H Blood Pressure 160/69 H Pulse Oximetry 95 94 93 Oxygen Delivery Method Room Air 06/07/24 17:00 06/07/24 17:30 06/07/24 17:30 Temperature Pulse Rate 66 Respiratory Rate 23 Blood Pressure 161/72 H 179/74 H Pulse Oximetry 94 Oxygen Delivery Method 06/07/24 18:08 06/07/24 18:11 06/07/24 18:11 Temperature Pulse Rate 69 63 Respiratory Rate 27 H Blood Pressure 186/91 H Pulse Oximetry 94 Oxygen Delivery Method 06/07/24 18:14 06/07/24 18:30 06/07/24 18:31 Temperature Pulse Rate 76 72 65 Respiratory Rate 28 H 26 H 23 Blood Pressure Pulse Oximetry 88 L 93 94 Oxygen Delivery Method 06/07/24 18:31 06/07/24 19:00 06/07/24 19:00 Temperature Pulse Rate 67 Respiratory Rate 24 Blood Pressure 181/77 H 177/74 H Pulse Oximetry 93 Oxygen Delivery Method Room Air 06/07/24 19:30 06/07/24 19:31 06/07/24 19:31 Temperature Pulse Rate 74 66 Respiratory Rate 35 H 24 Blood Pressure 176/76 H Pulse Oximetry 94 95 Oxygen Delivery Method 06/07/24 20:00 06/07/24 20:00 06/07/24 20:30 Temperature Pulse Rate 67 66 Respiratory Rate 25 H 25 H Blood Pressure 165/74 H Pulse Oximetry 93 94 Oxygen Delivery Method 06/07/24 20:31 06/07/24 20:31 06/07/24 21:00 Temperature Pulse Rate 67 67 Respiratory Rate Blood Pressure 166/74 H Pulse Oximetry 94 94 Oxygen Delivery Method 06/07/24 21:02 06/07/24 21:02 Temperature Pulse Rate 64 Respiratory Rate Blood Pressure 168/73 H Pulse Oximetry 96 Oxygen Delivery Method Room Air MDM - SOB/Dyspnea <Vivek Fuentes MD - Last Filed: 06/10/24 20:48> Lab Data 06/10/24 04:51 06/10/24 04:51 Labs: Lab Results 06/07/24 06/07/24 Range/Units 17:15 19:00 WBC 6.9 (4.5-11.0) X10^3/uL RBC 4.64 (4.5-5.9) X10^6/uL Hgb 12.4 L (13.5-17.5) g/dL Hct 38.7 L (41-53) % MCV 83.4 (80-100) fL MCH 26.8 (26-34) PG MCHC 32.2 (30-36) % RDW 21.0 H (11.6-14.8) % Plt Count 134 L (150-400) X10^3/uL Neut % (Auto) 79.5 H (50-75) % Lymph % (Auto) 9.8 L (25-40) % [place] % (Auto) 9.6 (3-14) % Eos % (Auto) 0.6 L (2-4) % Baso % (Auto) 0.5 (0-2) % Neut # (Auto) 5500 (6575-2748) /uL Lymph # (Auto) 700 L (1016-5078) /uL [place] # (Auto) 700 (0-900) /uL Eos # (Auto) 0 (0-450) /uL Baso # (Auto) 0 (0-100) /uL RBC Morphology See below Anisocytosis 2+ H Ovalocytes 2+ H Acanthocytes (Spur) 1+ Rouleaux 1+ H PT 41.8 H (9.4-12.5) SECONDS INR 3.8 H (0.9-1.3) Sodium 141 (137-145) mmol/L Potassium 3.5 (3.4-5.1) mmol/L Chloride 108 H (98-107) mmol/L Carbon Dioxide 25 (22-32) mmol/L BUN 82 H (9-20) mg/dL Creatinine 2.19 H (0.66-1.25) mg/dL Estimated GFR 29 L (>60) mL/min BUN/Creatinine Ratio 37.4 H (6-22) Glucose 105 (80-110) mg/dL Lactate 1.2 (0.7-2.1) mmol/L Calcium 8.2 L (8.4-10.2) mg/dL Total Bilirubin 0.7 (0.2-1.3) mg/dL AST 31 (17-59) IU/L ALT 24 (<50) IU/L Alkaline Phosphatase 72 (38-126) U/L Troponin I 0.039 H 0.032 (0.01-0.034) ng/mL NT-Pro-B Natriuret Pep 07735 H (<450) pg/mL Total Protein 6.6 (6.3-8.2) g/dL Albumin 3.6 (3.5-5.0) g/dL Globulin 3.0 (1.7-4.1) g/dL Albumin/Globulin Ratio 1.2 (1.0-2.8) Procalcitonin 0.615 H (<0.5) ng/mL [facility] Narrative Medical decision making narrative: Patient is sent here by walk-in clinic for shortness of breath wet cough and decreasing stamina. Patient is not on home oxygen. Has history of CHF. He states he does not feel that this is CHF. Has chronic leg swelling which is not new. He tested positive for RSV. His was admitted here for pneumonia 1 month ago while he visited her. Patient denies any chest pain. After history and exam CBC CMP troponin BNP CT chest EKG [facility] Medical records reviewed: Walk-in clinic notes prior to arrival Differential considered: Includes but not limited to pneumonia bronchitis CHF Lab Test results independently reviewed as above. Pertinent findings: Positive RSV, WBC 6.9 hemoglobin 12.4 INR 3.8 sodium 141 potassium 3.5 BUN 82 creatinine 2.19, patient has history of CKD, GFR 29 lactic acid 1.2 glucose 105 Troponin 0.039 likely related to renal function BNP 73306 Independently reviewed EKG ventricular paced rhythm rate 62 Imaging studies independently reviewed: See chart Consultations: Treatments: Lasix Re-evaluations: I did inform patient you may be admitted. Discussion: Appropriate for admission for dyspnea CHF RSV, patient 88% room air when ambulating. Diagnosis: CHF RSV 6:00 p.m.: Alfredo: Sign out to Dr Veras, CT imaging is pending. Pulse ox on ambulation road test is pending. Patient may need admission for dyspnea/CHF 1929 Dr. Veras patient signed out to me by Dr. Robles I have seen evaluated patient myself. He has audible rales oxygen variable on room air at rest between 90 92%, when he ambulates he drops to 87- 88% He is positive for RSV suspicion for congestive heart failure with a BNP greater than 15,000 previously it was 12,600. He had an echo March 2024 with an EF of 55-60% diastolic function could not be accurately assessed due to paced rhythm. Patient clinically appears fluid overloaded significant crackles. He was able to find someone to help care for his home <Citlali Veras, DO - Last Filed: 06/07/24 23:46> Lab Data Labs: Lab Results 06/07/24 06/07/24 Range/Units 17:15 19:00 WBC 6.9 (4.5-11.0) X10^3/uL RBC 4.64 (4.5-5.9) X10^6/uL Hgb 12.4 L (13.5-17.5) g/dL Hct 38.7 L (41-53) % MCV 83.4 (80-100) fL MCH 26.8 (26-34) PG MCHC 32.2 (30-36) % RDW 21.0 H (11.6-14.8) % Plt Count 134 L (150-400) X10^3/uL Neut % (Auto) 79.5 H (50-75) % Lymph % (Auto) 9.8 L (25-40) % [place] % (Auto) 9.6 (3-14) % Eos % (Auto) 0.6 L (2-4) % Baso % (Auto) 0.5 (0-2) % Neut # (Auto) 5500 (3898-7385) /uL Lymph # (Auto) 700 L (8041-2056) /uL Scre[place] # (Auto) 700 (0-900) /uL Eos # (Auto) 0 (0-450) /uL Baso # (Auto) 0 (0-100) /uL RBC Morphology See below Anisocytosis 2+ H Ovalocytes 2+ H Acanthocytes (Spur) 1+ Rouleaux 1+ H PT 41.8 H (9.4-12.5) SECONDS INR 3.8 H (0.9-1.3) Sodium 141 (137-145) mmol/L Potassium 3.5 (3.4-5.1) mmol/L Chloride 108 H (98-107) mmol/L Carbon Dioxide 25 (22-32) mmol/L BUN 82 H (9-20) mg/dL Creatinine 2.19 H (0.66-1.25) mg/dL Estimated GFR 29 L (>60) mL/min BUN/Creatinine Ratio 37.4 H (6-22) Glucose 105 (80-110) mg/dL Lactate 1.2 (0.7-2.1) mmol/L Calcium 8.2 L (8.4-10.2) mg/dL Total Bilirubin 0.7 (0.2-1.3) mg/dL AST 31 (17-59) IU/L ALT 24 (<50) IU/L Alkaline Phosphatase 72 (38-126) U/L Troponin I 0.039 H 0.032 (0.01-0.034) ng/mL NT-Pro-B Natriuret Pep 04717 H (<450) pg/mL Total Protein 6.6 (6.3-8.2) g/dL Albumin 3.6 (3.5-5.0) g/dL Globulin 3.0 (1.7-4.1) g/dL Albumin/Globulin Ratio 1.2 (1.0-2.8) Procalcitonin 0.615 H (<0.5) ng/mL Imaging Data CT scan - chest: Radiologist's Impression: PROCEDURE: CT CHEST WO CON INDICATIONS: Dyspnea,chonic cough TECHNIQUE: Noncontrast 5 mm thick sections acquired from the pulmonary apices to the posterior costophrenic angles. 1 mm lung window, 5 mm thick coronal and sagittal and 7 mm axial MIP reformats were then acquired. For radiation dose reduction, the following was used: automated exposure control, adjustment of mA and/or kV according to patient size. COMPARISON: [facility], CR, XR CHEST 1V, 09/05/2023, 16:23. [facility], CT, CT CHEST WO CON, 03/02/2018, 11:03. FINDINGS: Image quality: Diagnostic. Lower Neck: No enlarged lymph nodes. Thyroid: No thyroid nodules which require sonographic follow up, per consensus guidelines. Axillae: No enlarged lymph nodes. Chest Wall: Left chest wall pacemaker lead is in the region of right ventricle. Bones: No aggressive appearing bony lesions. Lungs and Pleura: No pneumothorax or pleural effusions. Scattered atelectasis at bilateral lower lung parker are seen with bronchiectasis and bronchial wall thickening in bilateral mid to lower lung zone. No suspicious pulmonary nodule or mass is seen. Small infiltrate/atelectasis in posterior medial aspect of left lingular segment near left lung base is noted. Benign-appearing tiny 2 mm nodule in lateral right upper lobe is seen series 3, image 114. Heart: Heart size is enlarged. No pericardial effusion. Prosthetic aortic valve is seen. Moderate 2 vessel coronary artery atherosclerotic calcifications are seen. Thoracic Vessels: The aorta and pulmonary arteries demonstrate normal size. Mediastinum and Terri: No enlarged lymph nodes. Esophagus: No wall thickening. No hiatal hernia. Upper Abdomen: Visualized upper abdomen solid organs and bowel loops appear normal. IMPRESSION: 1. Scattered scarring/atelectasis in bilateral mid to lower lung zone with bronchiectasis and bronchial wall thickening concerning for reactive airway disease. Small infiltrate/atelectasis are likely present in posterior medial aspect of left lingular segment and posterior medial aspect of bilateral lung bases. No pleural effusion or pneumothorax. Airway is patent. 2. No mediastinal or hilar lymphadenopathy. Cardiomegaly, no pericardial effusion. 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 Moderate to severe coronary artery atherosclerotic calcifications. 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 Dictated by: Abimael Kelley M.D. on 06/07/2024 at 18:19 [facility] Narrative Medical decision making narrative: Patient is sent here by walk-in clinic for shortness of breath wet cough and decreasing stamina. Patient is not on home oxygen. Has history of CHF. He states he does not feel that this is CHF. Has chronic leg swelling which is not new. He tested positive for RSV. His was admitted here for pneumonia 1 month ago while he visited her. Patient denies any chest pain. After history and exam CBC CMP troponin BNP CT chest EKG [facility] Medical records reviewed: Walk-in clinic notes prior to arrival Differential considered: Includes but not limited to pneumonia bronchitis CHF Lab Test results independently reviewed as above. Pertinent findings: Positive RSV, WBC 6.9 hemoglobin 12.4 INR 3.8 sodium 141 potassium 3.5 BUN 82 creatinine 2.19, patient has history of CKD, GFR 29 lactic acid 1.2 glucose 105 Troponin 0.039 likely related to renal function BNP 94433 Independently reviewed EKG ventricular paced rhythm rate 62 Imaging studies independently reviewed: Consultations: Treatments: Lasix Re-evaluations: Discussion: Diagnosis: 6:00 p.m.: Alfredo: Sign out to Dr Veras, CT imaging is pending. Pulse ox on ambulation road test is pending. Patient may need admission for dyspnea/CHF 1929 Dr. Veras patient signed out to me by Dr. Robles I have seen evaluated patient myself. He has audible rales oxygen variable on room air at rest between 90 92%, when he ambulates he drops to 87- 88% He is positive for RSV suspicion for congestive heart failure with a BNP greater than 15,000 previously it was 12,600. He had an echo March 2024 with an EF of 55-60% diastolic function could not be accurately assessed due to paced rhythm. Patient clinically appears fluid overloaded significant crackles. He was able to find someone to help care for his home Discharge Plan Departure Patient Disposition: Admitted as Observation Clinical Impression: Respiratory syncytial virus (RSV) infection Qualifiers: RSV infection type: unspecified Qualified Code(s): B33.8 - Other specified viral diseases CHF (congestive heart failure) Qualifiers: Heart failure type: unspecified Heart failure chronicity: unspecified Qualified Code(s): I50.9 - Heart failure, unspecified Admit Date/Time: 06/07/24 21:03 Admit Provider: Tom Park
[2024-06-07 17:51] LABS: NT-proBNP (BNP-Adult 18+) 15900 pg/mL (<450); Troponin I 0.039 ng/mL (0.01-0.034)
[2024-06-07 17:53] LABS: Acanthocytes 1+; Anisocytosis 2+; Ovalocytes 2+
[2024-06-07 17:54] LABS: Rouleaux 1+
[2024-06-07 19:35] LABS: Troponin I 0.032 ng/mL (0.01-0.034)
[2024-06-07] MEDS: FUROSEMIDE 40 MG/4 ML VIAL IV (19:44)
--- NOTE | 2024-06-07 20:42 | PC.NURSE ---
1815-patient had ambulation trial with pulse ox and patient desatted to 86-87%, Provider aware
--- NOTE | 2024-06-07 22:10 | DI.ECHO.S_ITS ---
[facility] : : [address] : : [place] : : [id number] : : Phone: [phone] Echocardiogram Report + + :Name: RYAN CANELA Study Date: 06/08/2024 Height: 70 in : :Hospital ReadingLocation: Weight: 223 lb: : Gender: Male BSA: 2.2 m2 : :: 1935 Age: 88 yrs : :Reason For Study: CONGESTIVE HEART FAILURE : :Ordering Physician: RENETTA, : :ALESSANDRA Performed By: Zeenat Jon : :Referring: ALESSANDRA JACKSON : + + Interpretation Summary The left ventricle is normal in size. There is mild-moderate concentric left ventricular hypertrophy. The ejection fraction is estimated to be 50-55%. This is unchanged compared to the previous study. There is a mild dyssynchronous contraction pattern due to the paced rhythm. The right ventricle is moderate to severely dilated. The interventricular septum is flattened, consistent with a right ventricular pressure/volume condition. Right ventricular systolic function is mildly reduced. The right ventricular systolic pressure is estimated to be at least 92 mmHg based on an estimated right atrial pressure of 15 mm Hg. There is severe pulmonary hypertension. The left atrium is severely dilated. The right atrium is moderately dilated. There is mild to moderate mitral annular calcification. There is mild to moderate mitral regurgitation. There is a bioprosthetic aortic valve. There is mild to moderate perivalvular regurgitation around the prosthetic aortic valve. The peak aortic velocity is 2.2 m/sec. There is severe tricuspid regurgitation. The aortic root is normal size. There is a trivial to small pericardial effusion noted. Procedure: A two-dimensional transthoracic echocardiogram with color flow and Doppler was performed. The study quality was technically adequate. Comparison is made with the echocardiogram of 04/01/2024. The heart rate ranged between 51-76 bpm during the study. Left Ventricle: The left ventricle is normal in size. There is mild-moderate concentric left ventricular hypertrophy. The ejection fraction is estimated to be 50-55%. This is unchanged compared to the previous study. There is a mild dyssynchronous contraction pattern due to the paced rhythm. The interventricular septum is flattened, consistent with a right ventricular pressure/volume condition. Diastolic function could not be accurately assessed due to atrial fibrillation. Right Ventricle: The right ventricle is moderate to severely dilated. Right ventricular systolic function is mildly reduced. Atria: The left atrium is severely dilated. The right atrium is moderately dilated. There is a catheter/pacemaker lead seen in the right atrium. There is no Doppler evidence for an interatrial shunt. Mitral Valve: The mitral valve leaflets appear moderately thickened, but open well. The mitral valve leaflets are mildly calcified. There is mild to moderate mitral annular calcification. There is mild to moderate mitral regurgitation. Aortic Valve: There is a bioprosthetic aortic valve. There is mild to moderate perivalvular regurgitation around the prosthetic aortic valve. The peak aortic velocity is 2.2 m/sec. The aortic valve mean gradient is 12 mmHg. Tricuspid Valve: The tricuspid valve leaflets are thin and pliable. There is severe tricuspid regurgitation. The right ventricular systolic pressure is estimated to be at least 92 mmHg based on an estimated right atrial pressure of 15 mm Hg. There is severe pulmonary hypertension. Pulmonic Valve: The pulmonic valve leaflets are thin and pliable; valve motion is normal. There is trace pulmonic regurgitation. Great Vessels: The aortic root is normal size. The dimensions of the ascending aorta are normal. The IVC is dilated (diameter is greater than 2.1 cm) and it collapses less than 50% with a sniff. This suggests a high right atrial pressure of 15 mm Hg. Pericardium/ Pleura There is a trivial to small pericardial effusion noted. There is no pleural effusion. MMode/2D Measurements & Calculations LVIDd: 5.4 cm LVOT diam: 2.0 cm LVIDs: 3.8 cm asc Aorta Diam: 3.4 cm FS: 30.0 % EPSS: 0.93 cm IVSd: 1.1 cm LVPWd: 1.5 cm LV mallory. diameter/BSA (cm/m^2): 2.5 LV sys. diameter/BSA (cm/m^2): 1.7 LA A2 area: 34.3 cm2 RA long axis: 8.1 cm LA A4 area: 39.0 cm2 RA area: 30.8 cm2 LA length (vol): 7.8 cm RA vol: 99.0 ml LA vol: 146.1 ml RA : 45.3 ml/m2 LA vol index: 66.8 ml/m2 IVC diam: 2.6 cm RVD1 (basal): 4.8 cm RVD2 (mid): 4.7 cm TAPSE: 1.5 cm Doppler Measurements & Calculations Ao V2 max: 223.3 cm/sec LVOT Max Laurent: 108.8 cm/sec Ao V2 mean: 153.1 cm/sec LV V1 max P.8 mmHg Ao max P.0 mmHg LV V1 VTI: 23.6 cm Ao mean P.2 mmHg BLANQUITA(I,D): 1.7 cm2 Ao V2 VTI: 43.3 cm BLANQUITA(V,D): 1.5 cm2 sev ratio: 0.54 BLANQUITA indexed to BSA (cm^2/m^2): 0.78 AI P1/2t: 690.8 msec AI dec slope: 175.0 cm/sec2 MV E max laurent: 100.4 cm/sec TR max laurent: 438.0 cm/sec MV A max laurent: 0.36 cm/sec TR max P.7 mmHg MV E/A: 275.2 PA V2 max: 96.3 cm/sec Med Peak E' Laurent: 5.0 cm/sec PA V2 mean: 68.1 cm/sec E/E' med: 20.0 PA mean P.1 mmHg Lat Peak E' Laurent: 8.9 cm/sec PA pr(Accel): 49.9 mmHg E/E' lat: 11.3 E/e' average: 15.7 MV dec time: 0.23 sec MR ERO: 0.15 cm2 MR PISA: 3.0 cm2 SV(LVOT): 73.7 ml MR flow rate: 99.7 cm3/sec MR PISA radius: 0.70 cm Reading Physician:08:36 AM
[2024-06-08] VITALS (11 sets, daily range): BP systolic 143–177; BP diastolic 50–80; PULSE 60–88; RESP 15–20; TEMP 35.6–36.1; O2SAT 93–96; BMI 32.0
--- NOTE | 2024-06-08 00:32 | P.HP_ITS ---
History of Present Illness History of Present Illness Chief complaint: CHF concerns from [facility] Narrative: 88 years old male with history of hypertension, hyperlipidemia, CHF, CKD stage IV presented to the ER with increased shortness of breath, wet cough and generalized weakness in the last several days. Recently diagnosed with RSV. He also has chronic leg swelling. Denies any PND, orthopnea, chest pain, palpitations, nausea, vomiting, abdominal pain, diarrhea or dysuria. Compliant with his home medications. Lives with his who had pneumonia 1 month ago. Laboratory shows positive for RSV, WBC 6.9, hemoglobin 12.4, INR 3.8, lactic acid 1.2, creatinine 2.19, potassium 3.5, blood sugar 105, troponin 0.03, BNP 15,900, EKG ventricular paced rhythm at a rate of 62. CT of the chest shows scattered scarring/atelectasis in the bilateral mid to lower lung zones with bronchiectasis and bronchial wall thickening concerning for reactive airway disease. Cardiomegaly. No mediastinal or hilar lymphadenopathy. The patient has echo in March 2024 with ejection fraction of 55-60% and diastolic dysfunction. Clinically the patient looks fluid overloaded. [facility] Medical History Urinary incontinence with continuous leakage Hematuria History of UTI History of malignant neoplasm of prostate Hydronephrosis, left Left nephrolithiasis History of kidney stones History of high blood pressure Hx of gout Hx of congestive heart failure Shingles Surgical History History of prostate surgery Hx of cholecystectomy Hx of appendectomy Social History marital status: number of children: 0 household members: spouse Smoking Status: Former smoker alcohol intake: current caffeine: Yes Meds Home Medications and Allergies Home Medications Medication Instructions Recorded Confirmed Type multivitamin-ferrous 1 tab PO DAILY 12/07/18 06/07/24 History fumarate-folic acid 18 mg-400 mcg tablet (Centrum) warfarin 2.5 mg tablet 2.5 mg PO DAILY 12/07/18 06/07/24 History allopurinol 100 mg tablet 50 mg PO DAILY 04/16/22 06/07/24 History atorvastatin 40 mg tablet 40 mg PO DAILY 02/19/23 06/07/24 History albuterol sulfate 90 mcg/actuation 2 inh PO Q6H PRN for wheezing #8.5 04/10/23 06/07/24 Rx aerosol inhaler grams carvedilol 25 mg tablet 25 mg PO BID 06/07/24 06/07/24 History empagliflozin 10 mg tablet 10 mg PO DAILY 06/07/24 06/07/24 History (Jardiance) potassium chloride 20 mEq 20 meq PO DAILY 06/07/24 06/07/24 History tablet,extended release torsemide 20 mg tablet 40 mg PO DAILY 06/07/24 06/07/24 History Allergies Allergy/AdvReac Type Severity Reaction Status Date / Time No Known Drug Allergies Allergy Verified 06/07/24 16:26 Review of Systems Review of Systems ROS: Yes All systems reviewed with the patient and are negative except as otherwise documented Constitutional Constitutional: Reports as per HPI and Reports system reviewed and no additional complaints, except as documented Eyes Eyes: Reports as per HPI and Reports system reviewed and no additional complaints, except as documented ENT Ears, Nose, Mouth, and Throat: Yes as per HPI and Yes system reviewed and no additional complaints, except as documented Cardiovascular Cardiovascular: Reports system reviewed and no additional complaints, except as documented Respiratory Respiratory: Reports system reviewed and no additional complaints, except as documented Gastrointestinal Gastrointestinal: Reports system reviewed and no additional complaints, except as documented Genitourinary Genitourinary: Reports system reviewed and no additional complaints, except as documented Musculoskeletal Musculoskeletal: Reports system reviewed and no additional complaints, except as documented, Reports abnormal gait and Reports numbness Neurologic Neurologic: Reports system reviewed and no additional complaints, except as documented, Reports abnormal gait, Reports confusion and Reports numbness Psychiatric Psychiatric: Reports system reviewed and no additional complaints, except as documented and Reports confusion Exam Vital Signs (past 8 hours): - 06/07/24 16:56 06/07/24 16:58 06/07/24 17:00 Temperature 97.7 F Pulse Rate 72 62 71 Respiratory Rate 20 29 H Blood Pressure 160/69 H Pulse Oximetry 95 94 93 Oxygen Delivery Method Room Air Oxygen Flow Rate 06/07/24 17:00 06/07/24 17:30 06/07/24 17:30 Temperature Pulse Rate 66 Respiratory Rate 23 Blood Pressure 161/72 H 179/74 H Pulse Oximetry 94 Oxygen Delivery Method Oxygen Flow Rate 06/07/24 18:08 06/07/24 18:11 06/07/24 18:11 Temperature Pulse Rate 69 63 Respiratory Rate 27 H Blood Pressure 186/91 H Pulse Oximetry 94 Oxygen Delivery Method Oxygen Flow Rate 06/07/24 18:14 06/07/24 18:30 06/07/24 18:31 Temperature Pulse Rate 76 72 65 Respiratory Rate 28 H 26 H 23 Blood Pressure Pulse Oximetry 88 L 93 94 Oxygen Delivery Method Oxygen Flow Rate 06/07/24 18:31 06/07/24 19:00 06/07/24 19:00 Temperature Pulse Rate 67 Respiratory Rate 24 Blood Pressure 181/77 H 177/74 H Pulse Oximetry 93 Oxygen Delivery Method Room Air Oxygen Flow Rate 06/07/24 19:30 06/07/24 19:31 06/07/24 19:31 Temperature Pulse Rate 74 66 Respiratory Rate 35 H 24 Blood Pressure 176/76 H Pulse Oximetry 94 95 Oxygen Delivery Method Oxygen Flow Rate 06/07/24 20:00 06/07/24 20:00 06/07/24 20:30 Temperature Pulse Rate 67 66 Respiratory Rate 25 H 25 H Blood Pressure 165/74 H Pulse Oximetry 93 94 Oxygen Delivery Method Oxygen Flow Rate 06/07/24 20:31 06/07/24 20:31 06/07/24 21:00 Temperature Pulse Rate 67 67 Respiratory Rate Blood Pressure 166/74 H Pulse Oximetry 94 94 Oxygen Delivery Method Oxygen Flow Rate 06/07/24 21:02 06/07/24 21:02 06/07/24 21:30 Temperature Pulse Rate 64 62 Respiratory Rate 26 H Blood Pressure 168/73 H Pulse Oximetry 96 95 Oxygen Delivery Method Room Air Oxygen Flow Rate 06/07/24 21:30 06/07/24 22:00 06/07/24 22:00 Temperature Pulse Rate 70 Respiratory Rate 23 Blood Pressure 183/77 H 182/77 H Pulse Oximetry 95 Oxygen Delivery Method Oxygen Flow Rate 06/07/24 22:30 Temperature 96.2 F L Pulse Rate 65 Respiratory Rate 19 Blood Pressure 158/58 H Pulse Oximetry 94 Oxygen Delivery Method Oxygen Flow Rate 0 Oxygen Delivery Method Room Air Oxygen Flow Rate 0 Const General: cooperative, comfortable and well developed Orientation: alert and oriented x3 HENMT Head: normal to inspection, normocephalic and atraumatic Face and sinus: normal facial exam Mouth: oral mucosae normal and moist mucous membranes Throat: posterior oropharynx normal Eyes General: appearance normal, both eyes and all related structures Pupils: PERRL EOM: EOM intact bilaterally Neck Neck: normal visual inspection and full ROM Chest Chest: normal inspection of the chest Resp Effort & Inspection: normal respiratory effort and able to speak in complete sentences Auscultation: clear to auscultation bilaterally Cardio Palpation: normal PMI Rate: regular rate Rhythm: regular rhythm Heart Sounds: S1 normal and S2 normal GI Inspection: normal to inspection Palpation: soft and no hepatosplenomegaly Auscultation: normal bowel sounds Skin General: no rashes or lesions noted Lesions: no lesions Rashes: no rashes Trauma: no lacerations or abrasions Neuro General: patient alert, patient awake, patient oriented x3 and no focal motor deficits Cranial Nerves: CN's II-XI intact bilaterally Cognition: normal cognition Speech: speech normal Gait: normal gait Motor: muscle tone normal throughout Sensory Exam: no sensory deficits noted Extrem General: full ROM and no calf tenderness Psych Appearance: grossly normal Mental Status: mental status grossly normal Speech and Movement: speech and movement normal Objective Labs 06/07/24 17:15 06/07/24 17:15 Labs: Laboratory Results - last 24 hr 06/07/24 06/07/24 17:15 19:00 WBC 6.9 RBC 4.64 Hgb 12.4 L Hct 38.7 L MCV 83.4 MCH 26.8 MCHC 32.2 RDW 21.0 H Plt Count 134 L Neut % (Auto) 79.5 H Lymph % (Auto) 9.8 L [place] % (Auto) 9.6 Eos % (Auto) 0.6 L Baso % (Auto) 0.5 Neut # (Auto) 5500 Lymph # (Auto) 700 L [place] # (Auto) 700 Eos # (Auto) 0 Baso # (Auto) 0 RBC Morphology See below Anisocytosis 2+ H Ovalocytes 2+ H Acanthocytes (Spur) 1+ Rouleaux 1+ H PT 41.8 H INR 3.8 H Sodium 141 Potassium 3.5 Chloride 108 H Carbon Dioxide 25 BUN 82 H Creatinine 2.19 H Estimated GFR 29 L BUN/Creatinine Ratio 37.4 H Glucose 105 Lactate 1.2 Calcium 8.2 L Total Bilirubin 0.7 AST 31 ALT 24 Alkaline Phosphatase 72 Troponin I 0.039 H 0.032 NT-Pro-B Natriuret Pep 61702 H Total Protein 6.6 Albumin 3.6 Globulin 3.0 Albumin/Globulin Ratio 1.2 Assessment & Plan Assessment & Plan narrative: Acute on chronic diastolic heart failure Acute respiratory failure with hypoxia -Monitor I and O; daily standing weight; -diuresis with Lasix as BP can tolerate. -check BNP and repeat in 48 hours; low sodium diet -Monitor effectiveness of diuresis. Monitor renal function. -keep potassium> 4 and magnesium> 2 -Telemetry monitoring -serial troponins, Echo -Resume BB/Jardiance -Supplemental O2 as needed, goal SpO2> 90% -Check procalcitonin and if high will start antibiotics. Atrial fibrillation on warfarin with supratherapeutic INR. -Hold warfarin for now -Pharmacy consult for dose adjustment -INR daily -Restart Coreg -Telemetry Hyperlipidemia. Restart atorvastatin. Check lipids. CKD (chronic kidney disease) stage IV. Chronic and stable. Patient at baseline creatinine around 2. -Continue to monitor. Avoid nephrotoxics. Time-Based Coding :: [TOTAL MINUTES] spent with patient and on the chart (including review of chart, obtaining history, exam, reviewing outside data, placing orders, documenting exam and treatment plan, and counseling patient) on [DATE]. Quality VTE Deep Vein Thrombosis/Pulmonary Embolism Present on Admission: No MIPS - Admit I confirm the patient?s Advance Care Plan is present, Code status is documented, Surrogate decision maker is in patient?s record [If Yes, STOP here]: Yes MIPS - Meds 'Current medications' to include all prescriptions, [id number] products, herbals, cannabis/cannabidiol products, and vitamin/mineral/dietary (nutritional) supplements. I have utilized all available resources to obtain, update, or review the patient?s current medications. [If Yes, STOP here]: Yes
[2024-06-08] MEDS: FUROSEMIDE 40 MG/4 ML VIAL IV ×2 (01:00→11:01)
[2024-06-08] MEDS: LOSARTAN 50 MG TABLET PO ×3 (01:46→21:57)
[2024-06-08] MEDS: carvediloL 12.5 MG TABLET 25 MG PO ×3 (01:46→21:58)
[2024-06-08 02:01] LABS: Procalcitonin 0.615 ng/mL (<0.5)
[2024-06-08 05:35] LABS: INR 4.1 (0.9-1.3); Prothrombin Time 45.1 SECONDS (9.4-12.5)
[2024-06-08 05:41] LABS: BUN Creatinine Ratio 37.3 (6-22); Blood Urea Nitrogen 78 mg/dL (9-20); Calcium 8.1 mg/dL (8.4-10.2); Carbon Dioxide 24 mmol/L (22-32); Chloride 109 mmol/L (98-107); Cholesterol 111 mg/dL (140-199); Estimated Glomerular Filt Rate 30 mL/min (>60); Glucose 121 mg/dL (80-110); HDL Cholesterol 34 mg/dL (40-60); HEMOLYSIS 16 (0-50); LDL Cholesterol Calculated 54 mg/dL (<100); Magnesium 2.2 mg/dL (1.6-2.3); Potassium 3.1 mmol/L (3.4-5.1); Sodium 141 mmol/L (137-145); Triglycerides 114 mg/dL (35-150)
[2024-06-08] MEDS: POTASSIUM CHLORIDE 20 MEQ TAB PO (08:49)
[2024-06-08] MEDS: NIFEdipine 30 MG TAB ER PO (08:52)
[2024-06-08] MEDS: PANTOPRAZOLE DR 40 MG TABLET PO (08:52)
[2024-06-08] MEDS: ATORVASTATIN 20 MG TABLET 40 MG PO (08:52)
[2024-06-08] MEDS: MULTIVITAMIN 1 TABLET 1 TAB PO (08:52)
[2024-06-08] MEDS: POTASSIUM CHLORIDE 20 MEQ TAB 40 MEQ PO ×2 (10:44→16:30)
[2024-06-08] MEDS: BENZONATATE 100 MG CAPSULE PO (11:01)
--- NOTE | 2024-06-08 16:06 | CM.DANOTE ---
Initial DCP Assessment Note Pt is an 88 yo male, resident of [place], arrives with SOB, admitted for management of CHF exacerbation with acute resp failure and RSV+ PCP: Salima Caputo Payer: MICHELLE/YOHANA Reviewed chart, pt discussed in multidisciplinary rounds this morning. Patient currently on room air, stand by assist in room. No barriers identified at this time to patient's safe discharge home w/family to assist once medically stable to do so; close outpatient f/u recommended. CM team will plan to follow clinical course closely in case any DC needs or concerns arise. BRANDON Love Discharge Planning/Care Management CM Discharge Assessment Start: 06/08/24 16:02 Freq: Status: Active Protocol: Document 06/08/24 16:02 DOUGLAS (Rec: 06/08/24 16:06 DOUGLAS [id number]) Discharge Planning Assessment Assigned [employer]er [employer] BRANDON Yadav DPOA/Assigned Designee Name Flaquita Paredes, spouse Contact Information [phone] Advance Directives? No Advance Directives on File No History Provided By Patient,Medical Record Household Members spouse Type of transporation used prior to Drives own vehicle admit Independent with ADL's Yes Is patient alert and oriented? Yes Barriers to Discharge No Discharge Plan Home Transportation Arrangement Family
--- NOTE | 2024-06-08 18:29 | PM.PN.1 ---
Subjective Subjective Interval history: This is an 88-year-old male with diastolic heart failure who was admitted with shortness of breath and evidence of volume overload, along with RSV infection. Improved today, now off supplemental oxygen, though he remains dyspneic with minimal exertion. Exam Vital Signs (past 8 hours): - 06/08/24 12:00 06/08/24 16:00 Temperature 96.9 F L 96.7 F L Pulse Rate 66 88 Respiratory Rate 15 15 Blood Pressure 150/54 H 156/50 H Pulse Oximetry 96 93 Oxygen Flow Rate 0 0 Oxygen Delivery Method Room Air Oxygen Flow Rate 0 Narrative Exam Narrative: General:? Patient is well developed and well nourished, in no distress at this time. Lungs:? Decreased breath sounds bilateral lung bases, no obvious wheezing, rhonchi, or rales. Cardio:? No murmurs, rubs, or gallops, irregularly irregular rhythm with normal rate. Abdomen: S NT ND. Musculoskeletal:? Muscle strength and tone are equal within normal limits, no deformity. Extremities: Trace bilateral lower extremity edema, left greater than right. Objective Labs 06/07/24 17:15 06/08/24 05:07 Labs: Laboratory Results - last 24 hr 06/07/24 06/08/24 19:00 05:07 PT 45.1 H INR 4.1 H Sodium 141 Potassium 3.1 L Chloride 109 H Carbon Dioxide 24 BUN 78 H Creatinine 2.09 H Estimated GFR 30 L BUN/Creatinine Ratio 37.3 H Glucose 121 H Calcium 8.1 L Magnesium 2.2 Troponin I 0.032 Triglycerides 114 Cholesterol 111 L LDL Cholesterol, Calc 54 HDL Cholesterol 34 L Procalcitonin 0.615 H [facility] Medical History Urinary incontinence with continuous leakage Hematuria History of UTI History of malignant neoplasm of prostate Hydronephrosis, left Left nephrolithiasis History of kidney stones History of high blood pressure Hx of gout Hx of congestive heart failure Shingles Surgical History History of prostate surgery Hx of cholecystectomy Hx of appendectomy Social History marital status: number of children: 0 household members: spouse Smoking Status: Former smoker alcohol intake: current caffeine: Yes Assessment & Plan Assessment & Plan narrative: Assessment: Acute on chronic diastolic heart failure Acute respiratory failure with hypoxia, improved RSV infection Myocardial injury Atrial fibrillation on warfarin with supratherapeutic INR. Hyperlipidemia. CKD (chronic kidney disease) stage IV. Plan: - furosemide IV q12 hr, monitor intake and output - daily labs CBC, CMP, Mg - troponin peaked and then down-trended - TTE today shows unremarkable EF or significant changes compared to previous, though evidence of massive volume overload. - elevated procal but clinically no bacterial pneumonia at this time and improving without antibiotics, consider antibiotic therapy if any worsening. - hold coumadin, dosing per pharmacy. - INR daily. Code: Full DVT: on AC, elevated INR I have utilized all available immediate resources to obtain, update, or review the patient's current medications. Dispo: patient admitted under inpatient status. Unclear if will be able to discharge home or possible SNF, will have PT/OT evaluations. Additional history obtained via discussions with the overnight provider this morning, bedside nurse. These discussions contributed to the creation of the above assessment and plan. I have reviewed patient's presenting documentation, labs, and imaging personally. Time-Based Coding :: [TOTAL MINUTES] spent with patient and on the chart (including review of chart, obtaining history, exam, reviewing outside data, placing orders, documenting exam and treatment plan, and counseling patient) on [DATE]. Quality VTE Deep Vein Thrombosis/Pulmonary Embolism Present on Admission: No
--- NOTE | 2024-06-08 18:43 | PC.NURSE ---
Pt remains stable on RA throughout shift. Some shortness of breath with exertion. Up SBA to bathroom. Family visited bedside, home prescriptions brought and sent to pharmacy. No complaints of pain, PRN administered for cough.
[2024-06-08] MEDS: Sacubitril-Valsartan [Entresto] 49-51 mg tablet 49 EACH PO (22:00)
[2024-06-09] VITALS (10 sets, daily range): BP systolic 125–145; BP diastolic 51–61; PULSE 60–78; RESP 14–24; TEMP 35.7–35.9; O2SAT 93–95
[2024-06-09] MEDS: FUROSEMIDE 40 MG/4 ML VIAL IV ×2 (00:21→11:59)
[2024-06-09 06:57] LABS: INR 3.2 (0.9-1.3)
[2024-06-09 06:58] LABS: Add Manual Diff / Slide Review NO; Basophils Absolute Auto 0 /uL (0-100); Basophils Percent Auto 0.4 % (0-2); Eosinophils Absolute Auto 100 /uL (0-450); Eosinophils Percent Auto 0.9 % (2-4); Hematocrit 35.1 % (41-53); Hemoglobin 11.5 g/dL (13.5-17.5); Lymphocytes Absolute Auto 700 /uL (1100-4500); Lymphocytes Percent Auto 9.2 % (25-40); Mean Corpuscular HGB Conc 32.7 % (30-36); Mean Corpuscular Hemoglobin 27.3 PG (26-34); Mean Corpuscular Volume 83.3 fL (80-100); Monocytes Absolute Auto 700 /uL (0-900); Monocytes Percent Auto 9.4 % (3-14); Neutrophils Absolute Auto 5800 /uL (1500-7000); Neutrophils Percent Auto 80.1 % (50-75); Platelet Count 125 X10^3/uL (150-400); Red Blood Cell Count 4.21 X10^6/uL (4.5-5.9); Red Cell Distribution Width 20.3 % (11.6-14.8); White Blood Cell Count 7.2 X10^3/uL (4.5-11.0)
[2024-06-09 07:08] LABS: BUN Creatinine Ratio 31.7 (6-22); Blood Urea Nitrogen 70 mg/dL (9-20); Calcium 8.3 mg/dL (8.4-10.2); Carbon Dioxide 28 mmol/L (22-32); Chloride 107 mmol/L (98-107); Estimated Glomerular Filt Rate 28 mL/min (>60); Glucose 122 mg/dL (80-110); HEMOLYSIS < 15 (0-50); Magnesium 2.1 mg/dL (1.6-2.3); Potassium 3.5 mmol/L (3.4-5.1); Sodium 143 mmol/L (137-145)
[2024-06-09 07:09] LABS: Anisocytosis 2+; Ovalocytes 2+
[2024-06-09] MEDS: PANTOPRAZOLE DR 40 MG TABLET PO (08:46)
[2024-06-09] MEDS: MULTIVITAMIN 1 TABLET 1 TAB PO (08:46)
[2024-06-09] MEDS: carvediloL 12.5 MG TABLET 25 MG PO ×2 (08:46→21:49)
[2024-06-09] MEDS: LOSARTAN 50 MG TABLET PO ×2 (08:46→21:48)
[2024-06-09] MEDS: POTASSIUM CHLORIDE 20 MEQ TAB PO (08:46)
[2024-06-09] MEDS: ATORVASTATIN 20 MG TABLET 40 MG PO (08:46)
[2024-06-09] MEDS: Sacubitril-Valsartan [Entresto] 49-51 mg tablet 49 EACH PO ×2 (08:47→21:47)
[2024-06-09] MEDS: NIFEdipine 30 MG TAB ER PO (08:50)
--- NOTE | 2024-06-09 09:45 | PM.PN.1 ---
Subjective Subjective Interval history: Summary: Being treated for heart failure, RSV, and possible pneumonia. He was slowly improving but still has lot of peripheral edema. Subjective: He was still coughing, mostly dry. Some dyspnea with exertion. No nausea. No fevers overnight. Exam Vital Signs (past 8 hours): - 06/09/24 04:00 06/09/24 08:00 06/09/24 08:46 Temperature 96.5 F L 96.6 F L Pulse Rate 61 64 64 Respiratory Rate 17 24 Blood Pressure 144/55 H 142/59 H 142/59 H Pulse Oximetry 94 95 Oxygen Delivery Method Oxygen Flow Rate 2 2 06/09/24 08:46 06/09/24 08:50 Temperature Pulse Rate 64 Respiratory Rate Blood Pressure 142/59 H Pulse Oximetry 95 Oxygen Delivery Method Nasal Cannula Oxygen Flow Rate 2 Oxygen Delivery Method Nasal Cannula Oxygen Flow Rate 2 Narrative Exam Narrative: NAD, alert and oriented. Fluent speech. Lungs are notable for rhonchi and expiratory wheezing, normal rate and effort. Heart is regular, no murmur gallop or rub. Abdomen is soft, non distended. Extremities: 2+ edema. Objective Labs 06/09/24 06:10 06/09/24 06:10 Labs: Laboratory Results - last 24 hr 06/09/24 06:10 WBC 7.2 RBC 4.21 L Hgb 11.5 L Hct 35.1 L MCV 83.3 MCH 27.3 MCHC 32.7 RDW 20.3 H Plt Count 125 L Neut % (Auto) 80.1 H Lymph % (Auto) 9.2 L [place] % (Auto) 9.4 Eos % (Auto) 0.9 L Baso % (Auto) 0.4 Neut # (Auto) 5800 Lymph # (Auto) 700 L [place] # (Auto) 700 Eos # (Auto) 100 Baso # (Auto) 0 RBC Morphology See below Anisocytosis 2+ H Ovalocytes 2+ H PT 35.0 H D INR 3.2 H Sodium 143 Potassium 3.5 Chloride 107 Carbon Dioxide 28 BUN 70 H Creatinine 2.21 H Estimated GFR 28 L BUN/Creatinine Ratio 31.7 H Glucose 122 H Calcium 8.3 L Magnesium 2.1 PFSH Medical History Urinary incontinence with continuous leakage Hematuria History of UTI History of malignant neoplasm of prostate Hydronephrosis, left Left nephrolithiasis History of kidney stones History of high blood pressure Hx of gout Hx of congestive heart failure Shingles Surgical History History of prostate surgery Hx of cholecystectomy Hx of appendectomy Social History marital status: number of children: 0 household members: spouse Smoking Status: Former smoker alcohol intake: current caffeine: Yes Assessment & Plan Assessment & Plan narrative: 1. Acute on chronic diastolic heart failure, improving. 2. Acute respiratory failure with hypoxia, improving. 3. RSV infection, active. 4. Demand ischemia, improved. 5. Atrial fibrillation on warfarin with supratherapeutic INR. Improving. 6. Hyperlipidemia. Stable. 7. CKD (chronic kidney disease) stage IV. Stable. Plan: - Continue furosemide IV q12 hr, monitor intake and output - daily labs CBC, CMP, Mg - troponin peaked and then down-trended - TTE: unremarkable EF or significant changes compared to previous, though evidence of massive volume overload. - Will start Antibiotics for bacterial pneumonia/ - Coumadin, dosing per pharmacy. - INR daily. CARMEN: 06/10, home with home health. Code: Full DVT: on AC, elevated INR Time-Based Coding :: [TOTAL MINUTES] spent with patient and on the chart (including review of chart, obtaining history, exam, reviewing outside data, placing orders, documenting exam and treatment plan, and counseling patient) on [DATE]. Quality VTE Deep Vein Thrombosis/Pulmonary Embolism Present on Admission: No
[2024-06-09] MEDS: cefTRIAXone 1,000 MG in SODIUM CHLORIDE 0.9% 100 ML 200 MG IV (11:59)
[2024-06-09] MEDS: DOXYCYCLINE HYCLATE 100 MG TABLET PO ×2 (11:59→21:48)
--- NOTE | 2024-06-09 13:41 | CM.DPC ---
DCP Cont. Reviewed EMR and team rounds for status updates. Per Hospitalist, plan is to continue diuresis, starting IV ABO's today, CARMEN: tomorrow, 06/10. Will need Home Health. INSTRUCTOR CREELER will talk with pt/family on Thursday for HH preference and make the referral prior to home d/c.
[2024-06-09] MEDS: POTASSIUM CHLORIDE 20 MEQ TAB 40 MEQ PO (18:59)
[2024-06-10] VITALS: BP 140/62; PULSE 84; RESP 19; TEMP 36.1; O2SAT 96
[2024-06-10 04:00] VITALS: BP 136/82; PULSE 88; RESP 18; TEMP 37.1; O2SAT 97
[2024-06-10 05:41] LABS: Add Manual Diff / Slide Review NO; Basophils Absolute Auto 100 /uL (0-100); Basophils Percent Auto 0.8 % (0-2); Eosinophils Absolute Auto 100 /uL (0-450); Eosinophils Percent Auto 1.4 % (2-4); Hematocrit 34.6 % (41-53); Hemoglobin 11.3 g/dL (13.5-17.5); Lymphocytes Absolute Auto 600 /uL (1100-4500); Lymphocytes Percent Auto 9.2 % (25-40); Mean Corpuscular HGB Conc 32.8 % (30-36); Mean Corpuscular Hemoglobin 27.4 PG (26-34); Mean Corpuscular Volume 83.7 fL (80-100); Monocytes Absolute Auto 600 /uL (0-900); Monocytes Percent Auto 8.5 % (3-14); Neutrophils Absolute Auto 5200 /uL (1500-7000); Neutrophils Percent Auto 80.1 % (50-75); Platelet Count 116 X10^3/uL (150-400); Red Blood Cell Count 4.13 X10^6/uL (4.5-5.9); Red Cell Distribution Width 20.6 % (11.6-14.8); White Blood Cell Count 6.6 X10^3/uL (4.5-11.0)
[2024-06-10 05:44] LABS: INR 2.8 (0.9-1.3); Prothrombin Time 30.5 SECONDS (9.4-12.5)
[2024-06-10 05:54] LABS: BUN Creatinine Ratio 31.8 (6-22); Blood Urea Nitrogen 71 mg/dL (9-20); Calcium 8.3 mg/dL (8.4-10.2); Carbon Dioxide 26 mmol/L (22-32); Chloride 108 mmol/L (98-107); Estimated Glomerular Filt Rate 28 mL/min (>60); Glucose 106 mg/dL (80-110); HEMOLYSIS 24 (0-50); Magnesium 2.1 mg/dL (1.6-2.3); Potassium 3.6 mmol/L (3.4-5.1); Sodium 141 mmol/L (137-145)
[2024-06-10 06:10] LABS: Anisocytosis 2+; Ovalocytes 2+; Platelet Estimate Decreased on smear
[2024-06-10] MEDS: FUROSEMIDE 40 MG/4 ML VIAL IV (06:58)
[2024-06-10 08:00] VITALS: BP 146/66; PULSE 71; RESP 16; TEMP 35.9; O2SAT 91
--- NOTE | 2024-06-10 08:05 | P.PN_ITS ---
Subjective Subjective Interval history: Summary: Being treated for heart failure, RSV, and possible pneumonia. He was slowly improving but still has lot of peripheral edema. Subjective: Exam Vital Signs (past 8 hours): - 06/10/24 04:00 Temperature 98.8 F Pulse Rate 88 Respiratory Rate 18 Blood Pressure 136/82 Pulse Oximetry 97 Oxygen Flow Rate 2 Oxygen Delivery Method Room Air Oxygen Flow Rate 2 Narrative Exam Narrative: NAD, alert and oriented. Fluent speech. Lungs are clear, normal rate and effort. Heart is regular, no murmur gallop or rub. Abdomen is soft, non distended. Extremities are free of edema. Objective Imaging Multiple studies:: Radiologist's impression: ECHO: Interpretation Summary The left ventricle is normal in size. There is mild-moderate concentric left ventricular hypertrophy. The ejection fraction is estimated to be 50-55%. This is unchanged compared to the previous study. There is a mild dyssynchronous contraction pattern due to the paced rhythm. The right ventricle is moderate to severely dilated. The interventricular septum is flattened, consistent with a right ventricular pressure/volume condition. Right ventricular systolic function is mildly reduced. The right ventricular systolic pressure is estimated to be at least 92 mmHg based on an estimated right atrial pressure of 15 mm Hg. There is severe pulmonary hypertension. The left atrium is severely dilated. The right atrium is moderately dilated. There is mild to moderate mitral annular calcification. There is mild to moderate mitral regurgitation. There is a bioprosthetic aortic valve. There is mild to moderate perivalvular regurgitation around the prosthetic aortic valve. The peak aortic velocity is 2.2 m/sec. There is severe tricuspid regurgitation. The aortic root is normal size. There is a trivial to small pericardial effusion noted. Chest CT: 1. Scattered scarring/atelectasis in bilateral mid to lower lung zone with bronchiectasis and bronchial wall thickening concerning for reactive airway disease. Small infiltrate/atelectasis are likely present in posterior medial aspect of left lingular segment and posterior medial aspect of bilateral lung bases. No pleural effusion or pneumothorax. Airway is patent. 2. No mediastinal or hilar lymphadenopathy. Cardiomegaly, no pericardial effusion. 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 Moderate to severe coronary artery atherosclerotic calcifications. 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 Labs 06/10/24 04:51 06/10/24 04:51 Labs: Laboratory Results - last 24 hr 02/07/25 04:51 WBC 6.6 RBC 4.13 L Hgb 11.3 L Hct 34.6 L MCV 83.7 MCH 27.4 MCHC 32.8 RDW 20.6 H Plt Count 116 L Neut % (Auto) 80.1 H Lymph % (Auto) 9.2 L [place] % (Auto) 8.5 Eos % (Auto) 1.4 L Baso % (Auto) 0.8 Neut # (Auto) 5200 Lymph # (Auto) 600 L [place] # (Auto) 600 Eos # (Auto) 100 Baso # (Auto) 100 Platelet Estimate Decreased on smear RBC Morphology See below Anisocytosis 2+ H Ovalocytes 2+ H PT 30.5 H INR 2.8 H Sodium 141 Potassium 3.6 Chloride 108 H Carbon Dioxide 26 BUN 71 H Creatinine 2.23 H Estimated GFR 28 L BUN/Creatinine Ratio 31.8 H Glucose 106 Calcium 8.3 L Magnesium 2.1 PFSH Medical History Urinary incontinence with continuous leakage Hematuria History of UTI History of malignant neoplasm of prostate Hydronephrosis, left Left nephrolithiasis History of kidney stones History of high blood pressure Hx of gout Hx of congestive heart failure Shingles Surgical History History of prostate surgery Hx of cholecystectomy Hx of appendectomy Social History marital status: number of children: 0 household members: spouse Smoking Status: Former smoker alcohol intake: current caffeine: Yes Assessment & Plan Assessment & Plan narrative: 1. Acute on chronic diastolic heart failure, improving. 2. Acute respiratory failure with hypoxia, improving. 3. RSV infection, active. 4. Demand ischemia, improved. 5. Atrial fibrillation on warfarin with supratherapeutic INR. Improving. 6. Hyperlipidemia. Stable. 7. CKD (chronic kidney disease) stage IV. Stable. Plan: - Continue furosemide IV q12 hr, monitor intake and output - daily labs CBC, CMP, Mg - troponin peaked and then down-trended - TTE: unremarkable EF or significant changes compared to previous, though evidence of massive volume overload. - Will start Antibiotics for bacterial pneumonia/ - Coumadin, dosing per pharmacy. - INR daily. CARMEN: 06/10, home with home health. Code: Full DVT: on AC, elevated INR Time-Based Coding :: [TOTAL MINUTES] spent with patient and on the chart (including review of chart, obtaining history, exam, reviewing outside data, placing orders, documenting exam and treatment plan, and counseling patient) on [DATE]. Quality VTE Deep Vein Thrombosis/Pulmonary Embolism Present on Admission: No
[2024-06-10 09:19] VITALS: BP 144/66; PULSE 70
[2024-06-10] MEDS: carvediloL 12.5 MG TABLET 25 MG PO (09:19)
[2024-06-10 09:20] VITALS: BP 144/66; PULSE 71
[2024-06-10] MEDS: LOSARTAN 50 MG TABLET PO (09:20)
[2024-06-10] MEDS: POTASSIUM CHLORIDE 20 MEQ TAB PO (09:20)
[2024-06-10] MEDS: PANTOPRAZOLE DR 40 MG TABLET PO (09:20)
[2024-06-10] MEDS: MULTIVITAMIN 1 TABLET 1 TAB PO (09:20)
[2024-06-10] MEDS: DOXYCYCLINE HYCLATE 100 MG TABLET PO (09:20)
[2024-06-10] MEDS: NIFEdipine 30 MG TAB ER PO (09:20)
[2024-06-10] MEDS: Sacubitril-Valsartan [Entresto] 49-51 mg tablet 49 EACH PO (09:21)
[2024-06-10] MEDS: ATORVASTATIN 20 MG TABLET 40 MG PO (09:21)
[2024-06-10 12:00] VITALS: BP 147/50; PULSE 60; RESP 16; TEMP 35.9; O2SAT 93
[2024-06-10] MEDS: cefTRIAXone 1,000 MG in SODIUM CHLORIDE 0.9% 100 ML 200 MG IV (12:08)
--- NOTE | 2024-06-10 14:23 | PM.DS.1 ---
History of Present Illness History of Present Illness Chief complaint: CHF concerns from [facility] Narrative: From H&P: 88 years old male with history of hypertension, hyperlipidemia, CHF, CKD stage IV presented to the ER with increased shortness of breath, wet cough and generalized weakness in the last several days. Recently diagnosed with RSV. He also has chronic leg swelling. Denies any PND, orthopnea, chest pain, palpitations, nausea, vomiting, abdominal pain, diarrhea or dysuria. Compliant with his home medications. Lives with his who had pneumonia 1 month ago. Laboratory shows positive for RSV, WBC 6.9, hemoglobin 12.4, INR 3.8, lactic acid 1.2, creatinine 2.19, potassium 3.5, blood sugar 105, troponin 0.03, BNP 15,900, EKG ventricular paced rhythm at a rate of 62. CT of the chest shows scattered scarring/atelectasis in the bilateral mid to lower lung zones with bronchiectasis and bronchial wall thickening concerning for reactive airway disease. Cardiomegaly. No mediastinal or hilar lymphadenopathy. The patient has echo in March 2024 with ejection fraction of 55-60% and diastolic dysfunction. Clinically the patient looks fluid overloaded. Discharge Providers Provider Date of admission: 06/07/24 21:03 Discharge Date: 06/10/24 Primary care physician: Salima Caputo PA-C Consults: 06/10/24 12:42 Consult to Physical Therapy Evaluate & Treat Comment: Physician Instructions: Evaluate and Treat Discharge provider: Hunter Bashir MD Summary Hospital Course Discharge Diagnosis: 1. Acute on chronic diastolic heart failure, improving. 2. Acute respiratory failure with hypoxia, improving. 3. RSV infection, active. 4. Demand ischemia, improved. 5. Atrial fibrillation on warfarin with supratherapeutic INR. Improving. 6. Hyperlipidemia. Stable. 7. CKD (chronic kidney disease) stage IV. Stable. Status at Discharge Cognitive/behavioral status at discharge: oriented Functional status at discharge: uses cane/walker Overall status at discharge: patient is back to baseline Time Spent with Patient Time spent: Greater than 30 minutes Exam Vital Signs (past 8 hours): - 06/10/24 08:00 06/10/24 09:19 06/10/24 09:20 Temperature 96.6 F L Pulse Rate 71 70 71 Respiratory Rate 16 Blood Pressure 146/66 H 144/66 H 144/66 H Pulse Oximetry 91 Oxygen Flow Rate 2 06/10/24 12:00 Temperature 96.7 F L Pulse Rate 60 Respiratory Rate 16 Blood Pressure 147/50 H Pulse Oximetry 93 Oxygen Flow Rate 0 Oxygen Delivery Method Room Air Oxygen Flow Rate 0 Narrative Exam Narrative: NAD, alert and oriented. Fluent speech. Lungs are clear, normal rate and effort. Heart is regular, no murmur gallop or rub. Abdomen is soft, non distended. Extremities are with 1+ edema. Objective ECG Impression: Ventricular-paced rhythm with occasional premature ventricular complexes Imaging Echo: Radiologist's impression: nterpretation Summary The left ventricle is normal in size. There is mild-moderate concentric left ventricular hypertrophy. The ejection fraction is estimated to be 50-55%. This is unchanged compared to the previous study. There is a mild dyssynchronous contraction pattern due to the paced rhythm. The right ventricle is moderate to severely dilated. The interventricular septum is flattened, consistent with a right ventricular pressure/volume condition. Right ventricular systolic function is mildly reduced. The right ventricular systolic pressure is estimated to be at least 92 mmHg based on an estimated right atrial pressure of 15 mm Hg. There is severe pulmonary hypertension. The left atrium is severely dilated. The right atrium is moderately dilated. There is mild to moderate mitral annular calcification. There is mild to moderate mitral regurgitation. There is a bioprosthetic aortic valve. There is mild to moderate perivalvular regurgitation around the prosthetic aortic valve. The peak aortic velocity is 2.2 m/sec. There is severe tricuspid regurgitation. The aortic root is normal size. There is a trivial to small pericardial effusion noted. Labs 06/10/24 04:51 06/10/24 04:51 Labs: Laboratory Results - last 24 hr 06/10/24 04:51 WBC 6.6 RBC 4.13 L Hgb 11.3 L Hct 34.6 L MCV 83.7 MCH 27.4 MCHC 32.8 RDW 20.6 H Plt Count 116 L Neut % (Auto) 80.1 H Lymph % (Auto) 9.2 L [place] % (Auto) 8.5 Eos % (Auto) 1.4 L Baso % (Auto) 0.8 Neut # (Auto) 5200 Lymph # (Auto) 600 L [place] # (Auto) 600 Eos # (Auto) 100 Baso # (Auto) 100 Platelet Estimate Decreased on smear RBC Morphology See below Anisocytosis 2+ H Ovalocytes 2+ H PT 30.5 H INR 2.8 H Sodium 141 Potassium 3.6 Chloride 108 H Carbon Dioxide 26 BUN 71 H Creatinine 2.23 H Estimated GFR 28 L BUN/Creatinine Ratio 31.8 H Glucose 106 Calcium 8.3 L Magnesium 2.1 PFSH Medical History Urinary incontinence with continuous leakage Hematuria History of UTI History of malignant neoplasm of prostate Hydronephrosis, left Left nephrolithiasis History of kidney stones History of high blood pressure Hx of gout Hx of congestive heart failure Shingles Surgical History History of prostate surgery Hx of cholecystectomy Hx of appendectomy Social History marital status: number of children: 0 household members: spouse Smoking Status: Former smoker alcohol intake: current caffeine: Yes Discharge Assessment & Plan Assessment and Plan Assessment: 1. Acute on chronic diastolic heart failure, improved. 2. Acute respiratory failure with hypoxia, improved. 3. RSV infection, improved. 4. Demand ischemia, improved. 5. Atrial fibrillation on warfarin with supratherapeutic INR. Improved. 6. Hyperlipidemia. Stable. 7. CKD (chronic kidney disease) stage IV. Stable. Plan of Treatment: He was admitted with acute hypoxic respiratory failure secondary to RSV and acute on diastolic heart failure. e was also treated with antibiotics for possible pneumonia and diuresed. On the day of discharge, he was at baseline on roomair and felt he was ready for discharge. I met with his daughter prior to discharge and she was comfortable with his level of function and the decision to let him return home. His creatinine remained relatively stable throughout his stay as did his hemoglobin. He had no leukocytosis or fevers. He will be discharged on several more days of oral antibiotics. Discharge Plan Discharge Plan Patient Disposition: Home Health Service Provider Discharge Comment: Stable for discharge. Discharge orders & Medications Prescriptions: New doxycycline hyclate 100 mg Tablet 100 mg PO BID Qty: 10 0RF Continued warfarin 2.5 mg tablet 2.5 mg PO DAILY Rx Instructions: ALTERNATES 1.25MG AND 2.5MG DAILY Centrum 18-400 mg-mcg tablet 1 tab PO DAILY potassium chloride 20 mEq tablet extended release 20 meq PO DAILY torsemide 20 mg tablet 40 mg PO DAILY Patient Comments: [NO ORIGINAL SIG] carvedilol 25 mg tablet 25 mg PO BID Jardiance 10 mg tablet 10 mg PO DAILY albuterol sulfate 90 mcg/actuation HFA aerosol inhaler 2 inh PO Q6H PRN (Reason: for wheezing) Qty: 8.5 12RF Patient Comments: Pt has them, but does not use atorvastatin 40 mg tablet 40 mg PO DAILY allopurinol 100 mg tablet 50 mg PO DAILY Follow up/Referrals: Salima Caputo PA-C [Primary Care Provider] - Diet/Activity/Treatments Diet: Low-sodium Activity: As tolerated, use a cane at all times. Visit Report/Discharge Packet Instructions: DI for Respiratory Syncytial Virus -- Adults Stand Alone Forms: Congestive Heart Failure, Patient Portal/API Discharge Data Primary Care Provider: Salima Caputo Quality VTE Deep Vein Thrombosis/Pulmonary Embolism Present on Admission: No MIPS - DC The patient has a history of heart transplant or Left Ventricular Assist Device (LVAD). If yes, STOP here.: No The patient has current or prior documentation of left ventricular ejection fraction (LVEF) less than or equal to 40%, or moderate or severely depressed left ventricular systolic function.: No A. The patient was prescribed or already taking an Angiotensin-Converting Enzyme (LYLE) Inhibitor, or Angiotensin Receptor Emily (ARB).: No
--- NOTE | 2024-06-10 14:35 | PC.NURSE ---
PATIENT MEDS HELD IN PHARMACY, GIVEN BACK TO HIM FOR D/C
--- NOTE | 2024-06-10 15:00 | CM.DPNOTE ---
DC Note Patient has been discharged home w/family. IMM reviewed and provided. Short notice IMM discussed, patient waives right for short notice. Patient is eager to return home, denies need for HH at this time. Daughter reports that both of her parents are scheduled for palliative care conversation and meeting with in home care agency. Plan: Discharge home w/family via family to transport. patient/family decline need for HH. DOUGLAS
--- NOTE | 2024-06-10 15:50 | PC.NURSE ---
Pt discharged with family member to private vehicle with all belongings. Pt given education on RSV, medications, when to call doctor or 911. Vitals taken, IV removed intact, Tele discharged. Pt left floor at 1445.
== END 2024-06-10 14:45 | disposition home or self-care (01) | DRG 291 ==
LOC: ED 18:53 → AC 21:04
PROVIDERS: Emergency Medicine; Internal Medicine; Admitting Provider Internal Medicine; Emergency Provider Emergency Medicine; PCP Physician Assistant; Referring Provider Emergency Medicine; Visit Provider Internal Medicine
DX: I13.0 Hypertensive heart and chronic kidney disease with heart failure and stage 1 through stage 4 chronic kidney disease, or unspecified chronic kidney disease (principal); I50.33 Acute on chronic diastolic (congestive) heart failure; J96.01 Acute respiratory failure with hypoxia; J18.9 Pneumonia, unspecified organism; N18.4 Chronic kidney disease, stage 4 (severe); I24.89 Other forms of acute ischemic heart disease; I48.91 Unspecified atrial fibrillation; R79.1 Abnormal coagulation profile; E78.5 Hyperlipidemia, unspecified; J98.8 Other specified respiratory disorders; B97.4 Respiratory syncytial virus as the cause of diseases classified elsewhere; M10.9 Gout, unspecified; Z87.891 Personal history of nicotine dependence; Z79.01 Long term (current) use of anticoagulants; R05.1 Acute cough
CPT/HCPCS: 0241U; 36415; 71250; 80048; 80053; 80061; 83605; 83735; 83880; 84145; 84484; 85025; 85610; 93005; 93306; 96374; 99284; 99285; J0696; J1940

== ENCOUNTER → 2025-03-20 13:35 | Outpatient (CLI) | payer MEDICARE, SELFPAY ==
[2024-06-08 14:45] VITALS: BMI 32.0
--- NOTE | 2025-03-20 13:36 | DI.NM.S_ITS ---
PROCEDURE: NM RENAL FLOW AND FUNCTION RADIOPHARMACEUTICAL: 10.8 mCi Tc-99m MAG3 IV. INDICATIONS: Other specified disorders of kidney and ureter TECHNIQUE: The patient was hydrated orally before the examination was begun. After intravenous administration of Tc-99m MAG3, posterior abdominal radionuclide angiogram and sequential (1 minute per frame) renal images were obtained. A time-activity curve for each kidney was generated and analyzed. No IV Lasix administered. COMPARISON: [facility], CT, CT ABDOMEN PELVIS WO CON, 12/31/2024, 19:26. FINDINGS: Perfusion: Decreased flow is noted in the bilateral kidneys. Morphology: Poor visualization of the left kidney with limited radiotracer uptake. Relative photopenic area in the left kidney could represent hydronephrosis. Right kidney is inferiorly displaced. Bladder is visualized and appears normal in morphology. Function: Limited left renal function. Better right renal function. Poor visualization of the left kidney during dynamic imaging. The right kidney contributes 63.9 % of total renal function. The left kidney contributes 36.1 % of total renal function. There is normal tracer excretion by both kidneys, and subsequent clearance of activity from both renal collecting systems. IMPRESSION: Limited radiotracer activity identified in the left kidney. Possible hydronephrosis of the left kidney. Right kidney function of 63.9%. Left kidney function of 36.1%. Bladder appears grossly unremarkable. Dictated by: Anika Bashir M.D. on 03/21/2025 at 13:38 Approved by: Anika Bashir M.D. on 03/21/2025 at 13:46
== END ==
PROVIDERS: PCP Physician Assistant; Referring Provider Physician Assistant; Visit Provider Urology
DX: N28.89 Other specified disorders of kidney and ureter (principal); C64.2 Malignant neoplasm of left kidney, except renal pelvis
CPT/HCPCS: 78708; A9562